=== PATIENT | male | born 1965 ===

== ENCOUNTER 2023-08-18 08:13 | Inpatient (IN) | payer BC, OTHER ==
[2023-08-18] MEDS ORDERED: RX INFO: IV CONTRAST WAS GIVEN 1 EACH MISC MISCELLANE PRN (10:47)
[2023-08-18] MEDS ORDERED: HEPARIN SODIUM 1,000 UN/ML (10ML VL) IV PRN (10:52)
[2023-08-18] MEDS: SODIUM CHLORIDE 0.9% 1,000 ML IV SCH (11:16)
[2023-08-18] MEDS: HEPARIN SOD,PORK IN 0.45% NACL 25,000 UNIT in 0.45% NACL 1 250ML.BAG IV SCH (11:26)
[2023-08-18] MEDS ORDERED: METOPROLOL TARTRATE 25 MG TAB PO ONE (11:30)
[2023-08-18] MEDS: LOSARTAN 50 MG TAB PO SCH ×3 (11:31→20:19)
[2023-08-18 12:29] LABS: Basophils % (A) 1 %; Eosinophils # (A) 0.2 k/uL (0-0.7); Eosinophils % (A) 3 %; HCT 42.9 % (39.0-53.0); HGB 14.9 gm/dL (13.0-17.5); Lymphocytes # (A) 2.8 k/uL (1.0-4.8); Lymphocytes % (A) 43 %; MCH 30.3 pg (25.0-35.0); MCHC 34.7 g/dL (31.0-37.0); MCV 87.5 fL (80.0-100.0); Mean Platelet Volume 7.3; Monocytes # (A) 0.3 k/uL (0-1.0); Monocytes % (A) 5 %; Neutrophils # (A) 2.9 k/uL (1.3-7.7); Neutrophils % (A) 45 %; Platelet Count 211 k/uL (150-450); RBC 4.91 m/uL (4.30-5.90); WBC 6.4 k/uL (3.8-10.6)
[2023-08-18 12:46] LABS: INR 1.1 (<1.2); Partial Thromboplastin Time 24.6 sec (22.0-30.0); Prothrombin Time 11.5 sec (10.0-12.5)
--- NOTE | 2023-08-18 13:18 | US ---
EXAMINATION TYPE: Pre-Operative Non-Invasive Evaluation of the hand for Potential Radial Artery Demetra , Measurements only DATE OF EXAM: 08/18/2023 12:46 PM CLINICAL INDICATION: Male, 57 years old with history of measurements only; SIDE PERFORMED: Left Right wrist has compression bandage from procedure. TECHNIQUE: Radial artery is measured utilizing real time linear array sonography. Dominant hand: Right Duplex Findings: Radial Artery: Color flow seen Measurements in mm, transverse view: Right Radial: not done / not ordered Left Radial: Proximal: 4.1 x 4.3 mm Mid: 3.5 x 4.2 mm Distal: 2.9 x 3.6 mm IMPRESSION: See above.
--- NOTE | 2023-08-18 13:19 | US ---
EXAMINATION TYPE: US vein mapping BIL DATE OF EXAM: 08/18/2023 12:46 PM COMPARISON: NONE CLINICAL INDICATION: Male, 57 years old with history of preop cardiac surgery; SIDE PERFORMED: TECHNIQUE: Lower extremity saphenous vein is examined and measured utilizing real time linear array sonography. Patient History: Smoker: former x 9 years Heart Disease: yes, two heart stents Previous DVT: no Vascular Surgery: yes Discoloration: no Hypertension: yes Diabetes: no Paralysis: no Varicosities: no Edema: no DUPLEX FINDINGS: Measurements in mm: Right Greater Saphenous: Groin: 4.7 x 4.6 mm High Thigh: 4.0 x 4.9 mm Mid Thigh: 3.5 x 4.4 mm Above Knee: 3.3 x 3.8 mm Knee: 3.4 x 3.5 mm Below Knee: 3.4 x 4.6 mm Mid Calf: 2.9 x 4.9 mm At Ankle: 3.5 x 3.9 mm Left Greater Saphenous: Groin: 5.8 x 5.6 mm High Thigh: 2.6 x 4.0 mm Mid Thigh: 5.5 x 5.7 mm Above Knee: 3.4 x 4.7 mm Knee: 3.1 x 3.8 mm Below Knee: 3.5 x 4.1 mm Mid Calf: 3.7 x 4.4 mm At Ankle: 3.1 x 3.9 mm IMPRESSION: 1. Bilateral GSV measurements listed above. 2. Performing surgeon to determine viability as conduit.
--- NOTE | 2023-08-18 13:26 | US ---
EXAMINATION TYPE: US carotid duplex BILAT DATE OF EXAM: 08/18/2023 COMPARISON: NONE CLINICAL INDICATION: Male, 57 years old with history of CABG; TECHNIQUE: Carotid duplex ultrasound examination. Indirect Doppler criteria was utilized. FINDINGS: EXAM MEASUREMENTS: RIGHT: Peak Systolic Velocity (PSV) cm/sec ----- Right CCA: 32 ----- Right ICA: 106 ----- Right ECA: 112 ICA/CCA ratio: 1.7 RIGHT: End Diastole cm/sec ----- Right CCA: 15 ----- Right ICA: 27 ----- Right ECA: 16 LEFT: Peak Systolic Velocity (PSV) cm/sec ----- Left CCA: 82 ----- Left ICA: 112 ----- Left ECA: 150 ICA/CCA ratio: 1.4 LEFT: End Diastole cm/sec ----- Left CCA: 23 ----- Left ICA: 24 ----- Left ECA: 11 VERTEBRALS (direction of flow): Right Vertebral: Antegrade Left Vertebral: Antegrade Rhythm: Normal HEAD OF TALENT MANAGEMENT NOTES: Calcified plaque noted bilateral CCA bulbs, elevated velocities noted but still wi thin normal limits, and no intimal wall thickening seen. IMPRESSION: Bilateral atherosclerotic disease with no significant hemodynamic stenosis as visualized. Criteria for Assigning % of Stenosis / Diameter reduction (Estimation based on the indirect measurements of the internal carotid artery velocities (ICA PSV). 1. Normal (no stenosis)=ICA PSV < 125 cm/s: ratio < 2.0: ICA EDV<40 cm/s. 2. Less than 50% stenosis=ICA PSV < 125 cm/s: ratio < 2.0: ICA EDV<40 cm/s. 3. 50 to 69% stenosis=ICA PSV of 125 to 230 cm/s: ration 2.0 ? 4.0: ICA EDV 40-100 cm/s. 4. Greater than 70% stenosis to near occlusion= ICA PSV > 230 cm/s: ratio > 4.0: ICA EDV > 100 cm/s. 5. Near occlusion= ICA PSV velocities may be low or undetectable: variable ratio and ICA EDV. 6. Total occlusion=unable to detect flow.
--- NOTE | 2023-08-18 14:52 | US ---
EXAMINATION TYPE: US arterial LE single level DATE OF EXAM: 08/18/2023 2:28 PM CLINICAL INDICATION: Male, 57 years old with history of Ankle Brachial Index (TANVI); open heart History of: Smoker: previous Hypertension: Yes Diabetic: No Hyperlipidemia: Yes TIA/CVA: Yes Previous Vascular Surgery: Yes CAD: No SD: Yes Vascular Ulcers: No Claudication: No Gangrene: No Doppler Waveforms: Right: Multiphasic Left: Multiphasic Ankle-Brachial Indices: Right: 1.0 Left: 1.0 Toe Brachial Indices: Right: 0.92 Left: 0.73 IMPRESSION: Normal bilateral TANVI.
--- NOTE | 2023-08-18 15:14 | P.GSCN ---
History of Present Illness Consult date: 08/18/23 Reason for Consult: Coronary artery disease Requesting physician: Carlos Gómez History of present illness: This is a 57-year-old gentleman who follows with the [facility] outpatient for primary care. He has a previous medical history of coronary artery disease with previous myocardial infarction and PCI, hypertension, hyperlipidemia, previous tobacco dependence and occasional EtOH use. This gentleman has had symptoms of chest pain and pressure with moderate amount of activity. Apparently he underwent stress test on August 15 with evidence of inferior STT wave changes, reversible defect in the inferior wall with preserved ejection fraction. He underwent heart catheterization today at [facility] by Dr. Gómez which demonstrated severe triple vessel disease, complete occlusion of the right coronary artery, 70% ramus stenosis, proximal LAD stenosis 95%, and collaterals from the left system predominantly circumflex supplying the distal branches of the RCA as well as the main trunk. He also had transthoracic echocardiogram completed demonstrating normal left ventricular size and function with EF 55% and no significant valvular pathology. Due to findings on heart catheterization Dr. Gómez contacted Dr. Walls and transferred the patient to [facility] for surgical revascularization recommendations. Review of Systems Review of systems was completed and was negative except as noted - Cardiovascular Reports as per HPI, Reports chest pain - Gastrointestinal Reports dyspepsia - Psychiatric Reports anxiety Past Medical History Past Medical History: Coronary Artery Disease (CAD), Chest Pain / Angina, Hyperlipidemia, Hypertension, Myocardial Infarction ([place]) History of Any Multi-Drug Resistant Organisms: None Reported Past Surgical History: Heart Catheterization With Stent, Hernia Repair Past Anesthesia/Blood Transfusion Reactions: No Reported Reaction Date of Last Stent Placement:: 2000 Past Psychological History: Anxiety Smoking Status: Former smoker Past Alcohol Use History: Occasional Additional Past Alcohol Use History / Comment(s): 4 drinks per week Past Drug Use History: None Reported Additional History: Quit smoking 9 years ago Medications and Allergies Home Medications Medication Instructions Recorded Confirmed Type Aspirin 81 mg PO DAILY 08/18/23 08/18/23 History Cyanocobalamin (Vitamin B-12) 1,000 mcg PO DAILY 08/18/23 08/18/23 History [Vitamin B-12] Ergocalciferol (Vitamin D2) 1,250 mcg PO TH 08/18/23 08/18/23 History [Drisdol (50,000 Iu)] Loratadine [Claritin] 10 mg PO DAILY 08/18/23 08/18/23 History Nitroglycerin Sl Tabs [Nitrostat] 0.4 mg SUBLINGUAL Q5M PRN 08/18/23 08/18/23 History [place]-3/Dha/Epa/Fish Oil [Fish Oil 1 cap PO DAILY 08/18/23 08/18/23 History 1,000 mg Softgel] atenoloL [Tenormin] 50 mg PO DAILY 08/18/23 08/18/23 History lisinopriL [Zestril] 20 mg PO DAILY 08/18/23 08/18/23 History Allergies Allergy/AdvReac Type Severity Reaction Status Date / Time Penicillins Allergy Unknown Verified 08/18/23 13:09 Childhood Surgical - Exam Vital Signs Pulse Resp BP Pulse Ox 50 L 18 176/110 98 08/18/23 10:05 08/18/23 10:05 08/18/23 10:05 08/18/23 10:05 CONSTITUTIONAL: Awake and alert, appears comfortable, cooperative, well- developed, well-nourished, no pain, no acute distress EYES: Pupils equal, round, reactive to light, normal ocular movement ENT: Moist mucous membranes without oral lesions present NECK: No masses, no bruits, trachea midline RESPIRATORY: Lungs sounds clear to auscultation bilaterally. Respirations even, nonlabored. Currently on room air with oxygen saturation 97%. Strong cough. No chest wall deformities. No clubbing or cyanosis present CARDIOVASCULAR: S1, S2 present. Regular rate and rhythm, sinus rhythm on telemetry. Palpable peripheral pulses bilaterally. No edema present. No calf pain or tenderness noted. No significant lower extremity varicosities noted. Left radial Manan's test less than 8 seconds. GASTROINTESTINAL: Abdomen soft, nontender, nondistended without masses or organomegaly noted. There is no rebound or guarding present. Active bowel sounds present 4 quadrants. GENITOURINARY: Deferred INTEGUMENTARY: Skin is warm and dry with evidence of good perfusion. NEUROLOGIC: Cranial nerves II through XII intact, normal coordination, no obvious motor or sensory deficits, speech is normal MUSKULOSKELETAL: Able to move all extremities, strength equal bilaterally, normal posture PSYCHIATRIC: Alert and oriented to person place and time, appropriate affect, intact judgment and insight Results - Labs 08/18/23 11:58 - Imaging Additional studies: Cardiac catheterization films reviewed with Dr. Walls Assessment and Plan Assessment: Coronary artery disease, previous myocardial infarction and PCI in 2000 Hypertension Hyperlipidemia Previous tobacco dependence Plan: The patient was seen and examined on the cardiac stepdown unit with Dr. Walls. Chart/diagnostics were reviewed. The usual perioperative course of open heart surgery is discussed in detail with the patient and his family, risks benefits were reviewed, all questions were answered and the patient does consent to surgery. Preoperative testing was initiated, was completed will calculate STS risk score and discuss with the patient. 5 m walk test completed, #1 2.56 seconds, #2 3.37 seconds, #3 2.98 seconds. Recommend continuing aspirin, statin, beta cathie. We will consult pulmonology after bedside spirometry completed. Increase activity as tolerated. More recommendations to follow regarding timing of surgical revascularization. Thank you Dr. Gómez for this consult, we will follow along with you. I have personally seen and examined the patient, performed the documentation and the assessment and plan as written. Number of minutes spent on the visit: 30. FREDIS Hidalgo
[2023-08-18] MEDS: ATORVASTATIN 80 MG TAB PO SCH (20:19)
[2023-08-18] MEDS: METOPROLOL TARTRATE 25 MG TAB PO SCH (20:19)
[2023-08-19] MEDS: SODIUM CHLORIDE 0.9% 1,000 ML IV SCH (02:59)
[2023-08-19] MEDS: HEPARIN SOD,PORK IN 0.45% NACL 25,000 UNIT in 0.45% NACL 1 250ML.BAG IV SCH (06:48)
--- NOTE | 2023-08-19 08:28 | HP ---
HISTORY AND PHYSICAL CHIEF COMPLAINT: Chest pain. HISTORY OF PRESENT ILLNESS: This is a 57-year-old white male, history can be found in the documents accompanying him from [facility] where he was admitted with chest pain. He underwent cardiac cath and was found to have triple-vessel disease and was transferred here for definitive treatment. REVIEW OF SYSTEMS: He is currently not having chest pain. He has had no shortness of breath, headache, abdominal pain, etc. PAST MEDICAL HISTORY, FAMILY HISTORY AND PERSONAL AND SOCIAL HISTORIES: Can be found in detail from [facility] records. PHYSICAL EXAMINATION: VITAL SIGNS: Normal. HEENT: Head, ears, eyes, nose, mouth and throat are normal. CHEST: Clear. CARDIAC: Normal sinus rhythm. ABDOMEN: Soft and nontender without any visceromegaly or masses. EXTREMITIES: Normal. NEUROLOGICAL: He is intact. DIAGNOSIS: He is admitted to the hospital with diagnosis, 1. Triple-vessel coronary artery disease. PLAN: Consult with both cardiology and cardiac surgery. MMODL / IJN: [id number] /
[2023-08-19 09:11] LABS: Basophils # (A) 0.1 k/uL (0-0.2); Basophils % (A) 1 %; Eosinophils # (A) 0.2 k/uL (0-0.7); Eosinophils % (A) 4 %; HCT 45.2 % (39.0-53.0); HGB 15.4 gm/dL (13.0-17.5); Lymphocytes # (A) 2.2 k/uL (1.0-4.8); Lymphocytes % (A) 39 %; MCH 30.1 pg (25.0-35.0); MCHC 34.1 g/dL (31.0-37.0); MCV 88.3 fL (80.0-100.0); Mean Platelet Volume 7.2; Monocytes # (A) 0.3 k/uL (0-1.0); Monocytes % (A) 5 %; Neutrophils # (A) 2.8 k/uL (1.3-7.7); Neutrophils % (A) 49 %; Platelet Count 221 k/uL (150-450); RBC 5.12 m/uL (4.30-5.90); WBC 5.7 k/uL (3.8-10.6)
[2023-08-19 09:29] LABS: Prothrombin Time 11.3 sec (10.0-12.5)
[2023-08-19] MEDS: METOPROLOL TARTRATE 25 MG TAB PO SCH ×2 (09:43→22:08)
[2023-08-19] MEDS: HEPARIN SODIUM,PORCINE 5,000 UNIT/ML 1 ML VIAL SQ SCH ×2 (09:43→18:03)
[2023-08-19] MEDS: ASPIRIN 81 MG PO SCH (09:43)
[2023-08-19 09:44] LABS: African American GFR (CKD) >90 (>60 ml/min/1.73 sqM); Anion Gap 15 mmol/L; Blood Urea Nitrogen 15 mg/dL (9-20); Calcium 9.5 mg/dL (8.4-10.2); Carbon Dioxide 20 mmol/L (22-30); Chloride 104 mmol/L (98-107); Glucose 163 mg/dL (74-99); Magnesium 1.9 mg/dL (1.6-2.3); Non-African American GFR(CKD) >90 (>60 ml/min/1.73 sqM); Potassium 4.1 mmol/L (3.5-5.1); Sodium 139 mmol/L (137-145)
[2023-08-19] MEDS ORDERED: NITROGLYCERIN SL TABS 0.4 MG TAB SUBLINGUAL PRN (10:51)
[2023-08-19] MEDS ORDERED: atenoloL 50 MG TAB PO SCH (11:00)
[2023-08-19] MEDS ORDERED: ASPIRIN 81 MG PO SCH (11:00)
[2023-08-19] MEDS ORDERED: lisinopriL 20 MG TAB PO SCH (11:00)
--- NOTE | 2023-08-19 11:40 | P.PN ---
Subjective Progress Note Date: 08/19/23 Principal diagnosis: Coronary artery disease. History of previous myocardial infarction and PCI in 2000, hypertension, hyperlipidemia, previous tobacco dependence The patient was seen and examined this morning sitting up in bed on the cardiac stepdown unit in no acute distress eating breakfast. He denies any chest pain/shortness of breath/abdominal pain currently. Discussion took place yesterday between the patient/ and Dr. Walls. At this time our plan is for off pump CABG Tuesday08/22/[address] Walls. This is agreeable to the patient. STS risk calculated and discussed with the patient. No other new concerns. Objective - Vital Signs Vital signs: Vital Signs Temp 97.9 F 08/19/23 00:00 Pulse 62 08/19/23 04:00 Resp 16 08/19/23 04:00 BP 148/82 08/19/23 04:00 Pulse Ox 98 08/19/23 04:00 FiO2 Intake & Output 08/18/23 08/19/23 08/19/23 18:59 06:59 18:59 Intake Total 69.646 162.778 360 Output Total 200 Balance 69.646 -37.222 360 Weight 86.183 kg 87 kg Intake: Intake, IV Titration 69.646 162.778 Amount Heparin Sod,Pork in 0.45% 69.646 162.778 NaCl 25,000 unit In 0.45 % NaCl 1 250ml.bag @ 11.6 UNITS/KG/HR 9.997 mls/hr IV .Q24H [facility] Rx#: [id number] Oral 0 360 Output: Urine 200 Other: Voiding Method Toilet Toilet # Voids 1 - Exam CONSTITUTIONAL: Appears comfortable, cooperative, no acute distress RESPIRATORY: Lungs sounds diminished bilaterally. Respirations even, nonlabored. Currently on room air with oxygen saturation 95%. Able to achieve 2500 mL on incentive spirometry. Strong cough. CARDIOVASCULAR: S1, S2 present. Regular rate and rhythm, sinus rhythm on telemetry. Palpable peripheral pulses bilaterally. No edema present. No calf pain or tenderness noted GASTROINTESTINAL: Abdomen soft, nontender, nondistended. Active bowel sounds present 4 quadrants. Tolerating diet. GENITOURINARY: Continues to void INTEGUMENTARY: Skin is warm and dry NEUROLOGIC: Cranial nerves II through XII intact MUSKULOSKELETAL: Able to move all extremities, strength equal bilaterally, gait normal PSYCHIATRIC: Alert and oriented to person place and time, appropriate affect, intact judgment and insight - Labs CBC & Chem 7: 08/19/23 08:33 08/19/23 08:33 Labs: Abnormal Lab Results - Last 24 Hours (Table) 08/19/23 08/19/23 08/19/23 Range/Units 00:33 08:33 08:33 APTT 35.1 H 39.4 H (22.0-30.0) sec Carbon Dioxide 20 L (22-30) mmol/L Glucose 163 H (74-99) mg/dL - Imaging and Cardiology all preop studies completed Assessment and Plan Assessment: Coronary artery disease, previous myocardial infarction and PCI in 2000 Hypertension Hyperlipidemia Previous tobacco dependence Plan: Continue to maximize medical therapy with aspirin, statin, beta cathie Encourage incentive spirometry use Plan is for off pump myocardial revascularization, left internal mammary artery, possible right internal mammary artery/left radial artery/greater saphenous vein harvest, ligation of the left atrial appendage by Dr. Walls 08/22/23 Pulmonology consulted for preop clearance, pulmonary optimization preop Increase activity as tolerated Medical management of other comorbidities per internal medicine, cardiology More recommendations to follow
--- NOTE | 2023-08-19 12:39 | P.CRDCN ---
History of Present Illness History of present illness: HISTORY OF PRESENT ILLNESS: This is a 57-year-old male who was transferred to [facility] yesterday from [facility] where he underwent cardiac catheterization with Dr. Gómez. Cardiac catheterization revealed severe triple vessel disease, complete occlusion of the right coronary artery, 70% ramus stenosis, proximal LAD stenosis 95%, and collaterals from the left system predominantly circumflex supplying the distal branches of the RCA as well as the main trunk. He also had transthoracic echocardiogram completed demonstrating normal left ventricular size and function with EF 55% and no significant valvular pathology. The patient was examined this morning at the bedside. He denies chest pain or pressure. He denies any shortness of breath. He remains on IV heparin. He has been evaluated by CT surgery with plans for possible CABG on Tuesday. REVIEW OF SYSTEMS: At the time of my exam: CONSTITUTIONAL: Denies fever or chills. HEENT: Denies blurred vision, vision changes, or eye pain. Denies hemoptysis CARDIOVASCULAR: Denies chest pain. Denies orthopnea. Denies PND. Denies palpitations RESPIRATORY: Denies shortness of breath. GASTROINTESTINAL: Denies abdominal pain. Denies nausea or vomiting. HEMATOLOGIC: Denies bleeding disorders. GENITOURINARY: Denies any blood in urine. SKIN: Denies pruitis. Denies rash. PHYSICAL EXAM: VITAL SIGNS: Reviewed. GENERAL: Well-developed in no acute distress. HEENT: Head is normocephalic. Pupils are equal, round. Sclerae anicteric. Mucous membranes of the mouth are moist. Neck supple. No JVD or thyromegaly LUNGS: Respirations even and unlabored. Lungs essentially clear to auscultation bilaterally. HEART: Regular rate and rhythm. S1 and S2 heard. ABDOMEN: Soft. Nondistended. Nontender. EXTREMITIES: Normal range of motion. No clubbing or cyanosis. Peripheral pulses intact. No lower extremity edema NEUROLOGIC: Awake and alert. Oriented x 3. ASSESSMENT: Triple vessel coronary artery disease History of PCI in 2000 Hypertension Hyperlipidemia Former nicotine dependence PLAN: Continue current cardiac medications Per CT surgery, okay to discontinue IV heparin as long as patient is not having any chest pain. IV heparin discontinued and patient started on subcu Continue telemetry monitoring CT surgery following. Plan for CABG on 08/22/2023 Further recommendations pending patient's course Nurse practitioner note has been reviewed by physician. Signing provider agrees with the documented findings, assessment, and plan of care. Past Medical History Past Medical History: Coronary Artery Disease (CAD), Chest Pain / Angina, Hyperlipidemia, Hypertension, Myocardial Infarction ([place]) Last Myocardial Infarction Date:: 2000 History of Any Multi-Drug Resistant Organisms: None Reported Past Surgical History: Heart Catheterization With Stent, Hernia Repair Additional Past Surgical History / Comment(s): ear plastic surgery Past Anesthesia/Blood Transfusion Reactions: No Reported Reaction Date of Last Stent Placement:: 2000 Past Psychological History: Anxiety Smoking Status: Former smoker Past Alcohol Use History: Occasional Additional Past Alcohol Use History / Comment(s): 4 drinks per week Past Drug Use History: None Reported Medications and Allergies Home Medications Medication Instructions Recorded Confirmed Type Aspirin 81 mg PO DAILY 08/18/23 08/18/23 History Cyanocobalamin (Vitamin B-12) 1,000 mcg PO DAILY 08/18/23 08/18/23 History [Vitamin B-12] Ergocalciferol (Vitamin D2) 1,250 mcg PO TH 08/18/23 08/18/23 History [Drisdol (50,000 Iu)] Loratadine [Claritin] 10 mg PO DAILY 08/18/23 08/18/23 History Nitroglycerin Sl Tabs [Nitrostat] 0.4 mg SUBLINGUAL Q5M PRN 08/18/23 08/18/23 History [place]-3/Dha/Epa/Fish Oil [Fish Oil 1 cap PO DAILY 08/18/23 08/18/23 History 1,000 mg Softgel] atenoloL [Tenormin] 50 mg PO DAILY 08/18/23 08/18/23 History lisinopriL [Zestril] 20 mg PO DAILY 08/18/23 08/18/23 History Allergies Allergy/AdvReac Type Severity Reaction Status Date / Time Penicillins Allergy Unknown Verified 08/18/23 13:09 Childhood Physical Exam Vitals: Vital Signs Temp Pulse Pulse Resp BP Pulse Ox 08/19/23 11:50 98.2 F 63 16 135/82 94 L 08/19/23 09:00 98.3 F 59 L 17 159/88 95 08/19/23 04:00 62 16 148/82 98 08/19/23 00:00 97.9 F 56 L 17 154/83 98 08/18/23 20:18 97.8 F 72 16 162/93 96 08/18/23 16:00 76 17 140/65 95 Intake and Output 08/18/23 08/19/23 08/19/23 22:59 06:59 14:59 Intake Total 69.646 162.778 391.473 Output Total 200 Balance 69.646 -37.222 391.473 Intake: Intake, IV Titration 69.646 162.778 31.473 Amount Heparin Sod,Pork in 0.45% 69.646 162.778 31.473 NaCl 25,000 unit In 0.45 % NaCl 1 250ml.bag @ 11.6 UNITS/KG/HR 9.997 mls/hr IV .Q24H [facility] Rx#: [id number] Oral 0 360 Output: Urine 200 Other: Voiding Method Toilet Toilet Toilet # Voids 1 Weight 87 kg Results 08/19/23 08:33 08/19/23 08:33 Coagulation 08/18/23 08/18/23 08/19/23 Range/Units 11:58 17:25 00:33 PT 11.5 (10.0-12.5) sec APTT 24.6 29.1 35.1 H (22.0-30.0) sec 08/19/23 08/19/23 Range/Units 08:33 08:33 PT 11.3 (10.0-12.5) sec APTT 39.4 H (22.0-30.0) sec CBC 08/19/23 Range/Units 08:33 WBC 5.7 (3.8-10.6) k/uL RBC 5.12 (4.30-5.90) m/uL Hgb 15.4 (13.0-17.5) gm/dL Hct 45.2 (39.0-53.0) % Plt Count 221 (150-450) k/uL Comprehensive Metabolic Panel 08/19/23 Range/Units 08:33 Sodium 139 (137-145) mmol/L Potassium 4.1 (3.5-5.1) mmol/L Chloride 104 (98-107) mmol/L Carbon Dioxide 20 L (22-30) mmol/L BUN 15 (9-20) mg/dL Creatinine 0.79 (0.66-1.25) mg/dL Glucose 163 H (74-99) mg/dL Calcium 9.5 (8.4-10.2) mg/dL Current Medications Generic Name Dose Route Start Last Admin Trade Name Freq PRN Reason Stop Dose Admin Aspirin 81 mg 08/19/23 09:00 08/19/23 09:43 Aspirin 81 Mg PO 81 mg DAILY [facility] Administration Atorvastatin Calcium 80 mg 08/18/23 21:00 08/18/23 20:19 Atorvastatin 80 Mg Tab PO 80 mg HS [facility] Administration Heparin Sodium (Porcine) 5,000 unit 08/19/23 09:15 08/19/23 09:43 Heparin Sodium,Porcine 5,000 Unit/Ml 1 Ml Vial SQ 5,000 unit Q8HR [facility] Administration Loratadine 10 mg 08/20/23 09:00 Loratadine 10 Mg Tab PO DAILY [facility] Losartan Potassium 50 mg 08/18/23 21:00 08/18/23 20:19 Losartan 50 Mg Tab PO 50 mg HS [facility] Administration Metoprolol Tartrate 25 mg 08/18/23 21:00 08/19/23 09:43 Metoprolol Tartrate 25 Mg Tab PO 25 mg BID [facility] Administration Miscellaneous Information 1 each 08/18/23 10:47 Rx Info: Iv Contrast Was Given 1 Each Misc MISCELLANE 08/20/23 10:47 DAILY PRN Per Protocol Mupirocin 1 applic 08/19/23 21:00 Mupirocin 2% Oint 22 Gm Tube NASAL BID [facility] Protocol Nitroglycerin 0.4 mg 08/19/23 10:51 Nitroglycerin Sl Tabs 0.4 Mg Tab SUBLINGUAL Q5M PRN Chest Pain Intake and Output 08/18/23 08/19/23 08/19/23 22:59 06:59 14:59 Intake Total 69.646 162.778 391.473 Output Total 200 Balance 69.646 -37.222 391.473 Intake: Intake, IV Titration 69.646 162.778 31.473 Amount Heparin Sod,Pork in 0.45% 69.646 162.778 31.473 NaCl 25,000 unit In 0.45 % NaCl 1 250ml.bag @ 11.6 UNITS/KG/HR 9.997 mls/hr IV .Q24H [facility] Rx#: [id number] Oral 0 360 Output: Urine 200 Other: Voiding Method Toilet Toilet Toilet # Voids 1 Weight 87 kg 08/19/23 08:33 08/19/23 08:33
--- NOTE | 2023-08-19 13:50 | P.CNPUL ---
History of Present Illness Consult date: 08/19/23 Requesting physician: Armand Cevallos Reason for consult: other Chief complaint: Preoperative pulmonary evaluation. History of present illness: Pulmonary consult dated 08/19/2023. 57-year-old male recently transferred from [facility], to [facility], after having a cardiac catheterization. The patient's catheterization revealed severe triple vessel disease, including very right coronary artery, proximal LAD, and ramus. The patient is scheduled to have bypass surgery on August 22. Currently is on no oxygen. No IV fluids. The patient does smoke cigarettes for 33 years. He does have a history of hypertension hyperlipidemia. Yesterday, we saw her lung function on this patient. His FEV1 was 2.54, suggesting that his lung function was near normal. His predicted FEV1 percent was 75. Based on the FEV1 alone, the patient's at no increased operative risk. I do not have the benefit of the MVV, or the RV/TLC ratio. Current labs include a white count 5.7, he will 15.4, hematocrit 45.2, and a normal platelet count. PTT is 39.4. Sodium 139, potassium 4.1, chlorides 104, CO2 20, BUN 15, and creatinine 0.79. Glucose 163. Review of Systems REVIEW OF SYSTEMS: CONSTITUTIONAL: [Negative.] NEUROLOGIC: [ Negative.] HEENT: [ Negative.] CARDIAC: Chest pain. PULMONARY: [Negative.] GI: [Negative.] : [Negative.] RHEUMATOLOGIC: [ Negative.] IMMUNOLOGIC: [ Negative.] ENDOCRINE: [Negative. ] DERMATOLOGIC: [Negative.] Past Medical History Past Medical History: Coronary Artery Disease (CAD), Chest Pain / Angina, Hyperlipidemia, Hypertension, Myocardial Infarction (LA) Last Myocardial Infarction Date:: 2000 History of Any Multi-Drug Resistant Organisms: None Reported Past Surgical History: Heart Catheterization With Stent, Hernia Repair Additional Past Surgical History / Comment(s): ear plastic surgery Past Anesthesia/Blood Transfusion Reactions: No Reported Reaction Date of Last Stent Placement:: 2000 Past Psychological History: Anxiety Smoking Status: Former smoker Past Alcohol Use History: Occasional Additional Past Alcohol Use History / Comment(s): 4 drinks per week Past Drug Use History: None Reported Medications and Allergies Home Medications Medication Instructions Recorded Confirmed Type Aspirin 81 mg PO DAILY 08/18/23 08/18/23 History Cyanocobalamin (Vitamin B-12) 1,000 mcg PO DAILY 08/18/23 08/18/23 History [Vitamin B-12] Ergocalciferol (Vitamin D2) 1,250 mcg PO TH 08/18/23 08/18/23 History [Drisdol (50,000 Iu)] Loratadine [Claritin] 10 mg PO DAILY 08/18/23 08/18/23 History Nitroglycerin Sl Tabs [Nitrostat] 0.4 mg SUBLINGUAL Q5M PRN 08/18/23 08/18/23 History Genoa-3/Dha/Epa/Fish Oil [Fish Oil 1 cap PO DAILY 08/18/23 08/18/23 History 1,000 mg Softgel] atenoloL [Tenormin] 50 mg PO DAILY 08/18/23 08/18/23 History lisinopriL [Zestril] 20 mg PO DAILY 08/18/23 08/18/23 History Allergies Allergy/AdvReac Type Severity Reaction Status Date / Time Penicillins Allergy Unknown Verified 08/18/23 13:09 Childhood Physical Exam Osteopathic Statement: *. No significant issues noted on an osteopathic structural exam other than those noted in the History and Physical/Consult. Vitals: Vital Signs Temp Pulse Pulse Resp BP Pulse Ox 08/19/23 11:50 98.2 F 63 16 135/82 94 L 08/19/23 09:00 98.3 F 59 L 17 159/88 95 08/19/23 04:00 62 16 148/82 98 08/19/23 00:00 97.9 F 56 L 17 154/83 98 08/18/23 20:18 97.8 F 72 16 162/93 96 08/18/23 16:00 76 17 140/65 95 Intake and Output 08/18/23 08/19/23 08/19/23 22:59 06:59 14:59 Intake Total 69.646 162.778 391.473 Output Total 200 Balance 69.646 -37.222 391.473 Intake: Intake, IV Titration 69.646 162.778 31.473 Amount Heparin Sod,Pork in 0.45% 69.646 162.778 31.473 NaCl 25,000 unit In 0.45 % NaCl 1 250ml.bag @ 11.6 UNITS/KG/HR 9.997 mls/hr IV .Q24H [facility] Rx#: [id number] Oral 0 360 Output: Urine 200 Other: Voiding Method Toilet Toilet Toilet # Voids 1 Weight 87 kg No acute distress, oriented 3. Room air saturation 94%. HEENT examination is grossly unremarkable. Mucous membranes are moist. No oral lesions. Neck supple. Full range of motion. No adenopathy thyromegaly or neck vein distention. Cardiovascular examination reveals regular rhythm rate. S1-S2 normal. No S3 or S4. No discernible murmur noted. Heart rate 63 bpm. Lungs reveal clear breath sounds. Breath sounds are equal bilaterally. No adventitious lung sounds including wheezes rhonchi or crackles. Abdomen soft bowel sounds are heard. No masses or tenderness. Extremities are intact. No cyanosis clubbing or edema. Skin is without rash or lesion. Neurologic examination is brief but nonfocal. Results - Laboratory Findings CBC and BMP: 08/19/23 08:33 08/19/23 08:33 PT/INR, D-dimer PT 11.3 sec (10.0-12.5) 08/19/23 08:33 INR 1.0 (<1.2) 08/19/23 08:33 Abnormal lab findings: Abnormal Labs 08/19/23 08/19/23 08/19/23 00:33 08:33 08:33 APTT 35.1 H 39.4 H Carbon Dioxide 20 L Glucose 163 H Assessment and Plan Assessment: Severe triple-vessel coronary artery disease, with anticipated bypass surgery, 08/22/2023. Previous PCI, 2000. History of hypertension. History of hyperlipidemia. Former nicotine dependence. Mild COPD, with an FEV1 percent at 75% of predicted. Plan: Plan dated 08/19/2023. Based on the patient's FEV1, he's had no increased operative risk. He has very mild COPD. Today, we explained, that as lung and critical care physicians, our goal firstly, is to get the patient liberated from mechanical ventilation. Subsequent to that, we will follow the patient on a daily basis, to make sure he doesn't develop pleural effusion, lobar collapse, atelectasis, or pneumonia. In that regard, we explained to him that incentive spirometry is very important. Additional recommendations and suggestions are forthcoming. Based on lung function, the patient is at no increased operative risk. He has very mild COPD. No additional recommendations are made. Time with Patient: Greater than 30
[2023-08-19 16:04] LABS: LDL Cholesterol,Calculated 129.3 mg/dL (0.0-131.0)
[2023-08-19 16:54] LABS: Hepatitis A Antibody IgM Nonreactive; Hepatitis B Core IgM Nonreactive; Hepatitis B Surface Antigen Nonreactive; Hepatitis C IgG Antibody Nonreactive
[2023-08-19] MEDS: MUPIROCIN 2% OINT 22 GM TUBE NASAL SCH (22:08)
[2023-08-19] MEDS: LOSARTAN 50 MG TAB PO SCH (22:08)
[2023-08-19] MEDS: ATORVASTATIN 80 MG TAB PO SCH (22:08)
[2023-08-19] MEDS: ALPRAZolam 1 MG TAB PO PRN (22:35)
[2023-08-20] MEDS: HEPARIN SODIUM,PORCINE 5,000 UNIT/ML 1 ML VIAL SQ SCH ×4 (00:54→22:49)
--- NOTE | 2023-08-20 08:02 | XR ---
EXAMINATION TYPE: XR chest 2V DATE OF EXAM: 08/20/2023 COMPARISON: None INDICATION: Preop CABG TECHNIQUE: Frontal and lateral views of the chest are obtained. FINDINGS: The heart size is normal. The pulmonary vasculature is normal. The lungs are clear. IMPRESSION: 1. No acute pulmonary process.
--- NOTE | 2023-08-20 08:34 | P.PN ---
Subjective Progress Note Date: 08/20/23 Principal diagnosis: Coronary artery disease. History of previous myocardial infarction and PCI in 2000, hypertension, hyperlipidemia, previous tobacco dependence. Preoperative n irvin swab positive for colonized MRSA The patient was seen and examined this morning sitting up in bed on the cardiac stepdown unit in no acute distress although he was a bit teary eyed, anxious regarding surgery. He denies any chest pain/shortness of breath/abdominal pain currently. Our plan is for off pump CABG Tuesday08/22/[address] Walls. This is agreeable to the patient. STS risk calculated, patient considered to be low risk, discussed with the patient. No other new concerns. Objective - Vital Signs Vital signs: Vital Signs Temp 97.9 F 08/20/23 04:00 Pulse 58 L 08/20/23 04:00 Resp 16 08/20/23 04:00 BP 124/76 08/20/23 04:00 Pulse Ox 96 08/20/23 04:00 FiO2 Intake & Output 08/19/23 08/20/23 08/20/23 18:59 06:59 18:59 Intake Total 1351.473 Balance 1351.473 Intake: Intake, IV Titration 31.473 Amount Heparin Sod,Pork in 0.45% 31.473 NaCl 25,000 unit In 0.45 % NaCl 1 250ml.bag @ 11.6 UNITS/KG/HR 9.997 mls/hr IV .Q24H [facility] Rx#: [id number] Oral 1320 Other: Voiding Method Toilet Toilet # Voids 2 2 - Exam CONSTITUTIONAL: Appears comfortable, cooperative, no acute distress RESPIRATORY: Lungs sounds clear bilaterally. Respirations even, nonlabored. Currently on room air with oxygen saturation 96%. Able to achieve 3000 mL on incentive spirometry. Strong cough. CARDIOVASCULAR: S1, S2 present. Regular rate and rhythm, sinus rhythm on telemetry. Palpable peripheral pulses bilaterally. No edema present. No calf pain or tenderness noted GASTROINTESTINAL: Abdomen soft, nontender, nondistended. Active bowel sounds present 4 quadrants. Tolerating diet. GENITOURINARY: Continues to void INTEGUMENTARY: Skin is warm and dry NEUROLOGIC: Cranial nerves II through XII intact MUSKULOSKELETAL: Able to move all extremities, strength equal bilaterally, gait normal PSYCHIATRIC: Alert and oriented to person place and time, appropriate affect, intact judgment and insight - Labs CBC & Chem 7: 08/19/23 08:33 08/19/23 08:33 Labs: Abnormal Lab Results - Last 24 Hours (Table) 08/19/23 08/19/23 Range/Units 08:33 08:33 APTT 39.4 H (22.0-30.0) sec Carbon Dioxide 20 L (22-30) mmol/L Glucose 163 H (74-99) mg/dL Triglycerides 383.00 H (0.00-149.00) mg/dL Cholesterol 242.00 H (0.00-200.00) mg/dL VLDL Cholesterol, Calc 76.60 H (5.00-40.00) mg/dL HDL Cholesterol 36.10 L (40.00-60.00) mg/dL Microbiology - Last 24 Hours (Table) 08/18/23 13:03 Nasal Screen MRSA/MSSA - Final Nasal Swab Methicillin resist S. aureus Assessment and Plan Assessment: Coronary artery disease, complete occlusion of the right coronary artery, 70% ramus stenosis, proximal LAD stenosis 95% Previous myocardial infarction and PCI in 2000 Hypertension Hyperlipidemia, triglycerides 383, cholesterol 242, LDL 129 Previous tobacco dependence, preoperative FEV1 75% of predicted Preoperative nasal swab positive for colonized MRSA Plan: Continue to maximize medical therapy with aspirin, statin, beta cathie Encourage incentive spirometry use Plan is for off pump myocardial revascularization, left internal mammary artery, possible right internal mammary artery/left radial artery/greater saphenous vein harvest, ligation of the left atrial appendage by Dr. Walls 08/22/23 Pulmonology consulted for preop clearance, pulmonary optimization preop Increase activity as tolerated Continue nasal mupirocin Medical management of other comorbidities per internal medicine, cardiology More recommendations to follow
[2023-08-20] MEDS: ASPIRIN 81 MG PO SCH (08:44)
[2023-08-20] MEDS: MUPIROCIN 2% OINT 22 GM TUBE NASAL SCH ×2 (08:44→22:30)
[2023-08-20] MEDS: METOPROLOL TARTRATE 25 MG TAB PO SCH ×2 (08:44→22:30)
[2023-08-20] MEDS: LORATADINE 10 MG TAB PO SCH (08:44)
--- NOTE | 2023-08-20 09:02 | PN ---
PROGRESS NOTE DATE OF SERVICE: 08/19/2023 ROOM NUMBER: [id number]. CHIEF COMPLAINT: Coronary artery disease. HISTORY OF PRESENT ILLNESS: This gentleman is comfortable and is having no chest pain or shortness of breath. Vital signs are normal. He is going for surgery on Tuesday. PHYSICAL EXAMINATION: CHEST: Clear. CARDIAC: Normal. ABDOMEN: Soft, nontender. IMPRESSION: Coronary artery disease. PLAN: Operation on Tuesday. MMODL / IJN: [id number] /
--- NOTE | 2023-08-20 10:57 | P.PN ---
Subjective Progress Note Date: 08/20/23 Principal diagnosis: Coronary artery disease. Pulmonary consult dated 08/19/2023. 57-year-old male recently transferred from [facility], to [facility], after having a cardiac catheterization. The patient's catheterization revealed severe triple vessel disease, including very right coronary artery, proximal LAD, and ramus. The patient is scheduled to have bypass surgery on August 22. Currently is on no oxygen. No IV fluids. The patient does smoke cigarettes for 33 years. He does have a history of hypertension hyperlipidemia. Yesterday, we saw her lung function on this patient. His FEV1 was 2.54, suggesting that his lung function was near normal. His predicted FEV1 percent was 75. Based on the FEV1 alone, the patient's at no increased operative risk. I do not have the benefit of the MVV, or the RV/TLC ratio. Current labs include a white count 5.7, he will 15.4, hematocrit 45.2, and a normal platelet count. PTT is 39.4. Sodium 139, potassium 4.1, chlorides 104, CO2 20, BUN 15, and creatinine 0.79. Glucose 163. Progress note dated 08/20/2023. This is a 57-year-old male who was seen in consultation yesterday. The patient is having open heart surgery on August 22. He was found recently to have severe triple-vessel disease. His cardiac catheterization was done at [facility]. We did a preop evaluation on him. The patient's FEV1 was 2.54 L or 75% of predicted. Based on this number, he has very mild COPD, and is at no increased operative risk for general anesthesia. No new labs today. Objective - Vital Signs Vital signs: Vital Signs Temp 97.9 F 08/20/23 08:41 Pulse 77 08/20/23 08:41 Resp 20 08/20/23 08:41 BP 117/72 08/20/23 08:41 Pulse Ox 95 08/20/23 08:41 FiO2 Intake & Output 08/19/23 08/20/23 08/20/23 18:59 06:59 18:59 Intake Total 1351.473 Balance 1351.473 Intake: Intake, IV Titration 31.473 Amount Heparin Sod,Pork in 0.45% 31.473 NaCl 25,000 unit In 0.45 % NaCl 1 250ml.bag @ 11.6 UNITS/KG/HR 9.997 mls/hr IV .Q24H [facility] Rx#: [id number] Oral 1320 Other: Voiding Method Toilet Toilet Toilet # Voids 2 2 1 - Exam No acute distress, oriented 3. Room air saturation 94%. HEENT examination is grossly unremarkable. Mucous membranes are moist. No oral lesions. Neck supple. Full range of motion. No adenopathy thyromegaly or neck vein distention. Cardiovascular examination reveals regular rhythm rate. S1-S2 normal. No S3 or S4. No discernible murmur noted. Heart rate 63 bpm. Lungs reveal clear breath sounds. Breath sounds are equal bilaterally. No adventitious lung sounds including wheezes rhonchi or crackles. Abdomen soft bowel sounds are heard. No masses or tenderness. Extremities are intact. No cyanosis clubbing or edema. Skin is without rash or lesion. Neurologic examination is brief but nonfocal. - Labs CBC & Chem 7: 08/19/23 08:33 08/19/23 08:33 Labs: Abnormal Lab Results - Last 24 Hours (Table) 08/19/23 Range/Units 08:33 Triglycerides 383.00 H (0.00-149.00) mg/dL Cholesterol 242.00 H (0.00-200.00) mg/dL VLDL Cholesterol, Calc 76.60 H (5.00-40.00) mg/dL HDL Cholesterol 36.10 L (40.00-60.00) mg/dL Microbiology - Last 24 Hours (Table) 08/18/23 13:03 Nasal Screen MRSA/MSSA - Final Nasal Swab Methicillin resist S. aureus Assessment and Plan Assessment: Severe triple-vessel coronary artery disease, with anticipated bypass surgery, 08/22/2023. Previous PCI, 2000. History of hypertension. History of hyperlipidemia. Former nicotine dependence. Mild COPD, with an FEV1 percent at 75% of predicted. Plan: Plan dated 08/19/2023. Based on the patient's FEV1, he's had no increased operative risk. He has very mild COPD. Today, we explained, that as lung and critical care physicians, our goal firstly, is to get the patient liberated from mechanical ventilation. Subsequent to that, we will follow the patient on a daily basis, to make sure he doesn't develop pleural effusion, lobar collapse, atelectasis, or pneumonia. In that regard, we explained to him that incentive spirometry is very important. Additional recommendations and suggestions are forthcoming. Based on lung function, the patient is at no increased operative risk. He has very mild COPD. No additional recommendations are made. Plan dated 08/20/2023. The patient was seen in consultation yesterday. Based on lung function, the patient has very mild COPD, and is at no increased operative risk, based on his FEV1, that was excellent. We encourage him to get used to using the incentive spirometer. The patient will have surgery on August 22Tuesday. Additional recommendations and suggestions are forthcoming. We will continue to follow. Prognosis is guarded. Time with Patient: Less than 30
[2023-08-20 11:02] LABS: HCT 45.2 % (39.0-53.0); HGB 15.4 gm/dL (13.0-17.5); MCH 29.8 pg (25.0-35.0); MCV 87.7 fL (80.0-100.0); Mean Platelet Volume 7.5; Platelet Count 257 k/uL (150-450); RBC 5.16 m/uL (4.30-5.90); RDW 13.3 % (11.5-15.5); WBC 5.9 k/uL (3.8-10.6)
[2023-08-20 11:30] LABS: African American GFR (CKD) >90 (>60 ml/min/1.73 sqM); Anion Gap 14 mmol/L; Blood Urea Nitrogen 16 mg/dL (9-20); Calcium 9.8 mg/dL (8.4-10.2); Carbon Dioxide 22 mmol/L (22-30); Chloride 102 mmol/L (98-107); Glucose 181 mg/dL (74-99); Non-African American GFR(CKD) >90 (>60 ml/min/1.73 sqM); Potassium 3.9 mmol/L (3.5-5.1); Sodium 138 mmol/L (137-145)
--- NOTE | 2023-08-20 18:16 | P.PN ---
Subjective Progress Note Date: 08/20/23 Progress note: Patient is doing well from cardiac vessel standpoint. He is hemodynamics stable. His telemetry did not show any new alarams. PHYSICAL EXAM: VITAL SIGNS: Reviewed. GENERAL: Well-developed in no acute distress. HEENT: Head is normocephalic. Pupils are equal, round. Sclerae anicteric. Mucous membranes of the mouth are moist. Neck supple. No JVD or thyromegaly LUNGS: Respirations even and unlabored. Lungs essentially clear to auscultation bilaterally. HEART: Regular rate and rhythm. S1 and S2 heard. ABDOMEN: Soft. Nondistended. Nontender. EXTREMITIES: Normal range of motion. No clubbing or cyanosis. Peripheral pulses intact. No lower extremity edema NEUROLOGIC: Awake and alert. Oriented x 3. ASSESSMENT: Triple vessel coronary artery disease History of PCI in 2000 Hypertension Hyperlipidemia Former nicotine dependence PLAN: Continue current cardiac medications Per CT surgery, okay to discontinue IV heparin as long as patient is not having any chest pain. IV heparin discontinued and patient started on subcu Continue telemetry monitoring CT surgery following. Plan for CABG on 08/22/2023 Further recommendations pending patient's course Objective - Vital Signs Vital signs: Vital Signs Temp 98.2 F 08/20/23 15:34 Pulse 79 08/20/23 15:34 Resp 20 08/20/23 15:34 BP 134/94 08/20/23 15:34 Pulse Ox 95 08/20/23 15:34 FiO2 Intake & Output 08/19/23 08/20/23 08/20/23 18:59 06:59 18:59 Intake Total 1351.473 240 Balance 1351.473 240 Intake: Intake, IV Titration 31.473 Amount Heparin Sod,Pork in 0.45% 31.473 NaCl 25,000 unit In 0.45 % NaCl 1 250ml.bag @ 11.6 UNITS/KG/HR 9.997 mls/hr IV .Q24H [facility] Rx#: [id number] Oral 1320 240 Other: Voiding Method Toilet Toilet Toilet # Voids 2 2 2 - Labs CBC & Chem 7: 08/20/23 10:03 08/20/23 10:03 Labs: Abnormal Lab Results - Last 24 Hours (Table) 08/20/23 Range/Units 10:03 Glucose 181 H (74-99) mg/dL Microbiology - Last 24 Hours (Table) 08/18/23 13:03 Nasal Screen MRSA/MSSA - Final Nasal Swab Methicillin resist S. aureus
[2023-08-20] MEDS: ATORVASTATIN 80 MG TAB PO SCH (22:30)
[2023-08-20] MEDS: LOSARTAN 50 MG TAB PO SCH (22:30)
[2023-08-20] MEDS: ALPRAZolam 1 MG TAB PO PRN (22:49)
--- NOTE | 2023-08-21 07:49 | P.PN ---
Subjective Progress Note Date: 08/21/23 Principal diagnosis: Coronary artery disease. History of previous myocardial infarction and PCI in 2000, hypertension, hyperlipidemia, previous tobacco dependence. Preoperative n irvin swab positive for colonized MRSA The patient was seen and examined this morning laying in bed on the cardiac stepdown unit in no acute distress. He denies any chest pain/shortness of breath/abdominal pain. Our plan is for off pump CABG Tuesday08/22/[address] Walls. No other new concerns. Objective - Vital Signs Vital signs: Vital Signs Temp 98 F 08/21/23 02:00 Pulse 88 08/21/23 06:00 Resp 20 08/21/23 06:00 BP 114/72 08/21/23 06:00 Pulse Ox 94 L 08/21/23 06:00 FiO2 Intake & Output 08/20/23 08/21/23 08/21/23 18:59 06:59 18:59 Intake Total 358 Balance 358 Intake: Oral 358 Other: Voiding Method Toilet Toilet # Voids 2 - Exam CONSTITUTIONAL: Appears comfortable, cooperative, no acute distress RESPIRATORY: Lungs sounds clear bilaterally. Respirations even, nonlabored. Currently on room air with oxygen saturation 94%. Able to achieve 3000 mL on incentive spirometry. Strong cough. CARDIOVASCULAR: S1, S2 present. Regular rate and rhythm, sinus rhythm on telemetry. Palpable peripheral pulses bilaterally. No edema present. No calf pain or tenderness noted GASTROINTESTINAL: Abdomen soft, nontender, nondistended. Active bowel sounds present 4 quadrants. Tolerating diet. GENITOURINARY: Continues to void INTEGUMENTARY: Skin is warm and dry NEUROLOGIC: Cranial nerves II through XII intact MUSKULOSKELETAL: Able to move all extremities, strength equal bilaterally, gait normal PSYCHIATRIC: Alert and oriented to person place and time, appropriate affect, intact judgment and insight - Allied health notes Allied health notes reviewed: nursing - Labs CBC & Chem 7: 08/20/23 10:03 08/20/23 10:03 Labs: Abnormal Lab Results - Last 24 Hours (Table) 08/20/23 Range/Units 10:03 Glucose 181 H (74-99) mg/dL Assessment and Plan Assessment: Coronary artery disease, complete occlusion of the right coronary artery, 70% ramus stenosis, proximal LAD stenosis 95% Previous myocardial infarction and PCI in 2000 Hypertension Hyperlipidemia, triglycerides 383, cholesterol 242, LDL 129 Previous tobacco dependence, preoperative FEV1 75% of predicted Preoperative nasal swab positive for colonized MRSA Plan: Continue to maximize medical therapy with aspirin, statin, beta cathie Encourage incentive spirometry use Plan is for off pump myocardial revascularization, left internal mammary artery, possible right internal mammary artery/left radial artery/greater saphenous vein harvest, ligation of the left atrial appendage by Dr. Walls 08/22/23 NPO after midnight Increase activity as tolerated Continue nasal mupirocin Medical management of other comorbidities per internal medicine, cardiology More recommendations to follow
[2023-08-21] MEDS: LORATADINE 10 MG TAB PO SCH (09:14)
[2023-08-21] MEDS: MUPIROCIN 2% OINT 22 GM TUBE NASAL SCH ×2 (09:14→20:33)
[2023-08-21] MEDS: HEPARIN SODIUM,PORCINE 5,000 UNIT/ML 1 ML VIAL SQ SCH ×3 (09:14→23:09)
[2023-08-21] MEDS: ASPIRIN 81 MG PO SCH (09:14)
[2023-08-21] MEDS: METOPROLOL TARTRATE 25 MG TAB PO SCH ×2 (09:14→20:33)
--- NOTE | 2023-08-21 11:07 | P.PN ---
Subjective Progress Note Date: 08/21/23 Principal diagnosis: Coronary artery disease. Pulmonary consult dated 08/19/2023. 57-year-old male recently transferred from [facility], to [facility], after having a cardiac catheterization. The patient's catheterization revealed severe triple vessel disease, including very right coronary artery, proximal LAD, and ramus. The patient is scheduled to have bypass surgery on August 22. Currently is on no oxygen. No IV fluids. The patient does smoke cigarettes for 33 years. He does have a history of hypertension hyperlipidemia. Yesterday, we saw her lung function on this patient. His FEV1 was 2.54, suggesting that his lung function was near normal. His predicted FEV1 percent was 75. Based on the FEV1 alone, the patient's at no increased operative risk. I do not have the benefit of the MVV, or the RV/TLC ratio. Current labs include a white count 5.7, he will 15.4, hematocrit 45.2, and a normal platelet count. PTT is 39.4. Sodium 139, potassium 4.1, chlorides 104, CO2 20, BUN 15, and creatinine 0.79. Glucose 163. Progress note dated 08/20/2023. This is a 57-year-old male who was seen in consultation yesterday. The patient is having open heart surgery on August 22. He was found recently to have severe triple-vessel disease. His cardiac catheterization was done at [facility]. We did a preop evaluation on him. The patient's FEV1 was 2.54 L or 75% of predicted. Based on this number, he has very mild COPD, and is at no increased operative risk for general anesthesia. No new labs today. Progress note dated 08/21/2023. 57-year-old male that we saw in preoperative consultation a few days ago. The patient had a catheterization at [facility], which revealed severe triple-vessel disease. The patient is scheduled for bypass grafting tomorrow, August 22. His FEV1, on his bedside spirometry was 2.54 L or 75% of predicted. The patient should do well with general anesthesia based on this number alone. No new labs today. The patient has been stable. Objective - Vital Signs Vital signs: Vital Signs Temp 97.9 F 08/21/23 09:11 Pulse 79 08/21/23 09:11 Resp 16 08/21/23 09:11 BP 142/86 08/21/23 09:11 Pulse Ox 98 08/21/23 09:11 FiO2 Intake & Output 08/20/23 08/21/23 08/21/23 18:59 06:59 18:59 Intake Total 358 Balance 358 Intake: Oral 358 Other: Voiding Method Toilet Toilet Toilet # Voids 2 1 - Exam No acute distress, oriented 3. Room air saturation 98 %. HEENT examination is grossly unremarkable. Mucous membranes are moist. No oral lesions. Neck supple. Full range of motion. No adenopathy thyromegaly or neck vein distention. Cardiovascular examination reveals regular rhythm rate. S1-S2 normal. No S3 or S4. No discernible murmur noted. Heart rate 72 bpm. Lungs reveal clear breath sounds. Breath sounds are equal bilaterally. No adventitious lung sounds including wheezes rhonchi or crackles. Abdomen soft bowel sounds are heard. No masses or tenderness. Extremities are intact. No cyanosis clubbing or edema. Skin is without rash or lesion. Neurologic examination is brief but nonfocal. - Labs CBC & Chem 7: 08/20/23 10:03 08/20/23 10:03 Labs: Abnormal Lab Results - Last 24 Hours (Table) 08/20/23 Range/Units 10:03 Glucose 181 H (74-99) mg/dL Assessment and Plan Assessment: Severe triple-vessel coronary artery disease, with anticipated bypass surgery, 08/22/2023. Previous PCI, 2000. History of hypertension. History of hyperlipidemia. Former nicotine dependence. Mild COPD, with an FEV1 percent at 75% of predicted. Plan: Plan dated 08/19/2023. Based on the patient's FEV1, he's had no increased operative risk. He has very mild COPD. Today, we explained, that as lung and critical care physicians, our goal firstly, is to get the patient liberated from mechanical ventilation. Subsequent to that, we will follow the patient on a daily basis, to make sure he doesn't develop pleural effusion, lobar collapse, atelectasis, or pneumonia. In that regard, we explained to him that incentive spirometry is very important. Additional recommendations and suggestions are forthcoming. Based on lung function, the patient is at no increased operative risk. He has very mild COPD. No additional recommendations are made. Plan dated 08/20/2023. The patient was seen in consultation yesterday. Based on lung function, the patient has very mild COPD, and is at no increased operative risk, based on his FEV1, that was excellent. We encourage him to get used to using the incentive spirometer. The patient will have surgery on August 22Tuesday. Additional recommendations and suggestions are forthcoming. We will continue to follow. Prognosis is guarded. Plan dated 08/21/2023. The patient was seen in consultation 2 days ago. Lung function are very reasonable. He is very mild COPD. Based on his FEV1, the patient should do well with surgery. The patient is to have a CABG, tomorrow. Labs, x-rays, medications are all reviewed. The patient is counseled about the importance of using the incentive spirometer. We will continue to follow. The patient will see my partner tomorrow after surgery. Time with Patient: Less than 30
[2023-08-21 11:37] LABS: Glucose,Whole Blood 100 mg/dL (70-110)
[2023-08-21 11:47] LABS: Color,Urine Yellow
[2023-08-21 11:48] LABS: Appearance,Urine Clear (Clear); Bilirubin,Urine Negative (Negative); Blood,Urine Negative (Negative); Glucose,Urine (UA) Negative (Negative); Ketones,Urine Negative (Negative); PH, Urine 5.5 (5.0-8.0); Protein,Urine Negative (Negative); Urobilinogen,Urine <2.0 mg/dL (<2.0)
[2023-08-21 11:49] LABS: Leukocyte Esterase,Urine Negative (Negative); Nitrite,Urine Negative (Negative)
[2023-08-21 12:38] LABS: Basophils # (A) 0.1 k/uL (0-0.2); Basophils % (A) 1 %; Eosinophils # (A) 0.3 k/uL (0-0.7); Eosinophils % (A) 3 %; HCT 45.5 % (39.0-53.0); HGB 15.8 gm/dL (13.0-17.5); Lymphocytes % (A) 38 %; MCH 30.4 pg (25.0-35.0); MCHC 34.7 g/dL (31.0-37.0); MCV 87.8 fL (80.0-100.0); Mean Platelet Volume 7.5; Monocytes # (A) 0.4 k/uL (0-1.0); Monocytes % (A) 5 %; Neutrophils # (A) 3.9 k/uL (1.3-7.7); Neutrophils % (A) 50 %; Platelet Count 225 k/uL (150-450); RBC 5.18 m/uL (4.30-5.90); RDW 13.3 % (11.5-15.5); WBC 7.9 k/uL (3.8-10.6)
[2023-08-21 12:55] LABS: Partial Thromboplastin Time 24.7 sec (22.0-30.0)
[2023-08-21 12:56] LABS: ALT 132 U/L (4-49); AST 86 U/L (17-59); African American GFR (CKD) >90 (>60 ml/min/1.73 sqM); Albumin 4.4 g/dL (3.5-5.0); Alkaline Phosphatase 68 U/L (38-126); Anion Gap 12 mmol/L; Blood Urea Nitrogen 18 mg/dL (9-20); Calcium 9.4 mg/dL (8.4-10.2); Carbon Dioxide 22 mmol/L (22-30); Chloride 102 mmol/L (98-107); Glucose 115 mg/dL (74-99); Magnesium 1.9 mg/dL (1.6-2.3); Non-African American GFR(CKD) >90 (>60 ml/min/1.73 sqM); Potassium 4.1 mmol/L (3.5-5.1); Sodium 136 mmol/L (137-145); Total Bilirubin 0.7 mg/dL (0.2-1.3); Total Protein 7.5 g/dL (6.3-8.2)
[2023-08-21] MEDS: ALPRAZolam 1 MG TAB PO PRN (15:33)
--- NOTE | 2023-08-21 20:07 | P.PN ---
Subjective Progress Note Date: 08/21/23 Progress note: Patient is doing well from cardiac vessel standpoint. He is hemodynamics stable. His telemetry did not show any new alarams. PHYSICAL EXAM: VITAL SIGNS: Reviewed. GENERAL: Well-developed in no acute distress. HEENT: Head is normocephalic. Pupils are equal, round. Sclerae anicteric. Mucous membranes of the mouth are moist. Neck supple. No JVD or thyromegaly LUNGS: Respirations even and unlabored. Lungs essentially clear to auscultation bilaterally. HEART: Regular rate and rhythm. S1 and S2 heard. ABDOMEN: Soft. Nondistended. Nontender. EXTREMITIES: Normal range of motion. No clubbing or cyanosis. Peripheral pulses intact. No lower extremity edema NEUROLOGIC: Awake and alert. Oriented x 3. ASSESSMENT: Triple vessel coronary artery disease History of PCI in 2000 Hypertension Hyperlipidemia Former nicotine dependence PLAN: Continue current cardiac medications Per CT surgery, okay to discontinue IV heparin as long as patient is not having any chest pain. IV heparin discontinued and patient started on subcu Continue telemetry monitoring CT surgery following. Plan for CABG on 08/22/2023 Further recommendations pending patient's course Objective - Vital Signs Vital signs: Vital Signs Temp 97.8 F 08/21/23 15:24 Pulse 73 08/21/23 15:24 Resp 16 08/21/23 15:24 BP 167/86 08/21/23 15:24 Pulse Ox 95 08/21/23 15:24 FiO2 Intake & Output 08/21/23 08/21/23 08/22/23 06:59 18:59 06:59 Intake Total 360 Balance 360 Intake: Oral 360 Other: Voiding Method Toilet Toilet # Voids 1 - Labs CBC & Chem 7: 08/21/23 11:42 08/21/23 11:42 Labs: Abnormal Lab Results - Last 24 Hours (Table) 08/21/23 08/21/23 Range/Units 11:42 11:46 Sodium 136 L (137-145) mmol/L Glucose 115 H (74-99) mg/dL AST 86 H (17-59) U/L ALT 132 H (4-49) U/L Crossmatch See Detail
[2023-08-21] MEDS: ATORVASTATIN 80 MG TAB PO SCH (20:33)
[2023-08-21] MEDS: LOSARTAN 50 MG TAB PO SCH (20:33)
[2023-08-22] MEDS: MUPIROCIN 2% OINT 22 GM TUBE NASAL SCH ×2 (03:53→20:27)
[2023-08-22] MEDS ORDERED: INSULIN REGULAR 100 UNIT in SODIUM CHLORIDE 0.9% 100 ML IV SCH (05:00)
[2023-08-22] MEDS ORDERED: METOPROLOL TARTRATE 12.5 MG TAB PO ONE (05:00)
[2023-08-22] MEDS ORDERED: HEPARIN SODIUM,PORCINE (1 ML) 5,000 UNIT in SODIUM CHLORIDE 0.9% 500 ML 500 ML IV ONE (05:00)
[2023-08-22] MEDS ORDERED: NOREPINEPHRINE 4 MG in SODIUM CHLORIDE 0.9% 250 ML IV SCH (05:00)
[2023-08-22] MEDS ORDERED: PHENYLEPHRINE 10 MG/ML VIAL IV ONE (05:00)
[2023-08-22] MEDS ORDERED: ALBUMIN HUMAN 25% 50 ML in EMPTY BAG 1 BAG IVPB ONE (05:00)
[2023-08-22] MEDS ORDERED: TRANEXAMIC ACID 2,000 MG in SODIUM CHLORIDE 0.9% 80 ML IV ONE ×4 (05:00)
[2023-08-22] MEDS ORDERED: CALCIUM CHLORIDE 100 MG/ML 10 ML SYRINGE IVP ONE (05:00)
[2023-08-22] MEDS ORDERED: CHLORHEXIDINE GLUCONATE 15 ML CUP MUCOUS MEM ONE (05:00)
[2023-08-22] MEDS ORDERED: ALBUMIN HUMAN 5% 500 ML in EMPTY BAG 1 BAG IVPB ONE ×6 (05:00)
[2023-08-22] MEDS ORDERED: ASPIRIN 325 MG TAB PO ONE (05:00)
[2023-08-22] MEDS ORDERED: LACTATED RINGERS 1,000 ML IV SCH (05:00)
[2023-08-22] MEDS ORDERED: DILTIAZEM 125 MG in SODIUM CHLORIDE 0.9% 100 ML IV SCH (05:00)
[2023-08-22] MEDS ORDERED: CLEVIDIPINE BUTYRATE 25 MG in EMPTY BAG 1 BAG IV SCH ×2 (05:00→12:45)
[2023-08-22] MEDS ORDERED: MAGNESIUM SULFATE 16.24 MEQ in EMPTY SYRINGE 1 SYR IV ONE (05:00)
[2023-08-22] MEDS ORDERED: HEPARIN SODIUM 1,000 UN/ML (10ML VL) IV ONE (05:00)
[2023-08-22] MEDS ORDERED: CARDIOPLEGIC SOLN (K+ 16 MEQ/L 1,000 ML with SOD BICARB SYR 8.4% (1 MEQ/ML) 20 ML, LIDO... PERFUSION NR ×3 (05:00)
[2023-08-22] MEDS ORDERED: PROTAMINE SULFATE 250 MG in EMPTY BAG 1 BAG IV ONE (05:00)
[2023-08-22] MEDS ORDERED: PHENYLEPHRINE 40 MG in SODIUM CHLORIDE 0.9% 250 ML IV ONE (05:00)
[2023-08-22] MEDS ORDERED: MANNITOL 25% 12.5 GM/50 ML VIAL IV ONE ×2 (05:00)
[2023-08-22] MEDS ORDERED: ceFAZolin 1,000 MG in SODIUM CHLORIDE 0.9% IRRIGATIO 1,000 ML IRRIGATION ONE (05:00)
[2023-08-22] MEDS ORDERED: NITROGLYCERIN-D5W PMX 25 MG/250 ML BTL IV ONE (05:00)
[2023-08-22] MEDS ORDERED: NITROGLYCERIN-D5W PMX 50 MG in DEXTROSE/WATER 1 250ML.BAG IV SCH ×2 (05:00→12:45)
[2023-08-22] MEDS ORDERED: SODIUM BICARB 8.4% 50 ML SYR (1 MEQ/ML) IV ONE (05:00)
[2023-08-22] MEDS ORDERED: PROTAMINE SULFATE 10 MG/ML 25 ML VIAL IV ONE ×2 (05:00→07:15)
[2023-08-22] MEDS ORDERED: PAPAVERINE 360 MG in SODIUM CHLORIDE 0.9% 90 ML IV ONE (05:00)
[2023-08-22 05:02] LABS: Glucose,Whole Blood 142 mg/dL (70-110)
[2023-08-22] MEDS ORDERED: PHENYLEPHRINE 10 MG/ML VIAL ONE (07:15)
[2023-08-22] MEDS ORDERED: INSULIN REGULAR 100 UNIT/ML VIAL (IV) ONE (07:15)
[2023-08-22] MEDS ORDERED: ePHEDrine 50 MG/ML 1 ML VIAL ONE (07:15)
[2023-08-22] MEDS ORDERED: WATER FOR INJECTION, STERILE 10 ML VIAL IV ONE (07:15)
[2023-08-22] MEDS ORDERED: PROPOFOL 10 MG/ML 20 ML VIAL IV ONE (07:15)
[2023-08-22] MEDS ORDERED: ALBUMIN HUMAN 5% (25gm) 500 ML VIAL IVPB ONE (07:15)
[2023-08-22] MEDS ORDERED: HEPARIN SODIUM,PORCINE 5,000 UNIT/ML 1 ML VIAL ONE (07:15)
[2023-08-22] MEDS ORDERED: fentaNYL (PF) 50 MCG/ML 50 ML VIAL ONE (07:15)
[2023-08-22] MEDS ORDERED: VECURONIUM 10 MG VIAL IV ONE (07:15)
[2023-08-22] MEDS ORDERED: MIDAZOLAM HCL 10 MG/10 ML VIAL ONE (07:15)
[2023-08-22 08:41] LABS: ABG Base Excess -7.8 mmol/L; ABG Glucose Whole Blood 69 mg/dL (75-99); ABG HCO3 16 mmol/L (21-25); ABG Hematocrit 31 % (34.0-46.0); ABG Oxygen Saturation 99.8 % (94-97); ABG PCO2 26 mmHg (35-45); ABG PH 7.39 (7.35-7.45); ABG PO2 127 mmHg (83-108); ABG Sodium Whole Blood 147 mmol/L (135-146); ABG TCO2 17 mmol/L (19-24)
[2023-08-22 10:20] LABS: ABG Base Excess 0.4 mmol/L; ABG Glucose Whole Blood 128 mg/dL (75-99); ABG HCO3 25 mmol/L (21-25); ABG Hematocrit 41 % (34.0-46.0); ABG Ionized Calcium 4.6 mg/dL (4.5-5.3); ABG Oxygen Saturation 99.6 % (94-97); ABG PCO2 38 mmHg (35-45); ABG PH 7.43 (7.35-7.45); ABG PO2 121 mmHg (83-108); ABG Sodium Whole Blood 139 mmol/L (135-146); ABG TCO2 26 mmol/L (19-24)
[2023-08-22 10:44] LABS: ABG Base Excess -0.8 mmol/L; ABG Glucose Whole Blood 115 mg/dL (75-99); ABG HCO3 23 mmol/L (21-25); ABG Hematocrit 37 % (34.0-46.0); ABG Ionized Calcium 4.4 mg/dL (4.5-5.3); ABG PCO2 35 mmHg (35-45); ABG PH 7.43 (7.35-7.45); ABG PO2 177 mmHg (83-108); ABG Potassium Whole Blood 3.6 mmol/L (3.4-4.5); ABG Sodium Whole Blood 139 mmol/L (135-146); ABG TCO2 24 mmol/L (19-24)
[2023-08-22 11:16] LABS: ABG Base Excess -0.6 mmol/L; ABG Glucose Whole Blood 107 mg/dL (75-99); ABG HCO3 24 mmol/L (21-25); ABG Hematocrit 35 % (34.0-46.0); ABG Ionized Calcium 4.4 mg/dL (4.5-5.3); ABG PCO2 36 mmHg (35-45); ABG PH 7.42 (7.35-7.45); ABG PO2 197 mmHg (83-108); ABG Potassium Whole Blood 3.8 mmol/L (3.4-4.5); ABG Sodium Whole Blood 139 mmol/L (135-146); ABG TCO2 25 mmol/L (19-24)
[2023-08-22 11:36] LABS: ABG Base Excess -0.6 mmol/L; ABG Glucose Whole Blood 110 mg/dL (75-99); ABG HCO3 24 mmol/L (21-25); ABG Hematocrit 34 % (34.0-46.0); ABG Ionized Calcium 4.4 mg/dL (4.5-5.3); ABG Oxygen Saturation 99.8 % (94-97); ABG PCO2 36 mmHg (35-45); ABG PH 7.43 (7.35-7.45); ABG PO2 146 mmHg (83-108); ABG Potassium Whole Blood 3.8 mmol/L (3.4-4.5); ABG Sodium Whole Blood 139 mmol/L (135-146); ABG TCO2 25 mmol/L (19-24)
[2023-08-22 11:55] LABS: ABG Potassium Whole Blood 2.4 mmol/L (3.4-4.5)
[2023-08-22 11:56] LABS: ABG Ionized Calcium 3.3 mg/dL (4.5-5.3); ABG Lactic Acid Whole Blood 0.7 mmol/L (0.5-1.6)
[2023-08-22 11:59] LABS: ABG Lactic Acid Whole Blood 1.9 mmol/L (0.5-1.6)
[2023-08-22 11:59] LABS: ABG Lactic Acid Whole Blood 1.9 mmol/L (0.5-1.6)
[2023-08-22 12:00] LABS: ABG Lactic Acid Whole Blood 2.7 mmol/L (0.5-1.6)
[2023-08-22 12:00] LABS: ABG Lactic Acid Whole Blood 2.4 mmol/L (0.5-1.6)
[2023-08-22] MEDS ORDERED: hydrALAZINE HCL 20 MG/ML 1 ML VIAL IVP PRN (12:29)
[2023-08-22] MEDS ORDERED: DEXMEDETOMIDINE/0.9% NACL(PMX) 400 MCG in EMPTY BAG 1 BAG IV SCH (12:29)
[2023-08-22] MEDS ORDERED: AMIODARONE 450 MG in DEXTROSE 5% IN WATER 250 ML IV PRN ×2 (12:29)
[2023-08-22] MEDS ORDERED: METOCLOPRAMIDE 5 MG/ML 2 ML VIAL IVP PRN (12:29)
[2023-08-22] MEDS ORDERED: ONDANSETRON 4 MG/2 ML VIAL IVP PRN (12:29)
[2023-08-22] MEDS ORDERED: AMIODARONE 360 MG in DEXTROSE 5% IN WATER 200 ML IV PRN ×2 (12:29)
[2023-08-22] MEDS ORDERED: Magnesium Replacement Protocol 1 EACH MISC MISCELLANE PRN ×2 (12:29→16:01)
[2023-08-22] MEDS ORDERED: IPRATROPIUM-ALBUTEROL 3 ML NEB INHALATION PRN (12:29)
[2023-08-22] MEDS ORDERED: DEXTROSE 5% IN WATER 100 ML with AMIODARONE 150 MG IV PRN (12:29)
[2023-08-22] MEDS ORDERED: BENZOCAINE/MENTHOL LOZENG 1 EACH LOZENGE MUCOUS MEM PRN (12:29)
[2023-08-22] MEDS ORDERED: Potassium Replacement Protocol 1 EACH MISC MISCELLANE PRN ×2 (12:29→15:57)
[2023-08-22] MEDS ORDERED: DEXTROSE 50% SYRINGE 50 ML IVP PRN ×2 (12:29)
[2023-08-22 12:55] LABS: Glucose,Whole Blood 109 mg/dL (70-110)
[2023-08-22] MEDS: DILTIAZEM 125 MG in SODIUM CHLORIDE 0.9% 100 ML IV SCH (13:00)
[2023-08-22] MEDS: LACTATED RINGERS 1,000 ML IV SCH (13:00)
--- NOTE | 2023-08-22 13:08 | P.OP ---
Date of Procedure: 08/22/23 Preoperative Diagnosis: Coronary artery disease Postoperative Diagnosis: Same Procedure(s) Performed: Off-pump coronary artery bypass grafting [address] to LAD, sequential SARAH graft left radial artery to intermediate and obtuse marginal coronary arteries. Endovascular harvest left radial artery. Endovascular harvest right greater saphenous vein from ankle to groin. Ligation of left atrial appendage with a 40 mm AtriCure clip. SARAH by anesthesia. Implants: 40 mm AtriCure clamp Anesthesia: GETCarmen Surgeon: Jesse Walls Marketing Operations Manager #1: Bryson Pink Estimated Blood Loss (ml): 400 IV fluids (ml): 2,500 Urine output (ml): 500 Pathology: none sent Condition: stable Disposition: ICU Indications for Procedure: 57-year-old male who presents with positive stress test done at the [facility]. He has known history of coronary artery disease with stenting of the right and left anterior descending coronary arteries in 2000. He states he is recently felt nauseated and that this is similar to the symptoms he had back in 2000 at the time of his myocardial infarction. Despite this, he had been self treating with antacids. He is followed at the [facility] and recent stress test was positive. He decided to present to the emergency room and [facility] for further workup. He underwent cardiac catheterization late last week and was found to have severe three-vessel coronary artery disease. Left ventricular function was well preserved and valvular function was normal by echocardiography. Patient was transferred to [facility] and urgent coronary bypass grafting was requested by Dr. Gómez. Surgery was scheduled at the next available time. Operative Findings: Left anterior descending was diffusely diseased but generally soft vessel with 2 mm lumen. Intermediate coronary artery was diseased proximally and then ran intramyocardially. Was dissected out in the intramyocardial position and found to be a 2 mm soft vessel. Obtuse marginal coronary artery was a 1.75 mm good vessel. Right coronary artery was heavily calcified and not graftable. PDA was small and diffusely diseased with heavy calcification not graftable. Distal branches of the right coronary artery was extremely small. Greater saphenous vein was initially harvested from the knee to the groin but was completely occluded in its midportion and did not follow-up. Second piece was then harvested from the down to the ankle. Left radial artery was a good vessel and was harvested with endovascular harvest technique. LANE was a good vessel. Left atrial appendage showed no evidence of clot on SARAH. It was relatively large-sized appendage and a 40 mm AtriCure clip was used based on this. Description of Procedure: A she was brought to the operating room and placed supine on the operating table. Gen. anesthesia was induced. The anterior torso and bilateral lower extremities were sterilely prepped and draped. Strongly was also sterilely prepped and draped. Endovascular vein harvest was performed. After harvesting the 5 vein on the right side, we noted that it would not blow up in its midportion and was not usable. Second piece was taken from the lower leg on the right using endovascular harvest technique and was of good quality. Simultaneously the left radial artery was harvested. Was of relatively small but good conduit. It easily accepted a 2.5 mm probe. It was prepared on the back table. Simultaneous sternotomy was performed a left hemisternum was retracted upwards. The left internal mammary artery was harvested on a vascularized pedicle left intact on its origin from the subclavian. It was a good conduit. Left pleural space was drained with a 32-Ecu[place] chest tube. Standard sternal retractor was placed in the pericardium was opened in the midline and the heart exposed with pericardial sutures. Following completion of the radial artery harvest and preparation, patient was systemically heparinized and the targets were explored. The LANE was appropriately prepared for distal to the LAD. Bulldog clamp was applied proximally and it was opened longitudinally as it entered the pericardial space. Proximal anastomosis of the left radial artery was now taken off the internal mammary artery with a side to end anastomosis of running 8-0 Prolene suture. On completion of the anastomosis, inflow was open to both conduits and good flow was noted in both. There were then gently occluded with bulldog clamps. The LAD stabilized in its midportion and opened. There was diffuse disease present in the LAD but had a good lumen and easily accepted 2 mm flow through. End to side anastomosis between the LANE and LAD was performed with running 8-0 Prolene suture. On completion anastomosis flow through was removed 50 probe the proximal distal portion of the anastomosis. Suture was tied with good resultant hemostasis. Inflow was open. The JUANI pedicle was tacked surrounding epicardium with 6-0 silk suture. Next the ramus intermedius was exposed. It was calcified and diseased proximally. Dissection was carried along it as it disappeared intramyocardially and a soft segment was identified in the intramyocardial segment. Was opened longitudinally and blood flow control with a 2 mm flow through. [id number] anastomosis between the radial artery and the ramus intermedius was performed with running 7-0 Prolene suture. On completion of the anastomosis the flow through was removed effectively probing the proximal and distal portion of the anastomosis. Suture was tied with good result and hemostasis. Good bleeding was noted out the end of the radial artery which augmented with moving the bulldog clamp from proximal to distal. The obtuse marginal was now exposed and grafted fairly proximally. It was a 1.5-1.75 mm vessel. Was opened and blood flow control with a 1.5 mm flow through. End to side anastomosis between the radial artery and the obtuse marginal coronary artery were performed with running 7-0 Prolene suture. On completion anastomosis the flow through was removed effectively probing the proximal distal portion anastomosis. Suture was tied with good result and hemostasis. Inflow was open. The graft was noted to lay well without any kinking. Good hemostasis was noted at all anastomoses. Heart was lowered into anatomic position. Heparin was reversed with protamine. Good surgical hemostasis was obtained throughout. Left pleural space was drained with a 32-Ecuadorean chest tube. Mediastinum was drained with a 36-[place]cuadorean chest tube. Chest was irrigated with antibiotic solution. Pericardium was tacked closed with 0 silk sutures. Sternum was closed with 8 sternal wires. Fascia was closed with 0 Ethibond. Subcutaneous and subcuticular layers in the leg chest normal closed with layers of Vicryl suture. Skin glue and dry sterile dressings were applied. Patient was transferred to ICU in stable condition on no inotropic support having received no blood transfusions.
[2023-08-22] MEDS: ALBUMIN HUMAN 5% 250 ML in EMPTY BAG 1 BAG IVPB PRN ×2 (13:15→14:15)
[2023-08-22 13:16] LABS: Ionized Calcium 4.4 mg/dL (4.5-5.3)
[2023-08-22 13:21] LABS: ABG Base Excess -1.7 mmol/L; ABG HCO3 24 mmol/L (21-25); ABG Oxygen Saturation 94.6 % (94-97); ABG PCO2 46 mmHg (35-45); ABG PH 7.33 (7.35-7.45); ABG PO2 73 mmHg (83-108); ABG TCO2 26 mmol/L (19-24)
[2023-08-22 13:22] LABS: Allen Test Performed? no
--- NOTE | 2023-08-22 13:25 | P.ANPRN ---
Procedure Note - Anesthesia - SARAH Intraop Pre Bypass SARAH Intraop - Anesthesia Indication: CABG Date of Procedure: 08/22/23 Pre-operative Diagnosis: Coronary artery disease Post-operative Diagnosis: same Surgeon: Jesse Walls Ejection Fraction: Normal Regional Wall Motion Abnormalities: None Left Ventricle Hypertrophy: No R. Ventricle Function: Normal Anatomy: Trileaflet Aortic Stenosis: None Aortic Regurgitation: None Mitral Stenosis: None Mitral Regurgitation: Trace Tricuspid Stenosis: None Tricuspid Regurgitation: None Pulmonic Stenosis: None Pulmonic Regurgitation: None R. Atrial Dilation: No R. Atrial PFO: No L. Atrial Dilation: No Aortic Dissection: No Aortic Calcification: None Plural Effusion: None
--- NOTE | 2023-08-22 13:26 | XR ---
EXAMINATION TYPE: XR chest 1V portable DATE OF EXAM: 08/22/2023 COMPARISON: 1212 oh 2002 HISTORY: Postop cardiac surgery TECHNIQUE: Single frontal view of the chest is obtained. FINDINGS: ET tube 2.7 cm above [place]. Mediastinal drain, chest tube, [place]-Phuc catheter and NG tube are noted. Median sternotomy changes noted. Bilateral infiltrate with small left effusion and interstitial pattern. Suspect mild venous congestio n. No pneumothorax. Hypertrophic degenerative changes of spine. Underlying COPD. IMPRESSION: 1. Postoperative change with bilateral consolidation small effusion correlate for mild venous congest ion and postoperative atelectasis favored over pneumonia
--- NOTE | 2023-08-22 13:26 | P.ANPRN ---
Procedure Note - Anesthesia - SARAH Intraop Post Bypass SARAH Intraop Post Bypass Procedure Performed: CABG Left Ventricle: wnl Ejection Fraction: Normal Regional Wall Motion Abnormalities: None Right Ventricle: wnl R. Ventricle Function: Normal Aortic Valve: Unchanged Mitral Valve: Unchanged Tricuspid: Unchanged Pulmonic: Unchanged Aortic Dissection: No
[2023-08-22 13:30] LABS: INR 1.3 (<1.2); Partial Thromboplastin Time 28.5 sec (22.0-30.0); Prothrombin Time 13.5 sec (10.0-12.5)
[2023-08-22 13:38] LABS: ALT 63 U/L (4-49); AST 42 U/L (17-59); African American GFR (CKD) >90 (>60 ml/min/1.73 sqM); Albumin 3.3 g/dL (3.5-5.0); Alkaline Phosphatase 37 U/L (38-126); Anion Gap 10 mmol/L; Blood Urea Nitrogen 14 mg/dL (9-20); Calcium 7.6 mg/dL (8.4-10.2); Carbon Dioxide 21 mmol/L (22-30); Chloride 105 mmol/L (98-107); Glucose 99 mg/dL (74-99); Magnesium 1.8 mg/dL (1.6-2.3); Non-African American GFR(CKD) >90 (>60 ml/min/1.73 sqM); Potassium 3.6 mmol/L (3.5-5.1); Sodium 136 mmol/L (137-145); Total Bilirubin 0.5 mg/dL (0.2-1.3); Total Protein 5.3 g/dL (6.3-8.2)
[2023-08-22 14:15] LABS: Glucose,Whole Blood 137 mg/dL (70-110)
--- NOTE | 2023-08-22 14:21 | P.PN ---
Subjective Progress Note Date: 08/22/23 On 08/22/2023, seeing the patient after he arrived to the intensive care unit following his coronary artery bypass surgery. The patient underwent an off pump 3 vessel bypass surgery. He underwent LANE to LAD and left radial to intermediate and OM. The patient is currently on propofol which is running at 30 mcg/kg/m. His 1 cm a mechanical ventilator. He is on assist control mode at a rate of 12, tidal volume of 550, FiO2 was dropped down to 60% and PEEP of 5. The blood gas showed a pH of 7.43 with a pCO2 of 46 and pO2 of 73 and this was the most recent blood gases. The chest x-ray showed adequate expansion of both lungs. The patient has a left pleural and a mediastinal chest tube. No evidence of any pneumothorax. The [place]-Phuc is in a good location. His cardiac output is at 5.5 with an index of 2.7. The patient was given IV albumin immediately after he arrived to the ICU. The patient is currently on nitroglycerin drip at 5 mcg/m and Cardizem drip at 5 mg an hour. The output from the chest tubes are minimal at this point in time and the patient has no evidence of any air leak. Patient is on no pressors., Comfortable. Cardiac rhythm is sinus. No other significant events . Urine output is adequate. The labs from today. Showed a sodium level of 136, BUN is at 40 with a creatinine of 0.63 and a serum bicarb is at 21. Objective - Vital Signs Vital signs: Vital Signs Temp 35.8 F L 08/22/23 14:00 Pulse 75 08/22/23 14:00 Resp 20 08/22/23 14:00 BP 90/56 08/22/23 13:15 Pulse Ox 94 L 08/22/23 14:00 FiO2 94 08/22/23 14:00 Intake & Output 08/21/23 08/22/23 08/22/23 18:59 06:59 18:59 Intake Total 360 100 109.5 Output Total 850 Balance 360 100 -740.5 Weight 89.1 kg Intake: IV 100 109.5 Diltiazem 125 mg In 5 Sodium Chloride 0.9% 100 ml @ 5 MG/HR 5 mls/hr IV .Q24H [facility] Rx#:[id number] Lactated Ringers 1,000 ml 50 @ 50 mls/hr IV .Q20H [facility] Rx#:[id number] Nitroglycerin-D5w Pmx 50 1.5 mg In Dextrose/Water 1 250ml.bag @ 5 MCG/MIN 1.5 mls/hr IV .Q24H [facility] Rx#: [id number] Oral 360 0 Output: Chest Tube Drainage 20 Chest Tube Left Pleural/ 20 Mediastinal Urine 430 Estimated Blood Loss 400 Other: Voiding Method Toilet Toilet # Voids 1 ABP, PAP, CO, CI - Last Documented Arterial Blood Pressure 109/52 Pulmonary Artery Pressure 34/22 Cardiac Output 5.5 Cardiac Index 2.7 - Exam Gen. appearance, calm and comfortable, sedated, not in acute distress and the patient has an orotracheal breadstick to both in place. Head exam was generally normal. There was no scleral icterus or corneal arcus. Mucous membranes were moist. Neck was supple and without jugular venous distension, thyromegaly, or carotid bruits. Carotids were easily palpable bilaterally. There was no adenopathy. The patient has a right IJ [place]-Phuc catheter. Lungs were clear to auscultation and percussion, and with normal diaphragmatic excursion. No wheezes or rales were noted. Cardiac exam revealed the PMI to be normally situated and sized. The rhythm was regular and no extrasystoles were noted during several minutes of auscultation. The first and second heart sounds were normal and physiologic splitting of the second heart sound was noted. There were no murmurs, rubs, clicks, or gallops. Abdominal exam revealed normal bowel sounds. The abdomen was soft, non-tender, and without masses, organomegaly, or appreciable enlargement of the abdominal aorta. Examination of the extremities revealed easily palpable radial, femoral and pedal pulses. There was no cyanosis, clubbing or edema. Examination of the skin revealed no evidence of significant rashes, suspicious appearing nevi or other concerning lesions. Neurologically, sedated - Labs CBC & Chem 7: 08/21/23 11:42 08/22/23 12:14 Labs: Abnormal Lab Results - Last 24 Hours (Table) 08/21/23 08/22/23 08/22/23 Range/Units 11:46 05:01 08:43 PT (10.0-12.5) sec INR (<1.2) ABG pH (7.35-7.45) ABG pCO2 26 L (35-45) mmHg ABG pO2 127 H (83-108) mmHg ABG HCO3 16 L (21-25) mmol/L ABG Total CO2 17 L (19-24) mmol/L ABG O2 Saturation 99.8 H (94-97) % ABG Hematocrit 31 L (34.0-46.0) % ABG Sodium 147 H (135-146) mmol/L ABG Potassium 2.4 L* (3.4-4.5) mmol/L ABG Ionized Calcium 3.3 L* (4.5-5.3) mg/dL ABG Glucose 69 L (75-99) mg/dL ABG Lactic Acid (0.5-1.6) mmol/L Hemoglobin 10.0 L (13.0-17.5) gm/dL Sodium (137-145) mmol/L Carbon Dioxide (22-30) mmol/L Creatinine (0.66-1.25) mg/dL POC Glucose (mg/dL) 142 H (70-110) mg/dL Calcium (8.4-10.2) mg/dL Ionized Calcium Uriel (4.5-5.3) mg/dL ALT (4-49) U/L Alkaline Phosphatase (38-126) U/L Total Protein (6.3-8.2) g/dL Albumin (3.5-5.0) g/dL Arterial Blood Potassium 2.4 L* (3.4-4.5) mmol/L Arterial Blood Glucose 69 L (75-99) mg/dL Crossmatch See Detail 08/22/23 08/22/23 08/22/23 Range/Units 10:20 10:43 11:16 PT (10.0-12.5) sec INR (<1.2) ABG pH (7.35-7.45) ABG pCO2 (35-45) mmHg ABG pO2 121 H 177 H 197 H (83-108) mmHg ABG HCO3 (21-25) mmol/L ABG Total CO2 26 H 25 H (19-24) mmol/L ABG O2 Saturation 99.6 H 100.0 H 100.0 H (94-97) % ABG Hematocrit (34.0-46.0) % ABG Sodium (135-146) mmol/L ABG Potassium (3.4-4.5) mmol/L ABG Ionized Calcium 4.4 L 4.4 L (4.5-5.3) mg/dL ABG Glucose 128 H 115 H 107 H (75-99) mg/dL ABG Lactic Acid 1.9 H 1.9 H 2.4 H* (0.5-1.6) mmol/L Hemoglobin 12.0 L 11.4 L (13.0-17.5) gm/dL Sodium (137-145) mmol/L Carbon Dioxide (22-30) mmol/L Creatinine (0.66-1.25) mg/dL POC Glucose (mg/dL) (70-110) mg/dL Calcium (8.4-10.2) mg/dL Ionized Calcium Uriel (4.5-5.3) mg/dL ALT (4-49) U/L Alkaline Phosphatase (38-126) U/L Total Protein (6.3-8.2) g/dL Albumin (3.5-5.0) g/dL Arterial Blood Potassium (3.4-4.5) mmol/L Arterial Blood Glucose 128 H 115 H 107 H (75-99) mg/dL Crossmatch 08/22/23 08/22/23 08/22/23 Range/Units 11:35 12:14 12:14 PT 13.5 H (10.0-12.5) sec INR 1.3 H (<1.2) ABG pH (7.35-7.45) ABG pCO2 (35-45) mmHg ABG pO2 146 H (83-108) mmHg ABG HCO3 (21-25) mmol/L ABG Total CO2 25 H (19-24) mmol/L ABG O2 Saturation 99.8 H (94-97) % ABG Hematocrit (34.0-46.0) % ABG Sodium (135-146) mmol/L ABG Potassium (3.4-4.5) mmol/L ABG Ionized Calcium 4.4 L (4.5-5.3) mg/dL ABG Glucose 110 H (75-99) mg/dL ABG Lactic Acid 2.7 H* (0.5-1.6) mmol/L Hemoglobin 11.1 L (13.0-17.5) gm/dL Sodium 136 L (137-145) mmol/L Carbon Dioxide 21 L (22-30) mmol/L Creatinine 0.63 L (0.66-1.25) mg/dL POC Glucose (mg/dL) (70-110) mg/dL Calcium 7.6 L (8.4-10.2) mg/dL Ionized Calcium Uriel 4.4 L (4.5-5.3) mg/dL ALT 63 H (4-49) U/L Alkaline Phosphatase 37 L (38-126) U/L Total Protein 5.3 L (6.3-8.2) g/dL Albumin 3.3 L (3.5-5.0) g/dL Arterial Blood Potassium (3.4-4.5) mmol/L Arterial Blood Glucose 110 H (75-99) mg/dL Crossmatch 08/22/23 08/22/23 Range/Units 13:19 14:14 PT (10.0-12.5) sec INR (<1.2) ABG pH 7.33 L (7.35-7.45) ABG pCO2 46 H (35-45) mmHg ABG pO2 73 L (83-108) mmHg ABG HCO3 (21-25) mmol/L ABG Total CO2 26 H (19-24) mmol/L ABG O2 Saturation (94-97) % ABG Hematocrit (34.0-46.0) % ABG Sodium (135-146) mmol/L ABG Potassium (3.4-4.5) mmol/L ABG Ionized Calcium (4.5-5.3) mg/dL ABG Glucose (75-99) mg/dL ABG Lactic Acid (0.5-1.6) mmol/L Hemoglobin (13.0-17.5) gm/dL Sodium (137-145) mmol/L Carbon Dioxide (22-30) mmol/L Creatinine (0.66-1.25) mg/dL POC Glucose (mg/dL) 137 H (70-110) mg/dL Calcium (8.4-10.2) mg/dL Ionized Calcium Uriel (4.5-5.3) mg/dL ALT (4-49) U/L Alkaline Phosphatase (38-126) U/L Total Protein (6.3-8.2) g/dL Albumin (3.5-5.0) g/dL Arterial Blood Potassium (3.4-4.5) mmol/L Arterial Blood Glucose (75-99) mg/dL Crossmatch Assessment and Plan Plan: Severe triple-vessel coronary artery disease, with anticipated bypass surgery, 08/22/2023. Patient underwent three-vessel bypass surgery, off pump and the patient is currently postop day #0. Doing well. Hemodynamically stable. Currently on a combination of Cardizem drip and nitroglycerin drip. The patient is hemodynamically stable. Cardiac output is stable. Postthoracotomy, currently intubated on a mechanical ventilator. Chest x-ray in the blood gas were noted. Minimal output from the chest tube without evidence of any air leak. Previous PCI, 2000. History of hypertension. History of hyperlipidemia. Former nicotine dependence. Mild COPD, with an FEV1 percent at 75% of predicted. Plan: The necessary ventilator changes were done. Respiratory rate of 20. Gradually wean down the FiO2 to maintain saturation above 90% Monitor the output from the chest tubes Monitor the air leak Continue the Cardizem drip Continue nitroglycerin drip Continue propofol and gradually weaned off as tolerated We'll continue to follow This evaluation was done in more than 30 minutes. This is a critical care evaluation. Time with Patient: Greater than 30
[2023-08-22] MEDS: INSULIN REGULAR 100 UNIT in SODIUM CHLORIDE 0.9% 100 ML IV SCH (14:32)
[2023-08-22 14:53] LABS: Glucose,Whole Blood 152 mg/dL (70-110)
[2023-08-22 15:20] LABS: Basophils % (A) 0 %; Eosinophils # (A) 0.1 k/uL (0-0.7); Eosinophils % (A) 1 %; HCT 33.4 % (39.0-53.0); Lymphocytes # (A) 1.7 k/uL (1.0-4.8); Lymphocytes % (A) 16 %; MCH 30.8 pg (25.0-35.0); MCHC 34.9 g/dL (31.0-37.0); MCV 88.1 fL (80.0-100.0); Mean Platelet Volume 7.2; Monocytes # (A) 0.4 k/uL (0-1.0); Monocytes % (A) 3 %; Neutrophils # (A) 7.9 k/uL (1.3-7.7); Neutrophils % (A) 77 %; Platelet Count 172 k/uL (150-450); RBC 3.79 m/uL (4.30-5.90); RDW 13.2 % (11.5-15.5); WBC 10.2 k/uL (3.8-10.6)
[2023-08-22 15:26] LABS: HGB 11.7 gm/dL (13.0-17.5)
[2023-08-22] MEDS ORDERED: IPRATROPIUM-ALBUTEROL 3 ML NEB INHALATION SCH (16:00)
[2023-08-22 16:05] LABS: Glucose,Whole Blood 168 mg/dL (70-110)
[2023-08-22] MEDS: HEPARIN SODIUM,PORCINE 5,000 UNIT/ML 1 ML VIAL SQ SCH ×2 (16:12→23:06)
[2023-08-22] MEDS: POTASSIUM CHLORIDE 10 MEQ in WATER FOR INJECTION 1 100ML.BAG IVPB SCH ×2 (16:15→17:21)
[2023-08-22] MEDS ORDERED: MAGNESIUM SULFATE-D5W PMX 1 GM in DEXTROSE/WATER 1 100ML.BAG IVPB ONE (16:30)
[2023-08-22] MEDS: ACETAMINOPHEN IV (For NPO) 1,000 MG in EMPTY BAG 1 BAG IVPB SCH ×2 (16:49→23:59)
[2023-08-22] MEDS ORDERED: fentaNYL (PF) 50 MCG/ML 2 ML AMP IVP STA (17:01)
[2023-08-22 17:04] LABS: Glucose,Whole Blood 199 mg/dL (70-110)
[2023-08-22 17:57] LABS: Glucose,Whole Blood 186 mg/dL (70-110)
[2023-08-22 18:13] LABS: Basophils % (A) 0 %; Eosinophils % (A) 0 %; HCT 34.4 % (39.0-53.0); Lymphocytes # (A) 0.7 k/uL (1.0-4.8); Lymphocytes % (A) 7 %; MCH 30.5 pg (25.0-35.0); MCHC 34.7 g/dL (31.0-37.0); MCV 87.9 fL (80.0-100.0); Mean Platelet Volume 7.8; Monocytes # (A) 0.4 k/uL (0-1.0); Monocytes % (A) 4 %; Neutrophils # (A) 9.7 k/uL (1.3-7.7); Neutrophils % (A) 89 %; Platelet Count 175 k/uL (150-450); RBC 3.92 m/uL (4.30-5.90); RDW 13.3 % (11.5-15.5); WBC 10.9 k/uL (3.8-10.6)
[2023-08-22 19:30] LABS: Glucose,Whole Blood 148 mg/dL (70-110)
--- NOTE | 2023-08-22 19:57 | XR ---
EXAMINATION TYPE: XR chest 1V portable DATE OF EXAM: 08/22/2023 7:21 PM CLINICAL INDICATION:Male, 57 years old with history of increased o2 demands and chest pain.; [facility] COMPARISON: Chest radiographs from TECHNIQUE: XR chest 1V portable Frontal view of the chest. FINDINGS: Lungs/Pleura: There is no evidence of pleural effusion, focal consolidation, or pneumothorax. Pulmonary vascularity: Unremarkable. Heart/mediastinum: Cardiomediastinal silhouette is unremarkable. Left atrial appendage occlusion jackie ce is present. Musculoskeletal: No acute osseous pathology. Midline sternotomy wires are noted. Other findings: None Lines/Tubes: There is a [place]-Phuc catheter with tip projecting over the spine. Drainage tubes with tips projecting over the mediastinum. IMPRESSION: Similar exam with stable support tubes.
[2023-08-22 20:02] LABS: Glucose,Whole Blood 149 mg/dL (70-110)
[2023-08-22] MEDS: IPRATROPIUM-ALBUTEROL 3 ML NEB INHALATION SCH (20:05)
[2023-08-22] MEDS: SENNOSIDES-DOCUSATE SODIUM 1 EACH TAB PO SCH (20:27)
[2023-08-22 20:59] LABS: Glucose,Whole Blood 145 mg/dL (70-110)
[2023-08-22 21:04] LABS: Basophils % (A) 0 %; Eosinophils % (A) 0 %; HCT 35.3 % (39.0-53.0); HGB 12.2 gm/dL (13.0-17.5); Lymphocytes # (A) 0.7 k/uL (1.0-4.8); Lymphocytes % (A) 7 %; MCH 30.2 pg (25.0-35.0); MCHC 34.7 g/dL (31.0-37.0); MCV 87.2 fL (80.0-100.0); Mean Platelet Volume 8.4; Monocytes # (A) 0.4 k/uL (0-1.0); Monocytes % (A) 4 %; Neutrophils # (A) 9.8 k/uL (1.3-7.7); Neutrophils % (A) 89 %; Platelet Count 168 k/uL (150-450); RBC 4.04 m/uL (4.30-5.90); RDW 13.2 % (11.5-15.5)
[2023-08-22] MEDS ORDERED: METOPROLOL TARTRATE 25 MG TAB PO STA (21:09)
[2023-08-22] MEDS ORDERED: KETOROLAC 15 MG/ML 1 ML VIAL IVP STA (21:10)
[2023-08-22 22:04] LABS: Glucose,Whole Blood 146 mg/dL (70-110)
[2023-08-22 23:02] LABS: Glucose,Whole Blood 140 mg/dL (70-110)
[2023-08-23 00:04] LABS: Glucose,Whole Blood 133 mg/dL (70-110)
[2023-08-23 01:06] LABS: Glucose,Whole Blood 129 mg/dL (70-110)
[2023-08-23 02:04] LABS: Glucose,Whole Blood 126 mg/dL (70-110)
[2023-08-23 03:02] LABS: Glucose,Whole Blood 116 mg/dL (70-110)
[2023-08-23] MEDS: DILTIAZEM 125 MG in SODIUM CHLORIDE 0.9% 100 ML IV SCH (03:22)
[2023-08-23 04:03] LABS: Glucose,Whole Blood 114 mg/dL (70-110)
[2023-08-23 04:11] LABS: Basophils % (A) 0 %; Eosinophils % (A) 0 %; HCT 34.7 % (39.0-53.0); HGB 12.1 gm/dL (13.0-17.5); Lymphocytes # (A) 1.5 k/uL (1.0-4.8); Lymphocytes % (A) 13 %; MCH 30.4 pg (25.0-35.0); MCHC 34.9 g/dL (31.0-37.0); Mean Platelet Volume 8.6; Monocytes # (A) 0.5 k/uL (0-1.0); Monocytes % (A) 4 %; Neutrophils # (A) 9.2 k/uL (1.3-7.7); Neutrophils % (A) 81 %; Platelet Count 173 k/uL (150-450); RBC 3.99 m/uL (4.30-5.90); RDW 13.2 % (11.5-15.5); WBC 11.3 k/uL (3.8-10.6)
[2023-08-23 04:15] LABS: Ionized Calcium 4.6 mg/dL (4.5-5.3)
[2023-08-23 04:24] LABS: ALT 63 U/L (4-49); AST 50 U/L (17-59); African American GFR (CKD) >90 (>60 ml/min/1.73 sqM); Albumin 3.6 g/dL (3.5-5.0); Alkaline Phosphatase 34 U/L (38-126); Anion Gap 8 mmol/L; Blood Urea Nitrogen 13 mg/dL (9-20); Calcium 8.2 mg/dL (8.4-10.2); Carbon Dioxide 23 mmol/L (22-30); Chloride 103 mmol/L (98-107); Glucose 108 mg/dL (74-99); Non-African American GFR(CKD) >90 (>60 ml/min/1.73 sqM); Potassium 4.2 mmol/L (3.5-5.1); Sodium 134 mmol/L (137-145); Total Protein 5.8 g/dL (6.3-8.2)
[2023-08-23 05:03] LABS: Glucose,Whole Blood 131 mg/dL (70-110)
[2023-08-23] MEDS: ALBUMIN HUMAN 5% 250 ML in EMPTY BAG 1 BAG IVPB PRN (06:05)
[2023-08-23 06:12] LABS: Glucose,Whole Blood 128 mg/dL (70-110)
[2023-08-23] MEDS ORDERED: ACETAMINOPHEN TAB 325 MG TAB PO PRN (06:47)
[2023-08-23] MEDS ORDERED: HYDROcodone/APAP 10-325MG 1 EACH TAB PO PRN (06:47)
[2023-08-23 06:55] LABS: Glucose,Whole Blood 123 mg/dL (70-110)
[2023-08-23] MEDS: KETOROLAC 15 MG/ML 1 ML VIAL IVP SCH ×4 (07:04→23:45)
[2023-08-23] MEDS: HYDROcodone/APAP 5-325MG 1 EACH TAB PO PRN ×3 (07:05→19:49)
--- NOTE | 2023-08-23 07:46 | P.PN ---
Subjective Progress Note Date: 08/23/23 PROGRESS NOTE The patient is a 57-year-old male who underwent cardiac catheterization and was found to have severe obstructive disease, underwent coronary artery bypass grafting yesterday by Dr. Walls, he received a LANE to the LAD and left radial to the intermediate and to the OM. He is extubated, sitting up in the chair, in sinus mechanism, hemodynamically stable. He has a prior history of CAD stenting of the right coronary artery and the LAD in 2000. Preoperatively his systolic function was preserved. He has a prior history of smoking, hypertension and hyperlipidemia. He is complaining of chest wall tenderness and mild cough Medications: Aspirin, Lipitor 40 mg daily, IV Cardizem, IV nitroglycerin, Plavix 75 mg daily, metoprolol tartrate 25 mg twice a day PHYSICAL EXAMINATION: Blood pressure 115/50 heart rate 80, PA pressure 28 /2 LUNGS: Few scattered rhonchi at the bases HEART: Regular rate and rhythm, S1, S2. No S3. No systolic murmur ABDOMEN: Soft, nontender, no organomegaly EXTREMETIES: No edema LAB: Hemoglobin 12.1, BUN 13, creatinine 0.69 IMPRESSION: 1. Status post CABG 2. History of prior stenting 3. Hyperlipidemia 4. And hypertension 5. Prior history of smoking PLAN: 1. Continue present therapy 2. Changed to oral calcium channel cathie and stop IV nitroglycerin 3. Incentive spirometry 4. Increase physical activity Objective - Vital Signs Vital signs: Vital Signs Temp 98.9 F 08/22/23 20:00 Pulse 81 08/23/23 07:00 Resp 24 08/23/23 07:00 BP 121/74 08/23/23 07:00 Pulse Ox 92 L 08/23/23 07:00 FiO2 50 08/22/23 17:30 Intake & Output 08/22/23 08/23/23 08/23/23 18:59 06:59 18:59 Intake Total 184.369 9190.546 8.551 Output Total 1610 1330 Balance -1001.307 -116.454 8.551 Weight 96.3 kg Intake: IV 592.0 1092.5 ACETAMINOPHEN IV (For NPO 100 ) 1,000 mg In Empty Bag 1 bag @ 400 mls/hr IVPB Q6HR [facility] Rx#:[id number] Diltiazem 125 mg In 30 65 Sodium Chloride 0.9% 100 ml @ 5 MG/HR 5 mls/hr IV .Q24H [facility] Rx#:[id number] Lactated Ringers 1,000 ml 200 650 @ 20 mls/hr IV .Q24H [facility] Rx#:[id number] Magnesium Sulfate-D5w Pmx 100 1 gm In Dextrose/Water 1 100ml.bag @ 100 mls/hr IVPB ONCE ONE Rx#: [id number] Nitroglycerin-D5w Pmx 50 9.0 19.5 mg In Dextrose/Water 1 250ml.bag @ 5 MCG/MIN 1.5 mls/hr IV .Q24H [facility] Rx#: [id number] Potassium Chloride 10 meq 200 In Water For Injection 1 100ml.bag @ 100 mls/hr IVPB Q1H [facility] Rx#: [id number] Pressure Bags 0.9/ CO/CI 258 Intake, IV Titration 16.693 121.046 8.551 Amount Diltiazem 125 mg In 71.833 Sodium Chloride 0.9% 100 ml @ 5 MG/HR 5 mls/hr IV .Q24H [facility] Rx#:[id number] Insulin Regular 100 unit 5.555 49.213 8.551 In Sodium Chloride 0.9% 100 ml @ Per Protocol IV .Q0M [facility] Rx#:[id number] propofoL 1,000 mg In 11.138 Empty Bag 1 bag @ Titrate IV .Q0M [facility] Rx#: [id number] Output: Chest Tube Drainage 300 600 Chest Tube Left Pleural/ 300 600 Mediastinal Drainage 30 Left Arm 30 Urine 910 700 Estimated Blood Loss 400 Other: Voiding Method Indwelling Catheter Indwelling Catheter ABP, PAP, CO, CI - Last Documented Arterial Blood Pressure 115/50 Pulmonary Artery Pressure 28/2 Cardiac Output 8.9 Cardiac Index 4.4 - Labs CBC & Chem 7: 08/23/23 04:00 08/23/23 04:00 Labs: Abnormal Lab Results - Last 24 Hours (Table) 08/21/23 08/22/23 08/22/23 Range/Units 11:46 08:43 10:20 WBC (3.8-10.6) k/uL RBC (4.30-5.90) m/uL Hgb (13.0-17.5) gm/dL Hct (39.0-53.0) % Neutrophils # (1.3-7.7) k/uL Lymphocytes # (1.0-4.8) k/uL PT (10.0-12.5) sec INR (<1.2) ABG pH (7.35-7.45) ABG pCO2 26 L (35-45) mmHg ABG pO2 127 H 121 H (83-108) mmHg ABG HCO3 16 L (21-25) mmol/L ABG Total CO2 17 L 26 H (19-24) mmol/L ABG O2 Saturation 99.8 H 99.6 H (94-97) % ABG Hematocrit 31 L (34.0-46.0) % ABG Sodium 147 H (135-146) mmol/L ABG Potassium 2.4 L* (3.4-4.5) mmol/L ABG Ionized Calcium 3.3 L* (4.5-5.3) mg/dL ABG Glucose 69 L 128 H (75-99) mg/dL ABG Lactic Acid 1.9 H (0.5-1.6) mmol/L Hemoglobin 10.0 L (13.0-17.5) gm/dL Sodium (137-145) mmol/L Carbon Dioxide (22-30) mmol/L Creatinine (0.66-1.25) mg/dL Glucose (74-99) mg/dL POC Glucose (mg/dL) (70-110) mg/dL Calcium (8.4-10.2) mg/dL Ionized Calcium Uriel (4.5-5.3) mg/dL ALT (4-49) U/L Alkaline Phosphatase (38-126) U/L Total Protein (6.3-8.2) g/dL Albumin (3.5-5.0) g/dL Arterial Blood Potassium 2.4 L* (3.4-4.5) mmol/L Arterial Blood Glucose 69 L 128 H (75-99) mg/dL Crossmatch See Detail 08/22/23 08/22/23 08/22/23 Range/Units 10:43 11:16 11:35 WBC (3.8-10.6) k/uL RBC (4.30-5.90) m/uL Hgb (13.0-17.5) gm/dL Hct (39.0-53.0) % Neutrophils # (1.3-7.7) k/uL Lymphocytes # (1.0-4.8) k/uL PT (10.0-12.5) sec INR (<1.2) ABG pH (7.35-7.45) ABG pCO2 (35-45) mmHg ABG pO2 177 H 197 H 146 H (83-108) mmHg ABG HCO3 (21-25) mmol/L ABG Total CO2 25 H 25 H (19-24) mmol/L ABG O2 Saturation 100.0 H 100.0 H 99.8 H (94-97) % ABG Hematocrit (34.0-46.0) % ABG Sodium (135-146) mmol/L ABG Potassium (3.4-4.5) mmol/L ABG Ionized Calcium 4.4 L 4.4 L 4.4 L (4.5-5.3) mg/dL ABG Glucose 115 H 107 H 110 H (75-99) mg/dL ABG Lactic Acid 1.9 H 2.4 H* 2.7 H* (0.5-1.6) mmol/L Hemoglobin 12.0 L 11.4 L 11.1 L (13.0-17.5) gm/dL Sodium (137-145) mmol/L Carbon Dioxide (22-30) mmol/L Creatinine (0.66-1.25) mg/dL Glucose (74-99) mg/dL POC Glucose (mg/dL) (70-110) mg/dL Calcium (8.4-10.2) mg/dL Ionized Calcium Uriel (4.5-5.3) mg/dL ALT (4-49) U/L Alkaline Phosphatase (38-126) U/L Total Protein (6.3-8.2) g/dL Albumin (3.5-5.0) g/dL Arterial Blood Potassium (3.4-4.5) mmol/L Arterial Blood Glucose 115 H 107 H 110 H (75-99) mg/dL Crossmatch 08/22/23 08/22/23 08/22/23 Range/Units 12:14 12:14 13:19 WBC (3.8-10.6) k/uL RBC (4.30-5.90) m/uL Hgb (13.0-17.5) gm/dL Hct (39.0-53.0) % Neutrophils # (1.3-7.7) k/uL Lymphocytes # (1.0-4.8) k/uL PT 13.5 H (10.0-12.5) sec INR 1.3 H (<1.2) ABG pH 7.33 L (7.35-7.45) ABG pCO2 46 H (35-45) mmHg ABG pO2 73 L (83-108) mmHg ABG HCO3 (21-25) mmol/L ABG Total CO2 26 H (19-24) mmol/L ABG O2 Saturation (94-97) % ABG Hematocrit (34.0-46.0) % ABG Sodium (135-146) mmol/L ABG Potassium (3.4-4.5) mmol/L ABG Ionized Calcium (4.5-5.3) mg/dL ABG Glucose (75-99) mg/dL ABG Lactic Acid (0.5-1.6) mmol/L Hemoglobin (13.0-17.5) gm/dL Sodium 136 L (137-145) mmol/L Carbon Dioxide 21 L (22-30) mmol/L Creatinine 0.63 L (0.66-1.25) mg/dL Glucose (74-99) mg/dL POC Glucose (mg/dL) (70-110) mg/dL Calcium 7.6 L (8.4-10.2) mg/dL Ionized Calcium Uriel 4.4 L (4.5-5.3) mg/dL ALT 63 H (4-49) U/L Alkaline Phosphatase 37 L (38-126) U/L Total Protein 5.3 L (6.3-8.2) g/dL Albumin 3.3 L (3.5-5.0) g/dL Arterial Blood Potassium (3.4-4.5) mmol/L Arterial Blood Glucose (75-99) mg/dL Crossmatch 08/22/23 08/22/23 08/22/23 Range/Units 14:14 14:50 14:53 WBC (3.8-10.6) k/uL RBC 3.79 L (4.30-5.90) m/uL Hgb 11.7 L D (13.0-17.5) gm/dL Hct 33.4 L (39.0-53.0) % Neutrophils # 7.9 H (1.3-7.7) k/uL Lymphocytes # (1.0-4.8) k/uL PT (10.0-12.5) sec INR (<1.2) ABG pH (7.35-7.45) ABG pCO2 (35-45) mmHg ABG pO2 (83-108) mmHg ABG HCO3 (21-25) mmol/L ABG Total CO2 (19-24) mmol/L ABG O2 Saturation (94-97) % ABG Hematocrit (34.0-46.0) % ABG Sodium (135-146) mmol/L ABG Potassium (3.4-4.5) mmol/L ABG Ionized Calcium (4.5-5.3) mg/dL ABG Glucose (75-99) mg/dL ABG Lactic Acid (0.5-1.6) mmol/L Hemoglobin (13.0-17.5) gm/dL Sodium (137-145) mmol/L Carbon Dioxide (22-30) mmol/L Creatinine (0.66-1.25) mg/dL Glucose (74-99) mg/dL POC Glucose (mg/dL) 137 H 152 H (70-110) mg/dL Calcium (8.4-10.2) mg/dL Ionized Calcium Uriel (4.5-5.3) mg/dL ALT (4-49) U/L Alkaline Phosphatase (38-126) U/L Total Protein (6.3-8.2) g/dL Albumin (3.5-5.0) g/dL Arterial Blood Potassium (3.4-4.5) mmol/L Arterial Blood Glucose (75-99) mg/dL Crossmatch 08/22/23 08/22/23 08/22/23 Range/Units 16:04 17:03 17:56 WBC (3.8-10.6) k/uL RBC (4.30-5.90) m/uL Hgb (13.0-17.5) gm/dL Hct (39.0-53.0) % Neutrophils # (1.3-7.7) k/uL Lymphocytes # (1.0-4.8) k/uL PT (10.0-12.5) sec INR (<1.2) ABG pH (7.35-7.45) ABG pCO2 (35-45) mmHg ABG pO2 (83-108) mmHg ABG HCO3 (21-25) mmol/L ABG Total CO2 (19-24) mmol/L ABG O2 Saturation (94-97) % ABG Hematocrit (34.0-46.0) % ABG Sodium (135-146) mmol/L ABG Potassium (3.4-4.5) mmol/L ABG Ionized Calcium (4.5-5.3) mg/dL ABG Glucose (75-99) mg/dL ABG Lactic Acid (0.5-1.6) mmol/L Hemoglobin (13.0-17.5) gm/dL Sodium (137-145) mmol/L Carbon Dioxide (22-30) mmol/L Creatinine (0.66-1.25) mg/dL Glucose (74-99) mg/dL POC Glucose (mg/dL) 168 H 199 H 186 H (70-110) mg/dL Calcium (8.4-10.2) mg/dL Ionized Calcium Uriel (4.5-5.3) mg/dL ALT (4-49) U/L Alkaline Phosphatase (38-126) U/L Total Protein (6.3-8.2) g/dL Albumin (3.5-5.0) g/dL Arterial Blood Potassium (3.4-4.5) mmol/L Arterial Blood Glucose (75-99) mg/dL Crossmatch 08/22/23 08/22/23 08/22/23 Range/Units 18:03 19:29 20:00 WBC 10.9 H (3.8-10.6) k/uL RBC 3.92 L (4.30-5.90) m/uL Hgb 12.0 L (13.0-17.5) gm/dL Hct 34.4 L (39.0-53.0) % Neutrophils # 9.7 H (1.3-7.7) k/uL Lymphocytes # 0.7 L (1.0-4.8) k/uL PT (10.0-12.5) sec INR (<1.2) ABG pH (7.35-7.45) ABG pCO2 (35-45) mmHg ABG pO2 (83-108) mmHg ABG HCO3 (21-25) mmol/L ABG Total CO2 (19-24) mmol/L ABG O2 Saturation (94-97) % ABG Hematocrit (34.0-46.0) % ABG Sodium (135-146) mmol/L ABG Potassium (3.4-4.5) mmol/L ABG Ionized Calcium (4.5-5.3) mg/dL ABG Glucose (75-99) mg/dL ABG Lactic Acid (0.5-1.6) mmol/L Hemoglobin (13.0-17.5) gm/dL Sodium (137-145) mmol/L Carbon Dioxide (22-30) mmol/L Creatinine (0.66-1.25) mg/dL Glucose (74-99) mg/dL POC Glucose (mg/dL) 148 H 149 H (70-110) mg/dL Calcium (8.4-10.2) mg/dL Ionized Calcium Uriel (4.5-5.3) mg/dL ALT (4-49) U/L Alkaline Phosphatase (38-126) U/L Total Protein (6.3-8.2) g/dL Albumin (3.5-5.0) g/dL Arterial Blood Potassium (3.4-4.5) mmol/L Arterial Blood Glucose (75-99) mg/dL Crossmatch 08/22/23 08/22/23 08/22/23 Range/Units 20:51 20:52 22:02 WBC 11.0 H (3.8-10.6) k/uL RBC 4.04 L (4.30-5.90) m/uL Hgb 12.2 L (13.0-17.5) gm/dL Hct 35.3 L (39.0-53.0) % Neutrophils # 9.8 H (1.3-7.7) k/uL Lymphocytes # 0.7 L (1.0-4.8) k/uL PT (10.0-12.5) sec INR (<1.2) ABG pH (7.35-7.45) ABG pCO2 (35-45) mmHg ABG pO2 (83-108) mmHg ABG HCO3 (21-25) mmol/L ABG Total CO2 (19-24) mmol/L ABG O2 Saturation (94-97) % ABG Hematocrit (34.0-46.0) % ABG Sodium (135-146) mmol/L ABG Potassium (3.4-4.5) mmol/L ABG Ionized Calcium (4.5-5.3) mg/dL ABG Glucose (75-99) mg/dL ABG Lactic Acid (0.5-1.6) mmol/L Hemoglobin (13.0-17.5) gm/dL Sodium (137-145) mmol/L Carbon Dioxide (22-30) mmol/L Creatinine (0.66-1.25) mg/dL Glucose (74-99) mg/dL POC Glucose (mg/dL) 145 H 146 H (70-110) mg/dL Calcium (8.4-10.2) mg/dL Ionized Calcium Uriel (4.5-5.3) mg/dL ALT (4-49) U/L Alkaline Phosphatase (38-126) U/L Total Protein (6.3-8.2) g/dL Albumin (3.5-5.0) g/dL Arterial Blood Potassium (3.4-4.5) mmol/L Arterial Blood Glucose (75-99) mg/dL Crossmatch 08/22/23 08/23/23 08/23/23 Range/Units 23:00 00:02 01:05 WBC (3.8-10.6) k/uL RBC (4.30-5.90) m/uL Hgb (13.0-17.5) gm/dL Hct (39.0-53.0) % Neutrophils # (1.3-7.7) k/uL Lymphocytes # (1.0-4.8) k/uL PT (10.0-12.5) sec INR (<1.2) ABG pH (7.35-7.45) ABG pCO2 (35-45) mmHg ABG pO2 (83-108) mmHg ABG HCO3 (21-25) mmol/L ABG Total CO2 (19-24) mmol/L ABG O2 Saturation (94-97) % ABG Hematocrit (34.0-46.0) % ABG Sodium (135-146) mmol/L ABG Potassium (3.4-4.5) mmol/L ABG Ionized Calcium (4.5-5.3) mg/dL ABG Glucose (75-99) mg/dL ABG Lactic Acid (0.5-1.6) mmol/L Hemoglobin (13.0-17.5) gm/dL Sodium (137-145) mmol/L Carbon Dioxide (22-30) mmol/L Creatinine (0.66-1.25) mg/dL Glucose (74-99) mg/dL POC Glucose (mg/dL) 140 H 133 H 129 H (70-110) mg/dL Calcium (8.4-10.2) mg/dL Ionized Calcium Uriel (4.5-5.3) mg/dL ALT (4-49) U/L Alkaline Phosphatase (38-126) U/L Total Protein (6.3-8.2) g/dL Albumin (3.5-5.0) g/dL Arterial Blood Potassium (3.4-4.5) mmol/L Arterial Blood Glucose (75-99) mg/dL Crossmatch 08/23/23 08/23/23 08/23/23 Range/Units 02:02 03:00 04:00 WBC 11.3 H (3.8-10.6) k/uL RBC 3.99 L (4.30-5.90) m/uL Hgb 12.1 L (13.0-17.5) gm/dL Hct 34.7 L (39.0-53.0) % Neutrophils # 9.2 H (1.3-7.7) k/uL Lymphocytes # (1.0-4.8) k/uL PT (10.0-12.5) sec INR (<1.2) ABG pH (7.35-7.45) ABG pCO2 (35-45) mmHg ABG pO2 (83-108) mmHg ABG HCO3 (21-25) mmol/L ABG Total CO2 (19-24) mmol/L ABG O2 Saturation (94-97) % ABG Hematocrit (34.0-46.0) % ABG Sodium (135-146) mmol/L ABG Potassium (3.4-4.5) mmol/L ABG Ionized Calcium (4.5-5.3) mg/dL ABG Glucose (75-99) mg/dL ABG Lactic Acid (0.5-1.6) mmol/L Hemoglobin (13.0-17.5) gm/dL Sodium (137-145) mmol/L Carbon Dioxide (22-30) mmol/L Creatinine (0.66-1.25) mg/dL Glucose (74-99) mg/dL POC Glucose (mg/dL) 126 H 116 H (70-110) mg/dL Calcium (8.4-10.2) mg/dL Ionized Calcium Uriel (4.5-5.3) mg/dL ALT (4-49) U/L Alkaline Phosphatase (38-126) U/L Total Protein (6.3-8.2) g/dL Albumin (3.5-5.0) g/dL Arterial Blood Potassium (3.4-4.5) mmol/L Arterial Blood Glucose (75-99) mg/dL Crossmatch 08/23/23 08/23/23 08/23/23 Range/Units 04:00 04:01 05:00 WBC (3.8-10.6) k/uL RBC (4.30-5.90) m/uL Hgb (13.0-17.5) gm/dL Hct (39.0-53.0) % Neutrophils # (1.3-7.7) k/uL Lymphocytes # (1.0-4.8) k/uL PT (10.0-12.5) sec INR (<1.2) ABG pH (7.35-7.45) ABG pCO2 (35-45) mmHg ABG pO2 (83-108) mmHg ABG HCO3 (21-25) mmol/L ABG Total CO2 (19-24) mmol/L ABG O2 Saturation (94-97) % ABG Hematocrit (34.0-46.0) % ABG Sodium (135-146) mmol/L ABG Potassium (3.4-4.5) mmol/L ABG Ionized Calcium (4.5-5.3) mg/dL ABG Glucose (75-99) mg/dL ABG Lactic Acid (0.5-1.6) mmol/L Hemoglobin (13.0-17.5) gm/dL Sodium 134 L (137-145) mmol/L Carbon Dioxide (22-30) mmol/L Creatinine (0.66-1.25) mg/dL Glucose 108 H (74-99) mg/dL POC Glucose (mg/dL) 114 H 131 H (70-110) mg/dL Calcium 8.2 L (8.4-10.2) mg/dL Ionized Calcium Uriel (4.5-5.3) mg/dL ALT 63 H (4-49) U/L Alkaline Phosphatase 34 L (38-126) U/L Total Protein 5.8 L (6.3-8.2) g/dL Albumin (3.5-5.0) g/dL Arterial Blood Potassium (3.4-4.5) mmol/L Arterial Blood Glucose (75-99) mg/dL Crossmatch 08/23/23 08/23/23 Range/Units 06:10 06:53 WBC (3.8-10.6) k/uL RBC (4.30-5.90) m/uL Hgb (13.0-17.5) gm/dL Hct (39.0-53.0) % Neutrophils # (1.3-7.7) k/uL Lymphocytes # (1.0-4.8) k/uL PT (10.0-12.5) sec INR (<1.2) ABG pH (7.35-7.45) ABG pCO2 (35-45) mmHg ABG pO2 (83-108) mmHg ABG HCO3 (21-25) mmol/L ABG Total CO2 (19-24) mmol/L ABG O2 Saturation (94-97) % ABG Hematocrit (34.0-46.0) % ABG Sodium (135-146) mmol/L ABG Potassium (3.4-4.5) mmol/L ABG Ionized Calcium (4.5-5.3) mg/dL ABG Glucose (75-99) mg/dL ABG Lactic Acid (0.5-1.6) mmol/L Hemoglobin (13.0-17.5) gm/dL Sodium (137-145) mmol/L Carbon Dioxide (22-30) mmol/L Creatinine (0.66-1.25) mg/dL Glucose (74-99) mg/dL POC Glucose (mg/dL) 128 H 123 H (70-110) mg/dL Calcium (8.4-10.2) mg/dL Ionized Calcium Uriel (4.5-5.3) mg/dL ALT (4-49) U/L Alkaline Phosphatase (38-126) U/L Total Protein (6.3-8.2) g/dL Albumin (3.5-5.0) g/dL Arterial Blood Potassium (3.4-4.5) mmol/L Arterial Blood Glucose (75-99) mg/dL Crossmatch
--- NOTE | 2023-08-23 07:47 | P.PN ---
Subjective Progress Note Date: 08/23/23 Principal diagnosis: Coronary artery disease. History of previous myocardial infarction and PCI in 2000, hypertension, hyperlipidemia, previous tobacco dependence. 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 He was successfully extubated last night at 17:40. Currently complains of postoperative expected pain, especially with deep breaths and coughing. Remains in sinus rhythm, hemodynamically stable on no inotropes or pressors. Remains on IV Cardizem and nitro for vessel spasm prophylaxis. Currently on 2 L nasal cannula with oxygen saturation in the low to mid 90s. Able to achieve 500 mL on his incentive spirometry. Right internal jugular Friendship/Cordis, right radial arterial line, left arm MICKI, mediastinal/left pleural chest tubes all remain. Chest x-ray, labs reviewed. No other new concerns. Objective - Vital Signs Vital signs: Vital Signs Temp 98.9 F 08/22/23 20:00 Pulse 81 08/23/23 07:00 Resp 24 08/23/23 07:00 BP 121/74 08/23/23 07:00 Pulse Ox 92 L 08/23/23 07:00 FiO2 50 08/22/23 17:30 Intake & Output 08/22/23 08/23/23 08/23/23 18:59 06:59 18:59 Intake Total 320.771 9355.546 8.551 Output Total 1610 1330 Balance -1001.307 -116.454 8.551 Weight 96.3 kg Intake: IV 592.0 1092.5 ACETAMINOPHEN IV (For NPO 100 ) 1,000 mg In Empty Bag 1 bag @ 400 mls/hr IVPB Q6HR [facility] Rx#:[id number] Diltiazem 125 mg In 30 65 Sodium Chloride 0.9% 100 ml @ 5 MG/HR 5 mls/hr IV .Q24H [facility] Rx#:[id number] Lactated Ringers 1,000 ml 200 650 @ 20 mls/hr IV .Q24H [facility] Rx#:[id number] Magnesium Sulfate-D5w Pmx 100 1 gm In Dextrose/Water 1 100ml.bag @ 100 mls/hr IVPB ONCE ONE Rx#: [id number] Nitroglycerin-D5w Pmx 50 9.0 19.5 mg In Dextrose/Water 1 250ml.bag @ 5 MCG/MIN 1.5 mls/hr IV .Q24H [facility] Rx#: [id number] Potassium Chloride 10 meq 200 In Water For Injection 1 100ml.bag @ 100 mls/hr IVPB Q1H [facility] Rx#: [id number] Pressure Bags 0.9/ CO/CI 258 Intake, IV Titration 16.693 121.046 8.551 Amount Diltiazem 125 mg In 71.833 Sodium Chloride 0.9% 100 ml @ 5 MG/HR 5 mls/hr IV .Q24H [facility] Rx#:[id number] Insulin Regular 100 unit 5.555 49.213 8.551 In Sodium Chloride 0.9% 100 ml @ Per Protocol IV .Q0M [facility] Rx#:[id number] propofoL 1,000 mg In 11.138 Empty Bag 1 bag @ Titrate IV .Q0M [facility] Rx#: [id number] Output: Chest Tube Drainage 300 600 Chest Tube Left Pleural/ 300 600 Mediastinal Drainage 30 Left Arm 30 Urine 910 700 Estimated Blood Loss 400 Other: Voiding Method Indwelling Catheter Indwelling Catheter ABP, PAP, CO, CI - Last Documented Arterial Blood Pressure 115/50 Pulmonary Artery Pressure 28/2 Cardiac Output 8.9 Cardiac Index 4.4 - Exam CONSTITUTIONAL: Appears comfortable, cooperative, no acute distress RESPIRATORY: Lungs sounds diminished bilaterally. Respirations even, nonlabored. Currently on 2 L nasal cannula with oxygen saturation 93%. Able to achieve 500 mL on incentive spirometry. Strong cough. CARDIOVASCULAR: S1, S2 present. Regular rate and rhythm, sinus rhythm on telemetry. Sternum stable. Palpable peripheral pulses bilaterally. No edema present. No calf pain or tenderness noted. Heart hugger in place with patient demonstrating appropriate use. Antiembolism stockings, SCDs present. GASTROINTESTINAL: Abdomen soft, nontender, nondistended. Hypoactive bowel sounds present 4 quadrants. Tolerating clear liquids. Denies flatus GENITOURINARY: Santiago present draining clear, yellow urine. Output overnight 25-50 mL per hour INTEGUMENTARY: Skin is warm and dry with evidence of good perfusion. Anterior chest incision well approximated and covered with dry intact dressing. Left radial artery harvest site with MICKI drain present, minimal drainage. Right lower extremity EVH site well approximated without redness or drainage. NEUROLOGIC: Cranial nerves II through XII intact MUSKULOSKELETAL: Able to move all extremities, strength equal bilaterally PSYCHIATRIC: Alert and oriented to person place and time, appropriate affect, intact judgment and insight INVASIVE LINES AND TUBES: Mediastinal/left pleural chest tubes present and connected to wall suction, no air leaks present, 440 mL serosanguineous drainage overnight, 900 mL since surgery. Right internal jugular Friendship/Cordis, right radial arterial line present. Last CO/CI 8.9/4.4, PA 33/8, CVP 4. - Allied health notes Allied health notes reviewed: nursing - Labs CBC & Chem 7: 08/23/23 04:00 08/23/23 04:00 Labs: Abnormal Lab Results - Last 24 Hours (Table) 08/21/23 08/22/23 08/22/23 Range/Units 11:46 08:43 10:20 WBC (3.8-10.6) k/uL RBC (4.30-5.90) m/uL Hgb (13.0-17.5) gm/dL Hct (39.0-53.0) % Neutrophils # (1.3-7.7) k/uL Lymphocytes # (1.0-4.8) k/uL PT (10.0-12.5) sec INR (<1.2) ABG pH (7.35-7.45) ABG pCO2 26 L (35-45) mmHg ABG pO2 127 H 121 H (83-108) mmHg ABG HCO3 16 L (21-25) mmol/L ABG Total CO2 17 L 26 H (19-24) mmol/L ABG O2 Saturation 99.8 H 99.6 H (94-97) % ABG Hematocrit 31 L (34.0-46.0) % ABG Sodium 147 H (135-146) mmol/L ABG Potassium 2.4 L* (3.4-4.5) mmol/L ABG Ionized Calcium 3.3 L* (4.5-5.3) mg/dL ABG Glucose 69 L 128 H (75-99) mg/dL ABG Lactic Acid 1.9 H (0.5-1.6) mmol/L Hemoglobin 10.0 L (13.0-17.5) gm/dL Sodium (137-145) mmol/L Carbon Dioxide (22-30) mmol/L Creatinine (0.66-1.25) mg/dL Glucose (74-99) mg/dL POC Glucose (mg/dL) (70-110) mg/dL Calcium (8.4-10.2) mg/dL Ionized Calcium Uriel (4.5-5.3) mg/dL ALT (4-49) U/L Alkaline Phosphatase (38-126) U/L Total Protein (6.3-8.2) g/dL Albumin (3.5-5.0) g/dL Arterial Blood Potassium 2.4 L* (3.4-4.5) mmol/L Arterial Blood Glucose 69 L 128 H (75-99) mg/dL Crossmatch See Detail 08/22/23 08/22/23 08/22/23 Range/Units 10:43 11:16 11:35 WBC (3.8-10.6) k/uL RBC (4.30-5.90) m/uL Hgb (13.0-17.5) gm/dL Hct (39.0-53.0) % Neutrophils # (1.3-7.7) k/uL Lymphocytes # (1.0-4.8) k/uL PT (10.0-12.5) sec INR (<1.2) ABG pH (7.35-7.45) ABG pCO2 (35-45) mmHg ABG pO2 177 H 197 H 146 H (83-108) mmHg ABG HCO3 (21-25) mmol/L ABG Total CO2 25 H 25 H (19-24) mmol/L ABG O2 Saturation 100.0 H 100.0 H 99.8 H (94-97) % ABG Hematocrit (34.0-46.0) % ABG Sodium (135-146) mmol/L ABG Potassium (3.4-4.5) mmol/L ABG Ionized Calcium 4.4 L 4.4 L 4.4 L (4.5-5.3) mg/dL ABG Glucose 115 H 107 H 110 H (75-99) mg/dL ABG Lactic Acid 1.9 H 2.4 H* 2.7 H* (0.5-1.6) mmol/L Hemoglobin 12.0 L 11.4 L 11.1 L (13.0-17.5) gm/dL Sodium (137-145) mmol/L Carbon Dioxide (22-30) mmol/L Creatinine (0.66-1.25) mg/dL Glucose (74-99) mg/dL POC Glucose (mg/dL) (70-110) mg/dL Calcium (8.4-10.2) mg/dL Ionized Calcium Uriel (4.5-5.3) mg/dL ALT (4-49) U/L Alkaline Phosphatase (38-126) U/L Total Protein (6.3-8.2) g/dL Albumin (3.5-5.0) g/dL Arterial Blood Potassium (3.4-4.5) mmol/L Arterial Blood Glucose 115 H 107 H 110 H (75-99) mg/dL Crossmatch 08/22/23 08/22/23 08/22/23 Range/Units 12:14 12:14 13:19 WBC (3.8-10.6) k/uL RBC (4.30-5.90) m/uL Hgb (13.0-17.5) gm/dL Hct (39.0-53.0) % Neutrophils # (1.3-7.7) k/uL Lymphocytes # (1.0-4.8) k/uL PT 13.5 H (10.0-12.5) sec INR 1.3 H (<1.2) ABG pH 7.33 L (7.35-7.45) ABG pCO2 46 H (35-45) mmHg ABG pO2 73 L (83-108) mmHg ABG HCO3 (21-25) mmol/L ABG Total CO2 26 H (19-24) mmol/L ABG O2 Saturation (94-97) % ABG Hematocrit (34.0-46.0) % ABG Sodium (135-146) mmol/L ABG Potassium (3.4-4.5) mmol/L ABG Ionized Calcium (4.5-5.3) mg/dL ABG Glucose (75-99) mg/dL ABG Lactic Acid (0.5-1.6) mmol/L Hemoglobin (13.0-17.5) gm/dL Sodium 136 L (137-145) mmol/L Carbon Dioxide 21 L (22-30) mmol/L Creatinine 0.63 L (0.66-1.25) mg/dL Glucose (74-99) mg/dL POC Glucose (mg/dL) (70-110) mg/dL Calcium 7.6 L (8.4-10.2) mg/dL Ionized Calcium Uriel 4.4 L (4.5-5.3) mg/dL ALT 63 H (4-49) U/L Alkaline Phosphatase 37 L (38-126) U/L Total Protein 5.3 L (6.3-8.2) g/dL Albumin 3.3 L (3.5-5.0) g/dL Arterial Blood Potassium (3.4-4.5) mmol/L Arterial Blood Glucose (75-99) mg/dL Crossmatch 08/22/23 08/22/23 08/22/23 Range/Units 14:14 14:50 14:53 WBC (3.8-10.6) k/uL RBC 3.79 L (4.30-5.90) m/uL Hgb 11.7 L D (13.0-17.5) gm/dL Hct 33.4 L (39.0-53.0) % Neutrophils # 7.9 H (1.3-7.7) k/uL Lymphocytes # (1.0-4.8) k/uL PT (10.0-12.5) sec INR (<1.2) ABG pH (7.35-7.45) ABG pCO2 (35-45) mmHg ABG pO2 (83-108) mmHg ABG HCO3 (21-25) mmol/L ABG Total CO2 (19-24) mmol/L ABG O2 Saturation (94-97) % ABG Hematocrit (34.0-46.0) % ABG Sodium (135-146) mmol/L ABG Potassium (3.4-4.5) mmol/L ABG Ionized Calcium (4.5-5.3) mg/dL ABG Glucose (75-99) mg/dL ABG Lactic Acid (0.5-1.6) mmol/L Hemoglobin (13.0-17.5) gm/dL Sodium (137-145) mmol/L Carbon Dioxide (22-30) mmol/L Creatinine (0.66-1.25) mg/dL Glucose (74-99) mg/dL POC Glucose (mg/dL) 137 H 152 H (70-110) mg/dL Calcium (8.4-10.2) mg/dL Ionized Calcium Uriel (4.5-5.3) mg/dL ALT (4-49) U/L Alkaline Phosphatase (38-126) U/L Total Protein (6.3-8.2) g/dL Albumin (3.5-5.0) g/dL Arterial Blood Potassium (3.4-4.5) mmol/L Arterial Blood Glucose (75-99) mg/dL Crossmatch 08/22/23 08/22/23 08/22/23 Range/Units 16:04 17:03 17:56 WBC (3.8-10.6) k/uL RBC (4.30-5.90) m/uL Hgb (13.0-17.5) gm/dL Hct (39.0-53.0) % Neutrophils # (1.3-7.7) k/uL Lymphocytes # (1.0-4.8) k/uL PT (10.0-12.5) sec INR (<1.2) ABG pH (7.35-7.45) ABG pCO2 (35-45) mmHg ABG pO2 (83-108) mmHg ABG HCO3 (21-25) mmol/L ABG Total CO2 (19-24) mmol/L ABG O2 Saturation (94-97) % ABG Hematocrit (34.0-46.0) % ABG Sodium (135-146) mmol/L ABG Potassium (3.4-4.5) mmol/L ABG Ionized Calcium (4.5-5.3) mg/dL ABG Glucose (75-99) mg/dL ABG Lactic Acid (0.5-1.6) mmol/L Hemoglobin (13.0-17.5) gm/dL Sodium (137-145) mmol/L Carbon Dioxide (22-30) mmol/L Creatinine (0.66-1.25) mg/dL Glucose (74-99) mg/dL POC Glucose (mg/dL) 168 H 199 H 186 H (70-110) mg/dL Calcium (8.4-10.2) mg/dL Ionized Calcium Uriel (4.5-5.3) mg/dL ALT (4-49) U/L Alkaline Phosphatase (38-126) U/L Total Protein (6.3-8.2) g/dL Albumin (3.5-5.0) g/dL Arterial Blood Potassium (3.4-4.5) mmol/L Arterial Blood Glucose (75-99) mg/dL Crossmatch 08/22/23 08/22/23 08/22/23 Range/Units 18:03 19:29 20:00 WBC 10.9 H (3.8-10.6) k/uL RBC 3.92 L (4.30-5.90) m/uL Hgb 12.0 L (13.0-17.5) gm/dL Hct 34.4 L (39.0-53.0) % Neutrophils # 9.7 H (1.3-7.7) k/uL Lymphocytes # 0.7 L (1.0-4.8) k/uL PT (10.0-12.5) sec INR (<1.2) ABG pH (7.35-7.45) ABG pCO2 (35-45) mmHg ABG pO2 (83-108) mmHg ABG HCO3 (21-25) mmol/L ABG Total CO2 (19-24) mmol/L ABG O2 Saturation (94-97) % ABG Hematocrit (34.0-46.0) % ABG Sodium (135-146) mmol/L ABG Potassium (3.4-4.5) mmol/L ABG Ionized Calcium (4.5-5.3) mg/dL ABG Glucose (75-99) mg/dL ABG Lactic Acid (0.5-1.6) mmol/L Hemoglobin (13.0-17.5) gm/dL Sodium (137-145) mmol/L Carbon Dioxide (22-30) mmol/L Creatinine (0.66-1.25) mg/dL Glucose (74-99) mg/dL POC Glucose (mg/dL) 148 H 149 H (70-110) mg/dL Calcium (8.4-10.2) mg/dL Ionized Calcium Uriel (4.5-5.3) mg/dL ALT (4-49) U/L Alkaline Phosphatase (38-126) U/L Total Protein (6.3-8.2) g/dL Albumin (3.5-5.0) g/dL Arterial Blood Potassium (3.4-4.5) mmol/L Arterial Blood Glucose (75-99) mg/dL Crossmatch 08/22/23 08/22/23 08/22/23 Range/Units 20:51 20:52 22:02 WBC 11.0 H (3.8-10.6) k/uL RBC 4.04 L (4.30-5.90) m/uL Hgb 12.2 L (13.0-17.5) gm/dL Hct 35.3 L (39.0-53.0) % Neutrophils # 9.8 H (1.3-7.7) k/uL Lymphocytes # 0.7 L (1.0-4.8) k/uL PT (10.0-12.5) sec INR (<1.2) ABG pH (7.35-7.45) ABG pCO2 (35-45) mmHg ABG pO2 (83-108) mmHg ABG HCO3 (21-25) mmol/L ABG Total CO2 (19-24) mmol/L ABG O2 Saturation (94-97) % ABG Hematocrit (34.0-46.0) % ABG Sodium (135-146) mmol/L ABG Potassium (3.4-4.5) mmol/L ABG Ionized Calcium (4.5-5.3) mg/dL ABG Glucose (75-99) mg/dL ABG Lactic Acid (0.5-1.6) mmol/L Hemoglobin (13.0-17.5) gm/dL Sodium (137-145) mmol/L Carbon Dioxide (22-30) mmol/L Creatinine (0.66-1.25) mg/dL Glucose (74-99) mg/dL POC Glucose (mg/dL) 145 H 146 H (70-110) mg/dL Calcium (8.4-10.2) mg/dL Ionized Calcium Uriel (4.5-5.3) mg/dL ALT (4-49) U/L Alkaline Phosphatase (38-126) U/L Total Protein (6.3-8.2) g/dL Albumin (3.5-5.0) g/dL Arterial Blood Potassium (3.4-4.5) mmol/L Arterial Blood Glucose (75-99) mg/dL Crossmatch 08/22/23 08/23/23 08/23/23 Range/Units 23:00 00:02 01:05 WBC (3.8-10.6) k/uL RBC (4.30-5.90) m/uL Hgb (13.0-17.5) gm/dL Hct (39.0-53.0) % Neutrophils # (1.3-7.7) k/uL Lymphocytes # (1.0-4.8) k/uL PT (10.0-12.5) sec INR (<1.2) ABG pH (7.35-7.45) ABG pCO2 (35-45) mmHg ABG pO2 (83-108) mmHg ABG HCO3 (21-25) mmol/L ABG Total CO2 (19-24) mmol/L ABG O2 Saturation (94-97) % ABG Hematocrit (34.0-46.0) % ABG Sodium (135-146) mmol/L ABG Potassium (3.4-4.5) mmol/L ABG Ionized Calcium (4.5-5.3) mg/dL ABG Glucose (75-99) mg/dL ABG Lactic Acid (0.5-1.6) mmol/L Hemoglobin (13.0-17.5) gm/dL Sodium (137-145) mmol/L Carbon Dioxide (22-30) mmol/L Creatinine (0.66-1.25) mg/dL Glucose (74-99) mg/dL POC Glucose (mg/dL) 140 H 133 H 129 H (70-110) mg/dL Calcium (8.4-10.2) mg/dL Ionized Calcium Uriel (4.5-5.3) mg/dL ALT (4-49) U/L Alkaline Phosphatase (38-126) U/L Total Protein (6.3-8.2) g/dL Albumin (3.5-5.0) g/dL Arterial Blood Potassium (3.4-4.5) mmol/L Arterial Blood Glucose (75-99) mg/dL Crossmatch 08/23/23 08/23/23 08/23/23 Range/Units 02:02 03:00 04:00 WBC 11.3 H (3.8-10.6) k/uL RBC 3.99 L (4.30-5.90) m/uL Hgb 12.1 L (13.0-17.5) gm/dL Hct 34.7 L (39.0-53.0) % Neutrophils # 9.2 H (1.3-7.7) k/uL Lymphocytes # (1.0-4.8) k/uL PT (10.0-12.5) sec INR (<1.2) ABG pH (7.35-7.45) ABG pCO2 (35-45) mmHg ABG pO2 (83-108) mmHg ABG HCO3 (21-25) mmol/L ABG Total CO2 (19-24) mmol/L ABG O2 Saturation (94-97) % ABG Hematocrit (34.0-46.0) % ABG Sodium (135-146) mmol/L ABG Potassium (3.4-4.5) mmol/L ABG Ionized Calcium (4.5-5.3) mg/dL ABG Glucose (75-99) mg/dL ABG Lactic Acid (0.5-1.6) mmol/L Hemoglobin (13.0-17.5) gm/dL Sodium (137-145) mmol/L Carbon Dioxide (22-30) mmol/L Creatinine (0.66-1.25) mg/dL Glucose (74-99) mg/dL POC Glucose (mg/dL) 126 H 116 H (70-110) mg/dL Calcium (8.4-10.2) mg/dL Ionized Calcium Uriel (4.5-5.3) mg/dL ALT (4-49) U/L Alkaline Phosphatase (38-126) U/L Total Protein (6.3-8.2) g/dL Albumin (3.5-5.0) g/dL Arterial Blood Potassium (3.4-4.5) mmol/L Arterial Blood Glucose (75-99) mg/dL Crossmatch 08/23/23 08/23/23 08/23/23 Range/Units 04:00 04:01 05:00 WBC (3.8-10.6) k/uL RBC (4.30-5.90) m/uL Hgb (13.0-17.5) gm/dL Hct (39.0-53.0) % Neutrophils # (1.3-7.7) k/uL Lymphocytes # (1.0-4.8) k/uL PT (10.0-12.5) sec INR (<1.2) ABG pH (7.35-7.45) ABG pCO2 (35-45) mmHg ABG pO2 (83-108) mmHg ABG HCO3 (21-25) mmol/L ABG Total CO2 (19-24) mmol/L ABG O2 Saturation (94-97) % ABG Hematocrit (34.0-46.0) % ABG Sodium (135-146) mmol/L ABG Potassium (3.4-4.5) mmol/L ABG Ionized Calcium (4.5-5.3) mg/dL ABG Glucose (75-99) mg/dL ABG Lactic Acid (0.5-1.6) mmol/L Hemoglobin (13.0-17.5) gm/dL Sodium 134 L (137-145) mmol/L Carbon Dioxide (22-30) mmol/L Creatinine (0.66-1.25) mg/dL Glucose 108 H (74-99) mg/dL POC Glucose (mg/dL) 114 H 131 H (70-110) mg/dL Calcium 8.2 L (8.4-10.2) mg/dL Ionized Calcium Uriel (4.5-5.3) mg/dL ALT 63 H (4-49) U/L Alkaline Phosphatase 34 L (38-126) U/L Total Protein 5.8 L (6.3-8.2) g/dL Albumin (3.5-5.0) g/dL Arterial Blood Potassium (3.4-4.5) mmol/L Arterial Blood Glucose (75-99) mg/dL Crossmatch 08/23/23 08/23/23 Range/Units 06:10 06:53 WBC (3.8-10.6) k/uL RBC (4.30-5.90) m/uL Hgb (13.0-17.5) gm/dL Hct (39.0-53.0) % Neutrophils # (1.3-7.7) k/uL Lymphocytes # (1.0-4.8) k/uL PT (10.0-12.5) sec INR (<1.2) ABG pH (7.35-7.45) ABG pCO2 (35-45) mmHg ABG pO2 (83-108) mmHg ABG HCO3 (21-25) mmol/L ABG Total CO2 (19-24) mmol/L ABG O2 Saturation (94-97) % ABG Hematocrit (34.0-46.0) % ABG Sodium (135-146) mmol/L ABG Potassium (3.4-4.5) mmol/L ABG Ionized Calcium (4.5-5.3) mg/dL ABG Glucose (75-99) mg/dL ABG Lactic Acid (0.5-1.6) mmol/L Hemoglobin (13.0-17.5) gm/dL Sodium (137-145) mmol/L Carbon Dioxide (22-30) mmol/L Creatinine (0.66-1.25) mg/dL Glucose (74-99) mg/dL POC Glucose (mg/dL) 128 H 123 H (70-110) mg/dL Calcium (8.4-10.2) mg/dL Ionized Calcium Uriel (4.5-5.3) mg/dL ALT (4-49) U/L Alkaline Phosphatase (38-126) U/L Total Protein (6.3-8.2) g/dL Albumin (3.5-5.0) g/dL Arterial Blood Potassium (3.4-4.5) mmol/L Arterial Blood Glucose (75-99) mg/dL Crossmatch - Imaging and Cardiology Chest x-ray: image reviewed Assessment and Plan Assessment: Coronary artery disease, complete occlusion of the right coronary artery, 70% ramus stenosis, proximal LAD stenosis 95%, status post three-vessel arterial CABG Previous myocardial infarction and PCI in 2000 Hypertension Hyperlipidemia, triglycerides 383, cholesterol 242, LDL 129 Previous tobacco dependence, preoperative FEV1 75% of predicted 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 Will increase beta cathie therapy as tolerated Discontinue IV nitro and Cardizem. Will start oral calcium channel cathie with hold parameters for radial artery spasm prophylaxis Wean O2 as tolerated. Encourage incentive spirometry use 10 times every hour while awake. Bronchodilators per pulmonology Increase activity, ambulate as tolerated. PT/OT/cardiac rehab consulted Will monitor daily labs and x-rays. Electrolyte replacement per protocol GI/DVT prophylaxis Pain control per current medication regimen. Toradol added for better pain control Insulin management per internal medicine service. Patient is not diabetic, hemoglobin A1c 5.9%. Needs to remain on insulin drip for 48 hours, then may tr ansition to subcutaneous per protocol Discontinue Friendship. Cannot Cordis to continuous CVP monitoring Discontinue MICKI drain Continue mediastinal/left pleural chest tube for another 24 hours, monitor outp ut Continue Santiago catheter for another 24 hours, continue to record strict accurate intake and output Daily weights Continue nasal mupirocin for 5 days total More recommendations to follow based on patient's progress
[2023-08-23] MEDS: HEPARIN SODIUM,PORCINE 5,000 UNIT/ML 1 ML VIAL SQ SCH ×3 (07:49→23:45)
[2023-08-23] MEDS: ASPIRIN 325 MG TAB PO SCH (07:51)
[2023-08-23] MEDS: METOPROLOL TARTRATE 25 MG TAB PO SCH ×2 (07:52→19:49)
[2023-08-23] MEDS: ATORVASTATIN 40 MG TAB PO SCH (07:55)
[2023-08-23] MEDS: CLOPIDOGREL 75 MG TAB PO SCH (07:55)
[2023-08-23] MEDS: IPRATROPIUM-ALBUTEROL 3 ML NEB INHALATION SCH ×4 (07:58→20:35)
[2023-08-23] MEDS: MUPIROCIN 2% OINT 22 GM TUBE NASAL SCH ×2 (07:59→19:49)
--- NOTE | 2023-08-23 08:11 | XR ---
EXAMINATION TYPE: XR chest 1V portable DATE OF EXAM: 08/23/2023 COMPARISON: 08/22/2023 HISTORY: Postop TECHNIQUE: Single frontal view of the chest is obtained. FINDINGS: ET and NG tube have been removed.. Mediastinal drain, chest tube, Hemlock-Phuc catheter are n oted. Median sternotomy changes noted. Bilateral infiltrate with small left effusion and interstitial pattern. Suspect mild venous congestion. Interval development of small right apical pneumothorax juventino suring approximately 5-10%. Pneumothorax. Hypertrophic degenerative changes of spine. Underlying COPD . The stomach is distended. IMPRESSION: 1. Interval development of small right pneumothorax. 2. Postoperative change with bilateral consolidation and small pleural effusion stable from prior exa m. Interstitium improved suggestive of reducing venous congestion.
[2023-08-23 08:55] LABS: Glucose,Whole Blood 116 mg/dL (70-110)
[2023-08-23] MEDS ORDERED: PANTOPRAZOLE 40 MG/10 ML VIAL IVP SCH (09:00)
[2023-08-23] MEDS ORDERED: METOPROLOL TARTRATE 12.5 MG TAB PO SCH (09:00)
[2023-08-23] MEDS ORDERED: bisacodyL 10 MG SUPP RECTAL PRN (09:00)
[2023-08-23] MEDS ORDERED: MAGNESIUM HYDROXIDE 2,400 MG/30 ML CUP PO PRN (09:00)
--- NOTE | 2023-08-23 09:00 | P.PN ---
Subjective Progress Note Date: 08/23/23 On 08/22/2023, seeing the patient after he arrived to the intensive care unit following his coronary artery bypass surgery. The patient underwent an off pump 3 vessel bypass surgery. He underwent LANE to LAD and left radial to intermediate and OM. The patient is currently on propofol which is running at 30 mcg/kg/m. His 1 cm a mechanical ventilator. He is on assist control mode at a rate of 12, tidal volume of 550, FiO2 was dropped down to 60% and PEEP of 5. The blood gas showed a pH of 7.43 with a pCO2 of 46 and pO2 of 73 and this was the most recent blood gases. The chest x-ray showed adequate expansion of both lungs. The patient has a left pleural and a mediastinal chest tube. No evidence of any pneumothorax. The [place]Phuc is in a good location. His cardiac output is at 5.5 with an index of 2.7. The patient was given IV albumin immediately after he arrived to the ICU. The patient is currently on nitroglycerin drip at 5 mcg/m and Cardizem drip at 5 mg an hour. The output from the chest tubes are minimal at this point in time and the patient has no evidence of any air leak. Patient is on no pressors., Comfortable. Cardiac rhythm is sinus. No other significant events . Urine output is adequate. The labs from today. Showed a sodium level of 136, BUN is at 40 with a creatinine of 0.63 and a serum bicarb is at 21. On 08/23/2023, the patient is extubated and patient is currently on oxygen at 2 L. The chest x-ray showed no acute abnormalities. The lungs are adequately expanded. Chest tubes are in place. No evidence of any pneumothorax. The patient has a left pleural and a mediastinal chest tube. There is no evidence of air leak. Output from the chest tube has been in the order of 1000 mL since arrival from the operating room. Noted the patient's weaning process was quite straightforward. No major respiratory issues. He had excellent weaning parameters. He was weaned off the mechanical ventilator and he was extubated without any major difficulties. The [place]-Phuc catheters were removed. The most recent cardiac output is at 6.1 with an index of 3.0. Is off the nitroglycerin drip. Cardizem drip will be discontinued at the later stage today. The patient is also on insulin drip at 2.5 units an hour with adequate blood sugar control. The cardiac rhythm is sinus at the rate of 80. He is awake, alert, communicatin g, burping, having some discomfort across his chest at the surgical site. Objective - Vital Signs Vital signs: Vital Signs Temp 100.2 F H 08/23/23 08:00 Pulse 79 08/23/23 08:01 Resp 16 08/23/23 08:01 BP 118/68 08/23/23 07:30 Pulse Ox 96 08/23/23 08:01 FiO2 50 08/22/23 17:30 Intake & Output 08/22/23 08/23/23 08/23/23 18:59 06:59 18:59 Intake Total 033.171 1596.546 72.551 Output Total 1610 1330 120 Balance -1001.307 -116.454 -47.449 Weight 96.3 kg Intake: IV 592.0 1092.5 64 ACETAMINOPHEN IV (For NPO 100 ) 1,000 mg In Empty Bag 1 bag @ 400 mls/hr IVPB Q6HR [facility] Rx#:[id number] Diltiazem 125 mg In 30 65 5 Sodium Chloride 0.9% 100 ml @ 5 MG/HR 5 mls/hr IV .Q24H [facility] Rx#:[id number] Lactated Ringers 1,000 ml 200 650 50 @ 20 mls/hr IV .Q24H [facility] Rx#:[id number] Magnesium Sulfate-D5w Pmx 100 1 gm In Dextrose/Water 1 100ml.bag @ 100 mls/hr IVPB ONCE ONE Rx#: [id number] Nitroglycerin-D5w Pmx 50 9.0 19.5 mg In Dextrose/Water 1 250ml.bag @ 5 MCG/MIN 1.5 mls/hr IV .Q24H [facility] Rx#: [id number] Potassium Chloride 10 meq 200 In Water For Injection 1 100ml.bag @ 100 mls/hr IVPB Q1H [facility] Rx#: [id number] Pressure Bags 0.9/ CO/CI 258 9 Intake, IV Titration 16.693 121.046 8.551 Amount Diltiazem 125 mg In 71.833 Sodium Chloride 0.9% 100 ml @ 5 MG/HR 5 mls/hr IV .Q24H [facility] Rx#:[id number] Insulin Regular 100 unit 5.555 49.213 8.551 In Sodium Chloride 0.9% 100 ml @ Per Protocol IV .Q0M [facility] Rx#:[id number] propofoL 1,000 mg In 11.138 Empty Bag 1 bag @ Titrate IV .Q0M [facility] Rx#: [id number] Output: Chest Tube Drainage 300 600 70 Chest Tube Left Pleural/ 300 600 70 Mediastinal Drainage 30 Left Arm 30 Urine 910 700 50 Estimated Blood Loss 400 Other: Voiding Method Indwelling Catheter Indwelling Catheter Indwelling Catheter ABP, PAP, CO, CI - Last Documented Arterial Blood Pressure 111/49 Pulmonary Artery Pressure 34/8 Cardiac Output 8.9 Cardiac Index 4.4 - Exam Gen. appearance, calm and comfortable, sedated, not in acute distress and the patient is on 2 L of oxygen nasal cannula Head exam was generally normal. There was no scleral icterus or corneal arcus. Mucous membranes were moist. Neck was supple and without jugular venous distension, thyromegaly, or carotid bruits. Carotids were easily palpable bilaterally. There was no adenopathy. The patient has a right IJ Cordis and the [place]-Phuc has been removed Lungs were clear to auscultation and percussion, and with normal diaphragmatic excursion. No wheezes or rales were noted. Cardiac exam revealed the PMI to be normally situated and sized. The rhythm was regular and no extrasystoles were noted during several minutes of auscultation. The first and second heart sounds were normal and physiologic splitting of the second heart sound was noted. There were no murmurs, rubs, clicks, or gallops. Abdominal exam revealed normal bowel sounds. The abdomen was soft, non-tender, and without masses, organomegaly, or appreciable enlargement of the abdominal aorta. Examination of the extremities revealed easily palpable radial, femoral and pedal pulses. There was no cyanosis, clubbing or edema. Examination of the skin revealed no evidence of significant rashes, suspicious appearing nevi or other concerning lesions. Neurologically, Neurologically, the patient is awake and alert and the patient does not have any focal neurological deficit. Cranial nerves are essentially intact. - Labs CBC & Chem 7: 08/23/23 04:00 08/23/23 04:00 Labs: Abnormal Lab Results - Last 24 Hours (Table) 08/21/23 08/22/2323 Range/Units 11:46 08:43 10:20 WBC (3.8-10.6) k/uL RBC (4.30-5.90) m/uL Hgb (13.0-17.5) gm/dL Hct (39.0-53.0) % Neutrophils # (1.3-7.7) k/uL Lymphocytes # (1.0-4.8) k/uL PT (10.0-12.5) sec INR (<1.2) ABG pH (7.35-7.45) ABG pCO2 26 L (35-45) mmHg ABG pO2 127 H 121 H (83-108) mmHg ABG HCO3 16 L (21-25) mmol/L ABG Total CO2 17 L 26 H (19-24) mmol/L ABG O2 Saturation 99.8 H 99.6 H (94-97) % ABG Hematocrit 31 L (34.0-46.0) % ABG Sodium 147 H (135-146) mmol/L ABG Potassium 2.4 L* (3.4-4.5) mmol/L ABG Ionized Calcium 3.3 L* (4.5-5.3) mg/dL ABG Glucose 69 L 128 H (75-99) mg/dL ABG Lactic Acid 1.9 H (0.5-1.6) mmol/L Hemoglobin 10.0 L (13.0-17.5) gm/dL Sodium (137-145) mmol/L Carbon Dioxide (22-30) mmol/L Creatinine (0.66-1.25) mg/dL Glucose (74-99) mg/dL POC Glucose (mg/dL) (70-110) mg/dL Calcium (8.4-10.2) mg/dL Ionized Calcium Uriel (4.5-5.3) mg/dL ALT (4-49) U/L Alkaline Phosphatase (38-126) U/L Total Protein (6.3-8.2) g/dL Albumin (3.5-5.0) g/dL Arterial Blood Potassium 2.4 L* (3.4-4.5) mmol/L Arterial Blood Glucose 69 L 128 H (75-99) mg/dL Crossmatch See Detail 08/22/23 08/22/23 08/22/23 Range/Units 10:43 11:16 11:35 WBC (3.8-10.6) k/uL RBC (4.30-5.90) m/uL Hgb (13.0-17.5) gm/dL Hct (39.0-53.0) % Neutrophils # (1.3-7.7) k/uL Lymphocytes # (1.0-4.8) k/uL PT (10.0-12.5) sec INR (<1.2) ABG pH (7.35-7.45) ABG pCO2 (35-45) mmHg ABG pO2 177 H 197 H 146 H (83-108) mmHg ABG HCO3 (21-25) mmol/L ABG Total CO2 25 H 25 H (19-24) mmol/L ABG O2 Saturation 100.0 H 100.0 H 99.8 H (94-97) % ABG Hematocrit (34.0-46.0) % ABG Sodium (135-146) mmol/L ABG Potassium (3.4-4.5) mmol/L ABG Ionized Calcium 4.4 L 4.4 L 4.4 L (4.5-5.3) mg/dL ABG Glucose 115 H 107 H 110 H (75-99) mg/dL ABG Lactic Acid 1.9 H 2.4 H* 2.7 H* (0.5-1.6) mmol/L Hemoglobin 12.0 L 11.4 L 11.1 L (13.0-17.5) gm/dL Sodium (137-145) mmol/L Carbon Dioxide (22-30) mmol/L Creatinine (0.66-1.25) mg/dL Glucose (74-99) mg/dL POC Glucose (mg/dL) (70-110) mg/dL Calcium (8.4-10.2) mg/dL Ionized Calcium Uriel (4.5-5.3) mg/dL ALT (4-49) U/L Alkaline Phosphatase (38-126) U/L Total Protein (6.3-8.2) g/dL Albumin (3.5-5.0) g/dL Arterial Blood Potassium (3.4-4.5) mmol/L Arterial Blood Glucose 115 H 107 H 110 H (75-99) mg/dL Crossmatch 08/22/23 08/22/23 08/22/23 Range/Units 12:14 12:14 13:19 WBC (3.8-10.6) k/uL RBC (4.30-5.90) m/uL Hgb (13.0-17.5) gm/dL Hct (39.0-53.0) % Neutrophils # (1.3-7.7) k/uL Lymphocytes # (1.0-4.8) k/uL PT 13.5 H (10.0-12.5) sec INR 1.3 H (<1.2) ABG pH 7.33 L (7.35-7.45) ABG pCO2 46 H (35-45) mmHg ABG pO2 73 L (83-108) mmHg ABG HCO3 (21-25) mmol/L ABG Total CO2 26 H (19-24) mmol/L ABG O2 Saturation (94-97) % ABG Hematocrit (34.0-46.0) % ABG Sodium (135-146) mmol/L ABG Potassium (3.4-4.5) mmol/L ABG Ionized Calcium (4.5-5.3) mg/dL ABG Glucose (75-99) mg/dL ABG Lactic Acid (0.5-1.6) mmol/L Hemoglobin (13.0-17.5) gm/dL Sodium 136 L (137-145) mmol/L Carbon Dioxide 21 L (22-30) mmol/L Creatinine 0.63 L (0.66-1.25) mg/dL Glucose (74-99) mg/dL POC Glucose (mg/dL) (70-110) mg/dL Calcium 7.6 L (8.4-10.2) mg/dL Ionized Calcium Uriel 4.4 L (4.5-5.3) mg/dL ALT 63 H (4-49) U/L Alkaline Phosphatase 37 L (38-126) U/L Total Protein 5.3 L (6.3-8.2) g/dL Albumin 3.3 L (3.5-5.0) g/dL Arterial Blood Potassium (3.4-4.5) mmol/L Arterial Blood Glucose (75-99) mg/dL Crossmatch 08/22/23 08/22/23 08/22/23 Range/Units 14:14 14:50 14:53 WBC (3.8-10.6) k/uL RBC 3.79 L (4.30-5.90) m/uL Hgb 11.7 L D (13.0-17.5) gm/dL Hct 33.4 L (39.0-53.0) % Neutrophils # 7.9 H (1.3-7.7) k/uL Lymphocytes # (1.0-4.8) k/uL PT (10.0-12.5) sec INR (<1.2) ABG pH (7.35-7.45) ABG pCO2 (35-45) mmHg ABG pO2 (83-108) mmHg ABG HCO3 (21-25) mmol/L ABG Total CO2 (19-24) mmol/L ABG O2 Saturation (94-97) % ABG Hematocrit (34.0-46.0) % ABG Sodium (135-146) mmol/L ABG Potassium (3.4-4.5) mmol/L ABG Ionized Calcium (4.5-5.3) mg/dL ABG Glucose (75-99) mg/dL ABG Lactic Acid (0.5-1.6) mmol/L Hemoglobin (13.0-17.5) gm/dL Sodium (137-145) mmol/L Carbon Dioxide (22-30) mmol/L Creatinine (0.66-1.25) mg/dL Glucose (74-99) mg/dL POC Glucose (mg/dL) 137 H 152 H (70-110) mg/dL Calcium (8.4-10.2) mg/dL Ionized Calcium Uriel (4.5-5.3) mg/dL ALT (4-49) U/L Alkaline Phosphatase (38-126) U/L Total Protein (6.3-8.2) g/dL Albumin (3.5-5.0) g/dL Arterial Blood Potassium (3.4-4.5) mmol/L Arterial Blood Glucose (75-99) mg/dL Crossmatch 08/22/23 08/22/23 08/22/23 Range/Units 16:04 17:03 17:56 WBC (3.8-10.6) k/uL RBC (4.30-5.90) m/uL Hgb (13.0-17.5) gm/dL Hct (39.0-53.0) % Neutrophils # (1.3-7.7) k/uL Lymphocytes # (1.0-4.8) k/uL PT (10.0-12.5) sec INR (<1.2) ABG pH (7.35-7.45) ABG pCO2 (35-45) mmHg ABG pO2 (83-108) mmHg ABG HCO3 (21-25) mmol/L ABG Total CO2 (19-24) mmol/L ABG O2 Saturation (94-97) % ABG Hematocrit (34.0-46.0) % ABG Sodium (135-146) mmol/L ABG Potassium (3.4-4.5) mmol/L ABG Ionized Calcium (4.5-5.3) mg/dL ABG Glucose (75-99) mg/dL ABG Lactic Acid (0.5-1.6) mmol/L Hemoglobin (13.0-17.5) gm/dL Sodium (137-145) mmol/L Carbon Dioxide (22-30) mmol/L Creatinine (0.66-1.25) mg/dL Glucose (74-99) mg/dL POC Glucose (mg/dL) 168 H 199 H 186 H (70-110) mg/dL Calcium (8.4-10.2) mg/dL Ionized Calcium Uriel (4.5-5.3) mg/dL ALT (4-49) U/L Alkaline Phosphatase (38-126) U/L Total Protein (6.3-8.2) g/dL Albumin (3.5-5.0) g/dL Arterial Blood Potassium (3.4-4.5) mmol/L Arterial Blood Glucose (75-99) mg/dL Crossmatch 08/22/23 08/22/23 08/22/23 Range/Units 18:03 19:29 20:00 WBC 10.9 H (3.8-10.6) k/uL RBC 3.92 L (4.30-5.90) m/uL Hgb 12.0 L (13.0-17.5) gm/dL Hct 34.4 L (39.0-53.0) % Neutrophils # 9.7 H (1.3-7.7) k/uL Lymphocytes # 0.7 L (1.0-4.8) k/uL PT (10.0-12.5) sec INR (<1.2) ABG pH (7.35-7.45) ABG pCO2 (35-45) mmHg ABG pO2 (83-108) mmHg ABG HCO3 (21-25) mmol/L ABG Total CO2 (19-24) mmol/L ABG O2 Saturation (94-97) % ABG Hematocrit (34.0-46.0) % ABG Sodium (135-146) mmol/L ABG Potassium (3.4-4.5) mmol/L ABG Ionized Calcium (4.5-5.3) mg/dL ABG Glucose (75-99) mg/dL ABG Lactic Acid (0.5-1.6) mmol/L Hemoglobin (13.0-17.5) gm/dL Sodium (137-145) mmol/L Carbon Dioxide (22-30) mmol/L Creatinine (0.66-1.25) mg/dL Glucose (74-99) mg/dL POC Glucose (mg/dL) 148 H 149 H (70-110) mg/dL Calcium (8.4-10.2) mg/dL Ionized Calcium Uriel (4.5-5.3) mg/dL ALT (4-49) U/L Alkaline Phosphatase (38-126) U/L Total Protein (6.3-8.2) g/dL Albumin (3.5-5.0) g/dL Arterial Blood Potassium (3.4-4.5) mmol/L Arterial Blood Glucose (75-99) mg/dL Crossmatch 08/22/23 08/22/23 08/22/23 Range/Units 20:51 20:52 22:02 WBC 11.0 H (3.8-10.6) k/uL RBC 4.04 L (4.30-5.90) m/uL Hgb 12.2 L (13.0-17.5) gm/dL Hct 35.3 L (39.0-53.0) % Neutrophils # 9.8 H (1.3-7.7) k/uL Lymphocytes # 0.7 L (1.0-4.8) k/uL PT (10.0-12.5) sec INR (<1.2) ABG pH (7.35-7.45) ABG pCO2 (35-45) mmHg ABG pO2 (83-108) mmHg ABG HCO3 (21-25) mmol/L ABG Total CO2 (19-24) mmol/L ABG O2 Saturation (94-97) % ABG Hematocrit (34.0-46.0) % ABG Sodium (135-146) mmol/L ABG Potassium (3.4-4.5) mmol/L ABG Ionized Calcium (4.5-5.3) mg/dL ABG Glucose (75-99) mg/dL ABG Lactic Acid (0.5-1.6) mmol/L Hemoglobin (13.0-17.5) gm/dL Sodium (137-145) mmol/L Carbon Dioxide (22-30) mmol/L Creatinine (0.66-1.25) mg/dL Glucose (74-99) mg/dL POC Glucose (mg/dL) 145 H 146 H (70-110) mg/dL Calcium (8.4-10.2) mg/dL Ionized Calcium Uriel (4.5-5.3) mg/dL ALT (4-49) U/L Alkaline Phosphatase (38-126) U/L Total Protein (6.3-8.2) g/dL Albumin (3.5-5.0) g/dL Arterial Blood Potassium (3.4-4.5) mmol/L Arterial Blood Glucose (75-99) mg/dL Crossmatch 08/22/23 08/23/23 08/23/23 Range/Units 23:00 00:02 01:05 WBC (3.8-10.6) k/uL RBC (4.30-5.90) m/uL Hgb (13.0-17.5) gm/dL Hct (39.0-53.0) % Neutrophils # (1.3-7.7) k/uL Lymphocytes # (1.0-4.8) k/uL PT (10.0-12.5) sec INR (<1.2) ABG pH (7.35-7.45) ABG pCO2 (35-45) mmHg ABG pO2 (83-108) mmHg ABG HCO3 (21-25) mmol/L ABG Total CO2 (19-24) mmol/L ABG O2 Saturation (94-97) % ABG Hematocrit (34.0-46.0) % ABG Sodium (135-146) mmol/L ABG Potassium (3.4-4.5) mmol/L ABG Ionized Calcium (4.5-5.3) mg/dL ABG Glucose (75-99) mg/dL ABG Lactic Acid (0.5-1.6) mmol/L Hemoglobin (13.0-17.5) gm/dL Sodium (137-145) mmol/L Carbon Dioxide (22-30) mmol/L Creatinine (0.66-1.25) mg/dL Glucose (74-99) mg/dL POC Glucose (mg/dL) 140 H 133 H 129 H (70-110) mg/dL Calcium (8.4-10.2) mg/dL Ionized Calcium Uriel (4.5-5.3) mg/dL ALT (4-49) U/L Alkaline Phosphatase (38-126) U/L Total Protein (6.3-8.2) g/dL Albumin (3.5-5.0) g/dL Arterial Blood Potassium (3.4-4.5) mmol/L Arterial Blood Glucose (75-99) mg/dL Crossmatch 08/23/23 08/23/23 08/23/23 Range/Units 02:02 03:00 04:00 WBC 11.3 H (3.8-10.6) k/uL RBC 3.99 L (4.30-5.90) m/uL Hgb 12.1 L (13.0-17.5) gm/dL Hct 34.7 L (39.0-53.0) % Neutrophils # 9.2 H (1.3-7.7) k/uL Lymphocytes # (1.0-4.8) k/uL PT (10.0-12.5) sec INR (<1.2) ABG pH (7.35-7.45) ABG pCO2 (35-45) mmHg ABG pO2 (83-108) mmHg ABG HCO3 (21-25) mmol/L ABG Total CO2 (19-24) mmol/L ABG O2 Saturation (94-97) % ABG Hematocrit (34.0-46.0) % ABG Sodium (135-146) mmol/L ABG Potassium (3.4-4.5) mmol/L ABG Ionized Calcium (4.5-5.3) mg/dL ABG Glucose (75-99) mg/dL ABG Lactic Acid (0.5-1.6) mmol/L Hemoglobin (13.0-17.5) gm/dL Sodium (137-145) mmol/L Carbon Dioxide (22-30) mmol/L Creatinine (0.66-1.25) mg/dL Glucose (74-99) mg/dL POC Glucose (mg/dL) 126 H 116 H (70-110) mg/dL Calcium (8.4-10.2) mg/dL Ionized Calcium Uriel (4.5-5.3) mg/dL ALT (4-49) U/L Alkaline Phosphatase (38-126) U/L Total Protein (6.3-8.2) g/dL Albumin (3.5-5.0) g/dL Arterial Blood Potassium (3.4-4.5) mmol/L Arterial Blood Glucose (75-99) mg/dL Crossmatch 08/23/23 08/23/23 08/23/23 Range/Units 04:00 04:01 05:00 WBC (3.8-10.6) k/uL RBC (4.30-5.90) m/uL Hgb (13.0-17.5) gm/dL Hct (39.0-53.0) % Neutrophils # (1.3-7.7) k/uL Lymphocytes # (1.0-4.8) k/uL PT (10.0-12.5) sec INR (<1.2) ABG pH (7.35-7.45) ABG pCO2 (35-45) mmHg ABG pO2 (83-108) mmHg ABG HCO3 (21-25) mmol/L ABG Total CO2 (19-24) mmol/L ABG O2 Saturation (94-97) % ABG Hematocrit (34.0-46.0) % ABG Sodium (135-146) mmol/L ABG Potassium (3.4-4.5) mmol/L ABG Ionized Calcium (4.5-5.3) mg/dL ABG Glucose (75-99) mg/dL ABG Lactic Acid (0.5-1.6) mmol/L Hemoglobin (13.0-17.5) gm/dL Sodium 134 L (137-145) mmol/L Carbon Dioxide (22-30) mmol/L Creatinine (0.66-1.25) mg/dL Glucose 108 H (74-99) mg/dL POC Glucose (mg/dL) 114 H 131 H (70-110) mg/dL Calcium 8.2 L (8.4-10.2) mg/dL Ionized Calcium Uriel (4.5-5.3) mg/dL ALT 63 H (4-49) U/L Alkaline Phosphatase 34 L (38-126) U/L Total Protein 5.8 L (6.3-8.2) g/dL Albumin (3.5-5.0) g/dL Arterial Blood Potassium (3.4-4.5) mmol/L Arterial Blood Glucose (75-99) mg/dL Crossmatch 08/23/23 08/23/23 08/23/23 Range/Units 06:10 06:53 08:53 WBC (3.8-10.6) k/uL RBC (4.30-5.90) m/uL Hgb (13.0-17.5) gm/dL Hct (39.0-53.0) % Neutrophils # (1.3-7.7) k/uL Lymphocytes # (1.0-4.8) k/uL PT (10.0-12.5) sec INR (<1.2) ABG pH (7.35-7.45) ABG pCO2 (35-45) mmHg ABG pO2 (83-108) mmHg ABG HCO3 (21-25) mmol/L ABG Total CO2 (19-24) mmol/L ABG O2 Saturation (94-97) % ABG Hematocrit (34.0-46.0) % ABG Sodium (135-146) mmol/L ABG Potassium (3.4-4.5) mmol/L ABG Ionized Calcium (4.5-5.3) mg/dL ABG Glucose (75-99) mg/dL ABG Lactic Acid (0.5-1.6) mmol/L Hemoglobin (13.0-17.5) gm/dL Sodium (137-145) mmol/L Carbon Dioxide (22-30) mmol/L Creatinine (0.66-1.25) mg/dL Glucose (74-99) mg/dL POC Glucose (mg/dL) 128 H 123 H 116 H (70-110) mg/dL Calcium (8.4-10.2) mg/dL Ionized Calcium Uriel (4.5-5.3) mg/dL ALT (4-49) U/L Alkaline Phosphatase (38-126) U/L Total Protein (6.3-8.2) g/dL Albumin (3.5-5.0) g/dL Arterial Blood Potassium (3.4-4.5) mmol/L Arterial Blood Glucose (75-99) mg/dL Crossmatch Assessment and Plan Plan: Severe triple-vessel coronary artery disease, with anticipated bypass surgery, 08/22/2023. Patient underwent three-vessel bypass surgery, off pump and the patient is currently postop day #1. Doing well. Hemodynamically stable. Currently on a combination of Cardizem drip and off nitroglycerin drip. The patient is hemodynamically stable. Cardiac output is stable. The [place]-Phuc catheter has been removed and the patient is currently hemodynamically stable Postthoracotomy, currently extubated on 2 L of oxygen by nasal cannula. Output from the chest tubes are minimal and there is no evidence of air leak. Chest x- ray shows postsurgical changes. No pneumothorax. Previous PCI, 2000. History of hypertension. History of hyperlipidemia. Former nicotine dependence. Mild COPD, with an FEV1 percent at 75% of predicted. Hyperglycemia, currently on insulin drip at 2.5 units an hour Plan: Continue using the senna spirometer [place]-Phuc catheter has been removed Monitor the output from the chest tubes Monitor the air leak Continue the Cardizem drip and this will be continued until no and then stopped Patient is off nitroglycerin Patient is currently on aspirin, Plavix, Lipitor, and metoprolol at a dose of 25 mg twice a day We'll continue to follow
[2023-08-23 10:21] LABS: Glucose,Whole Blood 133 mg/dL (70-110)
[2023-08-23] MEDS: amLODIPine 2.5 MG TAB PO SCH (11:15)
[2023-08-23 11:27] LABS: Glucose,Whole Blood 127 mg/dL (70-110)
[2023-08-23 11:52] VITALS: BMI 32.3
[2023-08-23 13:05] LABS: Glucose,Whole Blood 140 mg/dL (70-110)
[2023-08-23 14:02] LABS: Glucose,Whole Blood 148 mg/dL (70-110)
[2023-08-23 15:07] LABS: Glucose,Whole Blood 124 mg/dL (70-110)
[2023-08-23 16:10] LABS: Glucose,Whole Blood 130 mg/dL (70-110)
[2023-08-23 18:06] LABS: Glucose,Whole Blood 150 mg/dL (70-110)
[2023-08-23] MEDS: SENNOSIDES-DOCUSATE SODIUM 1 EACH TAB PO SCH (19:49)
[2023-08-23] MEDS: LACTATED RINGERS 1,000 ML IV SCH (19:50)
[2023-08-23] MEDS: INSULIN REGULAR 100 UNIT in SODIUM CHLORIDE 0.9% 100 ML IV SCH (20:19)
[2023-08-23 20:20] LABS: Glucose,Whole Blood 126 mg/dL (70-110)
[2023-08-23 21:53] LABS: Glucose,Whole Blood 133 mg/dL (70-110)
[2023-08-23 23:53] LABS: Glucose,Whole Blood 130 mg/dL (70-110)
[2023-08-24 02:04] LABS: Glucose,Whole Blood 117 mg/dL (70-110)
[2023-08-24 03:01] LABS: Glucose,Whole Blood 116 mg/dL (70-110)
[2023-08-24 04:10] LABS: Glucose,Whole Blood 139 mg/dL (70-110)
[2023-08-24] MEDS: HYDROcodone/APAP 5-325MG 1 EACH TAB PO PRN ×2 (04:14→20:38)
[2023-08-24 04:26] LABS: Ionized Calcium 4.7 mg/dL (4.5-5.3)
[2023-08-24 04:35] LABS: ALT 46 U/L (4-49); AST 45 U/L (17-59); African American GFR (CKD) >90 (>60 ml/min/1.73 sqM); Albumin 3.3 g/dL (3.5-5.0); Alkaline Phosphatase 41 U/L (38-126); Anion Gap 11 mmol/L; Blood Urea Nitrogen 12 mg/dL (9-20); Calcium 8.3 mg/dL (8.4-10.2); Carbon Dioxide 22 mmol/L (22-30); Chloride 101 mmol/L (98-107); Glucose 132 mg/dL (74-99); Non-African American GFR(CKD) >90 (>60 ml/min/1.73 sqM); Potassium 4.1 mmol/L (3.5-5.1); Sodium 134 mmol/L (137-145); Total Bilirubin 0.9 mg/dL (0.2-1.3); Total Protein 5.6 g/dL (6.3-8.2)
[2023-08-24 04:55] LABS: Basophils % (A) 0 %; Eosinophils # (A) 0.1 k/uL (0-0.7); Eosinophils % (A) 2 %; HCT 33.1 % (39.0-53.0); HGB 11.3 gm/dL (13.0-17.5); Lymphocytes # (A) 1.3 k/uL (1.0-4.8); Lymphocytes % (A) 14 %; MCH 30.4 pg (25.0-35.0); MCHC 34.1 g/dL (31.0-37.0); MCV 89.1 fL (80.0-100.0); Mean Platelet Volume 7.3; Monocytes # (A) 0.5 k/uL (0-1.0); Monocytes % (A) 6 %; Neutrophils # (A) 7.1 k/uL (1.3-7.7); Neutrophils % (A) 77 %; Platelet Count 147 k/uL (150-450); RBC 3.71 m/uL (4.30-5.90); RDW 13.5 % (11.5-15.5); WBC 9.2 k/uL (3.8-10.6)
[2023-08-24] MEDS: KETOROLAC 15 MG/ML 1 ML VIAL IVP SCH ×3 (06:11→18:02)
[2023-08-24] MEDS: PANTOPRAZOLE 40 MG TABLET PO SCH (06:11)
[2023-08-24 06:21] LABS: Glucose,Whole Blood 132 mg/dL (70-110)
--- NOTE | 2023-08-24 07:26 | P.PN ---
Subjective Progress Note Date: 08/24/23 PROGRESS NOTE The patient is a 57-year-old male who underwent cardiac catheterization and was found to have severe obstructive disease, underwent coronary artery bypass grafting yesterday by Dr. Walls, he received a LANE to the LAD and left radial to the intermediate and to the OM. He is extubated, sitting up in the chair, in sinus mechanism, hemodynamically stable. He has a prior history of CAD stenting of the right coronary artery and the LAD in 2000. Preoperatively his systolic function was preserved. He has a prior history of smoking, hypertension and hyperlipidemia. He is complaining of chest wall tenderness and mild cough August 24: The patient feels better today, he has less chest wall discomfort in his breathing is stable. He denies any dizziness or palpitations, no nausea. He is tolerating oral medication. He has ambulated and has been using his incentive spirometry. He continues to be in sinus mechanism. Is x-ray shows effusion on the left side Medications: Aspirin, Lipitor 40 mg daily, amlodipine 2.5 mg daily, Plavix 75 mg daily, metoprolol tartrate 50 mg twice a day PHYSICAL EXAMINATION: Blood pressure 138/87 heart rate 92 LUNGS: Few scattered rhonchi at the bases HEART: Regular rate and rhythm, S1, S2. No S3. No systolic murmur, no rub ABDOMEN: Soft, nontender, no organomegaly EXTREMETIES: No edema LAB: Hemoglobin 7.3, BUN 12, creatinine 0.82 IMPRESSION: 1. Status post CABG 2. History of prior stenting 3. Hyperlipidemia 4. Hypertension 5. Prior history of smoking PLAN: 1. Continue present therapy 2. Follow blood pressure and if stable add MADELAINE inhibitor 3. Incentive spirometry 4. Increase physical activity Objective - Vital Signs Vital signs: Vital Signs Temp 98.9 F 08/24/23 04:00 Pulse 92 08/24/23 07:00 Resp 19 08/24/23 07:00 BP 138/87 08/24/23 07:00 Pulse Ox 94 L 08/24/23 07:00 FiO2 50 08/22/23 17:30 Intake & Output 08/23/23 08/24/23 08/24/23 18:59 06:59 18:59 Intake Total 1118.232 462.763 36 Output Total 1400 1940 130 Balance -281.768 -1477.237 -94 Weight 96.3 kg 96.3 kg Intake: IV 502 432 36 Diltiazem 125 mg In 20 Sodium Chloride 0.9% 100 ml @ 5 MG/HR 5 mls/hr IV .Q24H [facility] Rx#:[id number] Lactated Ringers 1,000 ml 410 360 30 @ 20 mls/hr IV .Q24H [facility] Rx#:[id number] Pressure Bags 0.9/ CO/CI 72 72 6 Intake, IV Titration 46.232 30.763 Amount Insulin Regular 100 unit 46.232 30.763 In Sodium Chloride 0.9% 100 ml @ Per Protocol IV .Q0M [facility] Rx#:[id number] Oral 570 Output: Chest Tube Drainage 410 290 80 Chest Tube Left Pleural/ 410 290 80 Mediastinal Urine 990 1650 50 Other: Voiding Method Indwelling Catheter Indwelling Catheter ABP, PAP, CO, CI - Last Documented Arterial Blood Pressure 123/49 Pulmonary Artery Pressure 33/10 Cardiac Output 6.1 Cardiac Index 3 - Labs CBC & Chem 7: 08/24/23 04:10 08/24/23 04:10 Labs: Abnormal Lab Results - Last 24 Hours (Table) 08/23/23 08/23/23 08/23/23 Range/Units 08:53 10:20 11:26 RBC (4.30-5.90) m/uL Hgb (13.0-17.5) gm/dL Hct (39.0-53.0) % Plt Count (150-450) k/uL Sodium (137-145) mmol/L Glucose (74-99) mg/dL POC Glucose (mg/dL) 116 H 133 H 127 H (70-110) mg/dL Calcium (8.4-10.2) mg/dL Total Protein (6.3-8.2) g/dL Albumin (3.5-5.0) g/dL 08/23/23 08/23/23 08/23/23 Range/Units 13:03 14:01 15:06 RBC (4.30-5.90) m/uL Hgb (13.0-17.5) gm/dL Hct (39.0-53.0) % Plt Count (150-450) k/uL Sodium (137-145) mmol/L Glucose (74-99) mg/dL POC Glucose (mg/dL) 140 H 148 H 124 H (70-110) mg/dL Calcium (8.4-10.2) mg/dL Total Protein (6.3-8.2) g/dL Albumin (3.5-5.0) g/dL 08/23/23 08/23/23 08/23/23 Range/Units 16:09 18:05 20:18 RBC (4.30-5.90) m/uL Hgb (13.0-17.5) gm/dL Hct (39.0-53.0) % Plt Count (150-450) k/uL Sodium (137-145) mmol/L Glucose (74-99) mg/dL POC Glucose (mg/dL) 130 H 150 H 126 H (70-110) mg/dL Calcium (8.4-10.2) mg/dL Total Protein (6.3-8.2) g/dL Albumin (3.5-5.0) g/dL 08/23/23 08/23/23 08/24/23 Range/Units 21:50 23:50 02:02 RBC (4.30-5.90) m/uL Hgb (13.0-17.5) gm/dL Hct (39.0-53.0) % Plt Count (150-450) k/uL Sodium (137-145) mmol/L Glucose (74-99) mg/dL POC Glucose (mg/dL) 133 H 130 H 117 H (70-110) mg/dL Calcium (8.4-10.2) mg/dL Total Protein (6.3-8.2) g/dL Albumin (3.5-5.0) g/dL 08/24/23 08/24/23 08/24/23 Range/Units 03:00 04:08 04:10 RBC 3.71 L (4.30-5.90) m/uL Hgb 11.3 L (13.0-17.5) gm/dL Hct 33.1 L (39.0-53.0) % Plt Count 147 L (150-450) k/uL Sodium (137-145) mmol/L Glucose (74-99) mg/dL POC Glucose (mg/dL) 116 H 139 H (70-110) mg/dL Calcium (8.4-10.2) mg/dL Total Protein (6.3-8.2) g/dL Albumin (3.5-5.0) g/dL 08/24/23 08/24/23 Range/Units 04:10 06:18 RBC (4.30-5.90) m/uL Hgb (13.0-17.5) gm/dL Hct (39.0-53.0) % Plt Count (150-450) k/uL Sodium 134 L (137-145) mmol/L Glucose 132 H (74-99) mg/dL POC Glucose (mg/dL) 132 H (70-110) mg/dL Calcium 8.3 L (8.4-10.2) mg/dL Total Protein 5.6 L (6.3-8.2) g/dL Albumin 3.3 L (3.5-5.0) g/dL
[2023-08-24 08:12] LABS: Glucose,Whole Blood 218 mg/dL (70-110)
[2023-08-24] MEDS: CLOPIDOGREL 75 MG TAB PO SCH (08:17)
[2023-08-24] MEDS: ASPIRIN 325 MG TAB PO SCH (08:17)
[2023-08-24] MEDS: ATORVASTATIN 40 MG TAB PO SCH (08:17)
[2023-08-24] MEDS: MUPIROCIN 2% OINT 22 GM TUBE NASAL SCH ×2 (08:18→20:37)
[2023-08-24] MEDS: METOPROLOL TARTRATE 50 MG TAB PO SCH ×2 (08:18→20:38)
[2023-08-24] MEDS: HEPARIN SODIUM,PORCINE 5,000 UNIT/ML 1 ML VIAL SQ SCH ×2 (08:18→17:59)
[2023-08-24] MEDS: IPRATROPIUM-ALBUTEROL 3 ML NEB INHALATION SCH ×4 (08:19→20:56)
--- NOTE | 2023-08-24 08:40 | XR ---
EXAMINATION TYPE: XR chest 1V portable DATE OF EXAM: 08/24/2023 COMPARISON: 08/23/2023 HISTORY: Postop TECHNIQUE: Single frontal view of the chest is obtained. FINDINGS: Left-sided chest tubes are seen and there is median sternotomy findings. The heart is enla rged as of bilateral consolidation. No sizable pneumothorax. [place]-Phuc catheter has been removed. Med iastinal drain noted. Mild underlying venous congestion. IMPRESSION: 1. Stable postoperative change with bilateral consolidation and small effusion. Correlate for mild ve nous congestion.
--- NOTE | 2023-08-24 09:33 | P.PN ---
Subjective Progress Note Date: 08/24/23 Principal diagnosis: Coronary artery disease. Past medical history significant for myocardial infarction and PCI in 2000, hypertension, hyperlipidemia, previous tobacco dependence. 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 POD #2 off-pump coronary artery bypass grafting 3 with left internal mammary artery to the left anterior descending artery, sequential graft left radial artery to the intermediate and obtuse marginal coronary arteries, endovascular harvest left radial artery, endovascular harvest right greater saphenous vein from the ankle to the groin, ligation of the left atrial appendage with a 40 mm AtriCure clip, intraoperative transesophageal echocardiogram by anesthesia. Postoperative acute blood loss anemia, expected given hemodilution. The patient was seen and examined in follow-up today 08/24/2023 at his bedside in the intensive care unit. He is sitting up to the bedside chair, is awake, alert, oriented 3 and in no acute distress. Oxygen saturations are 97% on 2 L nasal cannula and he is achieving 1000 mL on his incentive spirometry up encouragement. He remains hemodynamically stable and is currently on no inotropic or pressor support. Right IJ cordis remains in place with continuous CVP monitoring, current CVP pressure is 10 mmHg. Bedside telemetry showing normal sinus rhythm heart rate 93 BPM. He remains on amlodipine 2.5 mg by mouth daily for radial artery spasm prophylaxis. Mediastinal and left pleural chest tubes remained in place to low continuous wall suction -20 cm H2O. No air leak is present. Draining thin serosanguineous drainage with 220 mL output in the last 8 hours and 650 mL output in the last 24 hours. Laboratory and chest x-ray results reviewed. Objective - Vital Signs Vital signs: Vital Signs Temp 98.3 F 08/24/23 08:00 Pulse 92 08/24/23 08:31 Resp 20 08/24/23 08:00 BP 131/76 08/24/23 08:00 Pulse Ox 93 L 08/24/23 08:00 FiO2 50 08/22/23 17:30 Intake & Output 08/23/23 08/24/23 08/24/23 18:59 06:59 18:59 Intake Total 1118.232 462.763 288.093 Output Total 1400 1940 255 Balance -281.768 -1477.237 33.093 Weight 96.3 kg 96.3 kg Intake: IV 502 432 72 Diltiazem 125 mg In 20 Sodium Chloride 0.9% 100 ml @ 5 MG/HR 5 mls/hr IV .Q24H [facility] Rx#:[id number] Lactated Ringers 1,000 ml 410 360 60 @ 20 mls/hr IV .Q24H [facility] Rx#:[id number] Pressure Bags 0.9/ CO/CI 72 72 12 Intake, IV Titration 46.232 30.763 16.093 Amount Insulin Regular 100 unit 46.232 30.763 16.093 In Sodium Chloride 0.9% 100 ml @ Per Protocol IV .Q0M [facility] Rx#:[id number] Oral 570 200 Output: Chest Tube Drainage 410 290 80 Chest Tube Left Pleural/ 410 290 80 Mediastinal Urine 990 1650 175 Other: Voiding Method Indwelling Catheter Indwelling Catheter Indwelling Catheter ABP, PAP, CO, CI - Last Documented Arterial Blood Pressure 123/49 Pulmonary Artery Pressure 33/10 Cardiac Output 6.1 Cardiac Index 3 - Exam CONSTITUTIONAL: Sitting up to the bedside chair in the intensive care unit, appears comfortable, cooperative, no apparent acute distress. HEENT: Neck is supple, no JVD, no lymphadenopathy. Right IJ Cordis in place and functioning. RESPIRATORY: Lungs sounds essentially clear throughout, diminished to his bilateral bases, with few scattered crackles to his left lower lobe. Respirations are symmetrical and nonlabored. Currently on 2 L nasal cannula with oxygen saturations 97%. Able to achieve 1000 mL on his incentive spirometry. Strong cough. CARDIOVASCULAR: Regular rhythm and rate. S1 and S2 present, negative for S3, gallop or murmur. Sternum is stable. Palpable peripheral pulses bilaterally, No edema to his bilateral lower extremities. No calf pain or tenderness noted. Heart hugger in place with patient demonstrating appropriate use. Knee-high ARIELLE hose and sequential compression devices in place to his bilateral lower extremities. GASTROINTESTINAL: Abdomen soft, nontender, and slightly distended. Active bowel sounds present 4 quadrants. Tolerating diet. Denies flatus. No guarding or rigidity. GENITOURINARY: Santiago present draining clear, yellow urine. Urine output 1050 mL in the last 8 hours. INTEGUMENTARY: Skin is warm and dry with no evidence of clubbing or cyanosis. Midline sternal incision clean dry and well approximated, covered with dry intact dressing. Right lower extremity EVH sites well approximated without redness or drainage. Left arm radial artery harvest sites clean, dry and approximated. No drainage or redness is present. NEUROLOGIC: Cranial nerves II through XII intact. No focal deficits. MUSKULOSKELETAL: Able to move all extremities, strength equal bilaterally, generalized weakness. PSYCHIATRIC: Alert and oriented to person place and time, appropriate affect, intact judgment and insight. INVASIVE LINES AND TUBES: Mediastinal/left pleural chest tubes present and connected to low continuous wall suction, no air leaks present. Mediastinal/left pleural chest tubes with 220 mL of thin serosanguineous drainage overnight, 650 mL output in the last 24 hours. Right internal jugular Cordis, right radial arterial line present. Last CVP 10 mmHg. - Allied health notes Allied health notes reviewed: nursing - Labs CBC & Chem 7: 08/24/23 04:10 08/24/23 04:10 Labs: Abnormal Lab Results - Last 24 Hours (Table) 08/23/23 08/23/23 08/23/23 Range/Units 10:20 11:26 13:03 RBC (4.30-5.90) m/uL Hgb (13.0-17.5) gm/dL Hct (39.0-53.0) % Plt Count (150-450) k/uL Sodium (137-145) mmol/L Glucose (74-99) mg/dL POC Glucose (mg/dL) 133 H 127 H 140 H (70-110) mg/dL Calcium (8.4-10.2) mg/dL Total Protein (6.3-8.2) g/dL Albumin (3.5-5.0) g/dL 08/23/23 08/23/23 08/23/23 Range/Units 14:01 15:06 16:09 RBC (4.30-5.90) m/uL Hgb (13.0-17.5) gm/dL Hct (39.0-53.0) % Plt Count (150-450) k/uL Sodium (137-145) mmol/L Glucose (74-99) mg/dL POC Glucose (mg/dL) 148 H 124 H 130 H (70-110) mg/dL Calcium (8.4-10.2) mg/dL Total Protein (6.3-8.2) g/dL Albumin (3.5-5.0) g/dL 08/23/23 08/23/23 08/23/23 Range/Units 18:05 20:18 21:50 RBC (4.30-5.90) m/uL Hgb (13.0-17.5) gm/dL Hct (39.0-53.0) % Plt Count (150-450) k/uL Sodium (137-145) mmol/L Glucose (74-99) mg/dL POC Glucose (mg/dL) 150 H 126 H 133 H (70-110) mg/dL Calcium (8.4-10.2) mg/dL Total Protein (6.3-8.2) g/dL Albumin (3.5-5.0) g/dL 08/23/23 08/24/23 08/24/23 Range/Units 23:50 02:02 03:00 RBC (4.30-5.90) m/uL Hgb (13.0-17.5) gm/dL Hct (39.0-53.0) % Plt Count (150-450) k/uL Sodium (137-145) mmol/L Glucose (74-99) mg/dL POC Glucose (mg/dL) 130 H 117 H 116 H (70-110) mg/dL Calcium (8.4-10.2) mg/dL Total Protein (6.3-8.2) g/dL Albumin (3.5-5.0) g/dL 08/24/23 08/24/23 08/24/23 Range/Units 04:08 04:10 04:10 RBC 3.71 L (4.30-5.90) m/uL Hgb 11.3 L (13.0-17.5) gm/dL Hct 33.1 L (39.0-53.0) % Plt Count 147 L (150-450) k/uL Sodium 134 L (137-145) mmol/L Glucose 132 H (74-99) mg/dL POC Glucose (mg/dL) 139 H (70-110) mg/dL Calcium 8.3 L (8.4-10.2) mg/dL Total Protein 5.6 L (6.3-8.2) g/dL Albumin 3.3 L (3.5-5.0) g/dL 08/24/23 08/24/23 Range/Units 06:18 08:11 RBC (4.30-5.90) m/uL Hgb (13.0-17.5) gm/dL Hct (39.0-53.0) % Plt Count (150-450) k/uL Sodium (137-145) mmol/L Glucose (74-99) mg/dL POC Glucose (mg/dL) 132 H 218 H (70-110) mg/dL Calcium (8.4-10.2) mg/dL Total Protein (6.3-8.2) g/dL Albumin (3.5-5.0) g/dL - Imaging and Cardiology Chest x-ray: report reviewed, image reviewed Assessment and Plan Assessment: Coronary artery disease, complete occlusion of the right coronary artery, 70% ramus stenosis, proximal LAD stenosis 95%, status post three-vessel arterial CABG Previous myocardial infarction and PCI in 2000 Hypertension Hyperlipidemia, triglycerides 383, cholesterol 242, LDL 129 Previous tobacco dependence, preoperative FEV1 75% of predicted 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 Will increase metoprolol tartrate to 50 mg by mouth twice a day. Continue amlodipine 2.5 mg by mouth daily with hold parameters for radial artery spasm prophylaxis. Wean O2 as tolerated. Encourage incentive spirometry use 10 times every hour while awake. Bronchodilators per pulmonology. Increase activity, ambulate as tolerated. PT/OT/cardiac rehab following. Will monitor daily labs and chest x-rays. Electrolyte replacement per protocol. GI/DVT prophylaxis. Pain control per current medication regimen. Continue Toradol additional pain control. Insulin management per internal medicine service. Patient is not diabetic, hemoglobin A1c 5.9%. Needs to remain on insulin drip for 48 hours, then may transition to subcutaneous per protocol. Discontinue right IJ Cordis. Remove right radial arterial line. Remove mediastinal chest tube, keep left pleural chest tube for another 24 hours, monitor output. Remove Santiago catheter, continue to record strict accurate intake and output. Me bladder scan every 6 hours and when necessary postvoid residual, if greater than or equal to 300 mL of urine may straight cath. Daily weights. Continue nasal mupirocin for 5 days total. Transfer orders will be placed to the third floor cardiac stepdown unit. More recommendations to follow based on patient's clinical course. Time with Patient: Greater than 30
[2023-08-24 09:45] LABS: Glucose,Whole Blood 158 mg/dL (70-110)
--- NOTE | 2023-08-24 10:35 | P.PN ---
Subjective Progress Note Date: 08/24/23 On 08/22/2023, seeing the patient after he arrived to the intensive care unit following his coronary artery bypass surgery. The patient underwent an off pump 3 vessel bypass surgery. He underwent LANE to LAD and left radial to intermediate and OM. The patient is currently on propofol which is running at 30 mcg/kg/m. His 1 cm a mechanical ventilator. He is on assist control mode at a rate of 12, tidal volume of 550, FiO2 was dropped down to 60% and PEEP of 5. The blood gas showed a pH of 7.43 with a pCO2 of 46 and pO2 of 73 and this was the most recent blood gases. The chest x-ray showed adequate expansion of both lungs. The patient has a left pleural and a mediastinal chest tube. No evidence of any pneumothorax. The Manor-Phuc is in a good location. His cardiac output is at 5.5 with an index of 2.7. The patient was given IV albumin immediately after he arrived to the ICU. The patient is currently on nitroglycerin drip at 5 mcg/m and Cardizem drip at 5 mg an hour. The output from the chest tubes are minimal at this point in time and the patient has no evidence of any air leak. Patient is on no pressors., Comfortable. Cardiac rhythm is sinus. No other significant events . Urine output is adequate. The labs from today. Showed a sodium level of 136, BUN is at 40 with a creatinine of 0.63 and a serum bicarb is at 21. On 08/23/2023, the patient is extubated and patient is currently on oxygen at 2 L. The chest x-ray showed no acute abnormalities. The lungs are adequately expanded. Chest tubes are in place. No evidence of any pneumothorax. The patient has a left pleural and a mediastinal chest tube. There is no evidence of air leak. Output from the chest tube has been in the order of 1000 mL since arrival from the operating room. Noted the patient's weaning process was quite straightforward. No major respiratory issues. He had excellent weaning parameters. He was weaned off the mechanical ventilator and he was extubated without any major difficulties. The Manor-Phuc catheters were removed. The most recent cardiac output is at 6.1 with an index of 3.0. Is off the nitroglycerin drip. Cardizem drip will be discontinued at the later stage today. The patient is also on insulin drip at 2.5 units an hour with adequate blood sugar control. The cardiac rhythm is sinus at the rate of 80. He is awake, alert, communicatin g, burping, having some discomfort across his chest at the surgical site. On 08/24/2023, the patient is on oxygen at 2 L/m nasal cannula. Chest is a bit removed. The patient using the incentive spirometer. Pulling more than 2000. No respiratory distress. Chest x-ray from today showing adequate expansion of both lungs. There is no evidence of any pneumothorax. Sternal wires are in place and there is some post thoracotomy changes. The patient has some small effusion/atelectatic changes in the left lung base. Some minor platelike atelectasis on the right. I do not appreciate any pneumothorax at this point in time. Also, the bili was as of 9.2 with a hemoglobin of 11.3 and a platelet count of 147, BUN is 12 with a creatinine of 0.8 and a sodium level is at 134. Remains on aspirin. Remains on Plavix. Remains on metoprolol 50 mg twice a day. Remains on Norvasc 2.5 mg by mouth daily. Remains on Lipitor 40 mg by mouth daily. Insulin drip is still running at the rate of 4.5 units an hour. Objective - Vital Signs Vital signs: Vital Signs Temp 98.3 F 08/24/23 08:00 Pulse 84 08/24/23 10:00 Resp 19 08/24/23 10:00 BP 146/75 08/24/23 10:00 Pulse Ox 94 L 08/24/23 10:00 FiO2 50 08/22/23 17:30 Intake & Output 08/23/23 08/24/23 08/24/23 18:59 06:59 18:59 Intake Total 1118.232 462.763 571.052 Output Total 1400 1940 275 Balance -281.768 -1477.237 296.052 Weight 96.3 kg 96.3 kg Intake: IV 502 432 144 Diltiazem 125 mg In 20 Sodium Chloride 0.9% 100 ml @ 5 MG/HR 5 mls/hr IV .Q24H [facility] Rx#:[id number] Lactated Ringers 1,000 ml 410 360 120 @ 20 mls/hr IV .Q24H [facility] Rx#:[id number] Pressure Bags 0.9/ CO/CI 72 72 24 Intake, IV Titration 46.232 30.763 27.052 Amount Insulin Regular 100 unit 46.232 30.763 27.052 In Sodium Chloride 0.9% 100 ml @ Per Protocol IV .Q0M [facility] Rx#:[id number] Oral 570 400 Output: Chest Tube Drainage 410 290 100 Chest Tube Left Pleural/ 410 290 100 Mediastinal Urine 990 1650 175 Other: Voiding Method Indwelling Catheter Indwelling Catheter Indwelling Catheter ABP, PAP, CO, CI - Last Documented Arterial Blood Pressure 123/49 Pulmonary Artery Pressure 33/10 Cardiac Output 6.1 Cardiac Index 3 - Exam Gen. appearance, calm and comfortable, sedated, not in acute distress and the patient is on 2 L of oxygen nasal cannula Head exam was generally normal. There was no scleral icterus or corneal arcus. Mucous membranes were moist. Neck was supple and without jugular venous distension, thyromegaly, or carotid bruits. Carotids were easily palpable bilaterally. There was no adenopathy. The patient has a right IJ Cordis and the Manor-Phuc has been removed Lungs were clear to auscultation and percussion, and with normal diaphragmatic excursion. No wheezes or rales were noted. Cardiac exam revealed the PMI to be normally situated and sized. The rhythm was regular and no extrasystoles were noted during several minutes of auscultation. The first and second heart sounds were normal and physiologic splitting of the second heart sound was noted. There were no murmurs, rubs, clicks, or gallops. Abdominal exam revealed normal bowel sounds. The abdomen was soft, non-tender, and without masses, organomegaly, or appreciable enlargement of the abdominal aorta. Examination of the extremities revealed easily palpable radial, femoral and pedal pulses. There was no cyanosis, clubbing or edema. Examination of the skin revealed no evidence of significant rashes, suspicious appearing nevi or other concerning lesions. Neurologically, Neurologically, the patient is awake and alert and the patient does not have any focal neurological deficit. Cranial nerves are essentially intact. - Labs CBC & Chem 7: 08/24/23 04:10 08/24/23 04:10 Labs: Abnormal Lab Results - Last 24 Hours (Table) 08/23/23 08/23/23 08/23/23 Range/Units 11:26 13:03 14:01 RBC (4.30-5.90) m/uL Hgb (13.0-17.5) gm/dL Hct (39.0-53.0) % Plt Count (150-450) k/uL Sodium (137-145) mmol/L Glucose (74-99) mg/dL POC Glucose (mg/dL) 127 H 140 H 148 H (70-110) mg/dL Calcium (8.4-10.2) mg/dL Total Protein (6.3-8.2) g/dL Albumin (3.5-5.0) g/dL 08/23/23 08/23/23 08/23/23 Range/Units 15:06 16:09 18:05 RBC (4.30-5.90) m/uL Hgb (13.0-17.5) gm/dL Hct (39.0-53.0) % Plt Count (150-450) k/uL Sodium (137-145) mmol/L Glucose (74-99) mg/dL POC Glucose (mg/dL) 124 H 130 H 150 H (70-110) mg/dL Calcium (8.4-10.2) mg/dL Total Protein (6.3-8.2) g/dL Albumin (3.5-5.0) g/dL 08/23/23 08/23/23 08/23/23 Range/Units 20:18 21:50 23:50 RBC (4.30-5.90) m/uL Hgb (13.0-17.5) gm/dL Hct (39.0-53.0) % Plt Count (150-450) k/uL Sodium (137-145) mmol/L Glucose (74-99) mg/dL POC Glucose (mg/dL) 126 H 133 H 130 H (70-110) mg/dL Calcium (8.4-10.2) mg/dL Total Protein (6.3-8.2) g/dL Albumin (3.5-5.0) g/dL 08/24/23 08/24/23 08/24/23 Range/Units 02:02 03:00 04:08 RBC (4.30-5.90) m/uL Hgb (13.0-17.5) gm/dL Hct (39.0-53.0) % Plt Count (150-450) k/uL Sodium (137-145) mmol/L Glucose (74-99) mg/dL POC Glucose (mg/dL) 117 H 116 H 139 H (70-110) mg/dL Calcium (8.4-10.2) mg/dL Total Protein (6.3-8.2) g/dL Albumin (3.5-5.0) g/dL 08/24/23 08/24/23 08/24/23 Range/Units 04:10 04:10 06:18 RBC 3.71 L (4.30-5.90) m/uL Hgb 11.3 L (13.0-17.5) gm/dL Hct 33.1 L (39.0-53.0) % Plt Count 147 L (150-450) k/uL Sodium 134 L (137-145) mmol/L Glucose 132 H (74-99) mg/dL POC Glucose (mg/dL) 132 H (70-110) mg/dL Calcium 8.3 L (8.4-10.2) mg/dL Total Protein 5.6 L (6.3-8.2) g/dL Albumin 3.3 L (3.5-5.0) g/dL 08/24/23 08/24/23 Range/Units 08:11 09:44 RBC (4.30-5.90) m/uL Hgb (13.0-17.5) gm/dL Hct (39.0-53.0) % Plt Count (150-450) k/uL Sodium (137-145) mmol/L Glucose (74-99) mg/dL POC Glucose (mg/dL) 218 H 158 H (70-110) mg/dL Calcium (8.4-10.2) mg/dL Total Protein (6.3-8.2) g/dL Albumin (3.5-5.0) g/dL Assessment and Plan Plan: Severe triple-vessel coronary artery disease Patient underwent three-vessel bypass surgery, off pump and the patient is currently postop day #2. Doing well. Hemodynamically stable. Currently off Cardizem drip and off nitroglycerin drip. The patient is hemodynamically stable. Cardiac output is stable. The Manor-Phuc catheter has been removed and the patient is currently hemodynamically stable Postthoracotomy, currently extubated on 2 L of oxygen by nasal cannula. The mediastinal chest tube was then removed and the patient has his left tube in place Previous PCI, 2000. History of hypertension. History of hyperlipidemia. Former nicotine dependence. Mild COPD, with an FEV1 percent at 75% of predicted. Hyperglycemia, currently on insulin drip at 4.5 units an hour Plan: Continue using the senna spirometer Manor-Phuc catheter has been removed Mediastinal chest tube is removed and the pleural chest tube output is minimal at this point in time. No evidence of any air leak Currently on 2 L of action by nasal cannula and using incentive spirometer Patient is off nitroglycerin Patient is currently on aspirin, Plavix, Lipitor, and metoprolol at a dose of 50 mg twice a day, the patient is also on amlodipine 2.5 mg by mouth daily Increase mobility and ambulates Discontinue the insulin drip and give the patient 10 units of Levemir plus a sliding scale coverage. We'll continue to follow
[2023-08-24] MEDS: INSULIN ASPART (NovoLOG) 100 UNIT/ML VIAL SQ SCH ×3 (11:38→20:36)
[2023-08-24 11:39] LABS: Glucose,Whole Blood 122 mg/dL (70-110)
[2023-08-24] MEDS ORDERED: FUROSEMIDE 10 MG/ML 2 ML VIAL IV ONE (12:00)
[2023-08-24] MEDS ORDERED: POTASSIUM CHLORIDE ER 10 MEQ TAB.ER.PRT PO STA (12:01)
[2023-08-24] MEDS: amLODIPine 2.5 MG TAB PO SCH (12:01)
[2023-08-24] MEDS: LACTATED RINGERS 1,000 ML IV SCH (14:15)
[2023-08-24] MEDS: guaiFENesin 600 MG TABLET.ER PO SCH ×2 (14:19→20:38)
[2023-08-24 17:03] LABS: Glucose,Whole Blood 113 mg/dL (70-110)
[2023-08-24 20:17] LABS: Glucose,Whole Blood 136 mg/dL (70-110)
[2023-08-24] MEDS: SENNOSIDES-DOCUSATE SODIUM 1 EACH TAB PO SCH (20:38)
[2023-08-24] MEDS ORDERED: INSULIN DETEMIR (LEVEMIR) 100 UNIT/ML SYR SQ SCH (21:00)
[2023-08-25] MEDS: KETOROLAC 15 MG/ML 1 ML VIAL IVP SCH ×4 (00:52→20:29)
[2023-08-25] MEDS: HEPARIN SODIUM,PORCINE 5,000 UNIT/ML 1 ML VIAL SQ SCH ×3 (00:52→16:13)
[2023-08-25 05:58] LABS: Basophils # (A) 0.1 k/uL (0-0.2); Basophils % (A) 1 %; Eosinophils # (A) 0.2 k/uL (0-0.7); Eosinophils % (A) 2 %; HCT 32.6 % (39.0-53.0); HGB 10.9 gm/dL (13.0-17.5); Lymphocytes # (A) 2.1 k/uL (1.0-4.8); Lymphocytes % (A) 28 %; MCH 30.2 pg (25.0-35.0); MCHC 33.5 g/dL (31.0-37.0); MCV 90.1 fL (80.0-100.0); Monocytes # (A) 0.5 k/uL (0-1.0); Monocytes % (A) 6 %; Neutrophils # (A) 4.7 k/uL (1.3-7.7); Neutrophils % (A) 60 %; Platelet Count 168 k/uL (150-450); RBC 3.62 m/uL (4.30-5.90); RDW 13.6 % (11.5-15.5); WBC 7.8 k/uL (3.8-10.6)
[2023-08-25 06:22] LABS: Glucose,Whole Blood 129 mg/dL (70-110)
[2023-08-25 06:25] LABS: ALT 46 U/L (4-49); AST 39 U/L (17-59); African American GFR (CKD) >90 (>60 ml/min/1.73 sqM); Albumin 3.2 g/dL (3.5-5.0); Alkaline Phosphatase 59 U/L (38-126); Anion Gap 7 mmol/L; Blood Urea Nitrogen 13 mg/dL (9-20); Calcium 8.4 mg/dL (8.4-10.2); Carbon Dioxide 29 mmol/L (22-30); Chloride 100 mmol/L (98-107); Glucose 113 mg/dL (74-99); Non-African American GFR(CKD) >90 (>60 ml/min/1.73 sqM); Potassium 4.1 mmol/L (3.5-5.1); Sodium 136 mmol/L (137-145); Total Bilirubin 0.6 mg/dL (0.2-1.3); Total Protein 5.6 g/dL (6.3-8.2)
[2023-08-25] MEDS: INSULIN ASPART (NovoLOG) 100 UNIT/ML VIAL SQ SCH ×4 (06:32→22:16)
--- NOTE | 2023-08-25 07:39 | P.PN ---
Subjective Progress Note Date: 08/25/23 PROGRESS NOTE The patient is a 57-year-old male who underwent cardiac catheterization and was found to have severe obstructive disease, underwent coronary artery bypass grafting yesterday by Dr. Walls, he received a LANE to the LAD and left radial to the intermediate and to the OM. He is extubated, sitting up in the chair, in sinus mechanism, hemodynamically stable. He has a prior history of CAD stenting of the right coronary artery and the LAD in 2000. Preoperatively his systolic function was preserved. He has a prior history of smoking, hypertension and hyperlipidemia. He is complaining of chest wall tenderness and mild cough August 24: The patient feels better today, he has less chest wall discomfort in his breathing is stable. He denies any dizziness or palpitations, no nausea. He is tolerating oral medication. He has ambulated and has been using his incentive spirometry. He continues to be in sinus mechanism. His x-ray shows effusion on the left side August 25: The patient feels well this morning, he continues to have chest wall tenderness but better. His breathing is stable. He continues to be in sinus mechanism and hemodynamically stable. He has been walking and has felt better. He has no nausea or vomiting. His blood pressure has been stable. He is using incentive spirometry. Medications: Aspirin, Lipitor 40 mg daily, amlodipine 2.5 mg daily, Plavix 75 mg daily, metoprolol tartrate 50 mg twice a day, insulin PHYSICAL EXAMINATION: Blood pressure 128/80 heart rate 79 LUNGS: Few scattered rhonchi at the bases HEART: Regular rate and rhythm, S1, S2. No S3. No systolic murmur, no rub ABDOMEN: Soft, nontender, no organomegaly EXTREMETIES: No edema LAB: Hemoglobin 10.9, BUN 13, creatinine 0.83 IMPRESSION: 1. Status post CABG, stable 2. History of prior stenting 3. Hyperlipidemia 4. Hypertension 5. Prior history of smoking PLAN: 1. Continue present therapy 2. Increase physical activity 3. Depending on his progress further recommendations will be made Objective - Vital Signs Vital signs: Vital Signs Temp 98.0 F 08/25/23 04:00 Pulse 79 08/25/23 04:00 Resp 19 08/25/23 04:00 BP 128/82 08/25/23 04:00 Pulse Ox 92 L 08/25/23 04:00 FiO2 50 08/22/23 17:30 Intake & Output 08/24/23 08/25/23 08/25/23 18:59 06:59 18:59 Intake Total 827.052 250 Output Total 920 1880 70 Balance -92.948 -1630 -70 Weight 93.6 kg Intake: IV 200 Lactated Ringers 1,000 ml 170 @ 20 mls/hr IV .Q24H [facility] Rx#:[id number] Pressure Bags 0.9/ CO/CI 30 Intake, IV Titration 27.052 Amount Insulin Regular 100 unit 27.052 In Sodium Chloride 0.9% 100 ml @ Per Protocol IV .Q0M [facility] Rx#:[id number] Oral 600 250 Output: Chest Tube Drainage 145 30 70 Chest Tube Left Pleural/ 100 Mediastinal Pleural Catheter Left 45 30 70 Urine 775 1850 Other: Voiding Method Urinal Urinal ABP, PAP, CO, CI - Last Documented Arterial Blood Pressure 123/49 Pulmonary Artery Pressure 33/10 Cardiac Output 6.1 Cardiac Index 3 - Labs CBC & Chem 7: 08/25/23 05:22 08/25/23 05:22 Labs: Abnormal Lab Results - Last 24 Hours (Table) 08/24/23 08/24/23 08/24/23 Range/Units 08:11 09:44 11:27 RBC (4.30-5.90) m/uL Hgb (13.0-17.5) gm/dL Hct (39.0-53.0) % Sodium (137-145) mmol/L Glucose (74-99) mg/dL POC Glucose (mg/dL) 218 H 158 H 122 H (70-110) mg/dL Total Protein (6.3-8.2) g/dL Albumin (3.5-5.0) g/dL 08/24/23 08/24/23 08/25/23 Range/Units 17:01 20:16 05:22 RBC 3.62 L (4.30-5.90) m/uL Hgb 10.9 L (13.0-17.5) gm/dL Hct 32.6 L (39.0-53.0) % Sodium (137-145) mmol/L Glucose (74-99) mg/dL POC Glucose (mg/dL) 113 H 136 H (70-110) mg/dL Total Protein (6.3-8.2) g/dL Albumin (3.5-5.0) g/dL 08/25/23 08/25/23 Range/Units 05:22 06:21 RBC (4.30-5.90) m/uL Hgb (13.0-17.5) gm/dL Hct (39.0-53.0) % Sodium 136 L (137-145) mmol/L Glucose 113 H (74-99) mg/dL POC Glucose (mg/dL) 129 H (70-110) mg/dL Total Protein 5.6 L (6.3-8.2) g/dL Albumin 3.2 L (3.5-5.0) g/dL
--- NOTE | 2023-08-25 08:00 | P.PN ---
Subjective Progress Note Date: 08/25/23 Principal diagnosis: Coronary artery disease. Past medical history significant for myocardial infarction and PCI in 2000, hypertension, hyperlipidemia, previous tobacco dependence. 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 POD #3 off-pump coronary artery bypass grafting 3 with left internal mammary artery to the left anterior descending artery, sequential graft left radial artery to the intermediate and obtuse marginal coronary arteries, endovascular harvest left radial artery, endovascular harvest right greater saphenous vein from the ankle to the groin, ligation of the left atrial appendage with a 40 mm AtriCure clip, intraoperative transesophageal echocardiogram by anesthesia. Postoperative acute blood loss anemia, expected given hemodilution. The patient was seen and examined in follow-up today 08/25/2023 at his bedside in the intensive care unit. He is currently sitting up to the bedside chair, is awake, alert, oriented 3 and is in no acute apparent distress. He denies any complaints of pain with sitting, although reports he has pain with coughing to his chest tube insertion site rating his pain with coughing 7 out of 10 on the pain scale. Denies any complaints of shortness of breath at this time. Oxygen saturations are 94% on room air and he is achieving 1000 mL on his incentive spirometry with encouragement. Bedside telemetry showing normal sinus rhythm heart rate 86 BPM. His metoprolol tartrate was increased to 50 mg by mouth twice a day yesterday. He remains hemodynamically stable and is currently on no inotropic or pressor support. His mediastinal chest tube, right IJ Cordis and right radial arterial line were discontinued yesterday without incident. Left pleural chest tube remains in place to low continuous wall suction -20 cm H2O. No air leak is present. Draining thin serosanguineous drainage with 30 mL outp ut in the last 8 hours and 210 mL output in the last 24 hours. Laboratory and chest x-ray results reviewed. Objective - Vital Signs Vital signs: Vital Signs Temp 98.0 F 08/25/23 04:00 Pulse 79 08/25/23 04:00 Resp 19 08/25/23 04:00 BP 128/82 08/25/23 04:00 Pulse Ox 92 L 08/25/23 04:00 FiO2 50 08/22/23 17:30 Intake & Output 08/24/23 08/25/23 08/25/23 18:59 06:59 18:59 Intake Total 827.052 250 Output Total 920 1880 570 Balance -92.948 -1630 -570 Weight 93.6 kg Intake: IV 200 Lactated Ringers 1,000 ml 170 @ 20 mls/hr IV .Q24H [facility] Rx#:[id number] Pressure Bags 0.9/ CO/CI 30 Intake, IV Titration 27.052 Amount Insulin Regular 100 unit 27.052 In Sodium Chloride 0.9% 100 ml @ Per Protocol IV .Q0M [facility] Rx#:[id number] Oral 600 250 Output: Chest Tube Drainage 145 30 70 Chest Tube Left Pleural/ 100 Mediastinal Pleural Catheter Left 45 30 70 Urine 775 1850 500 Other: Voiding Method Urinal Urinal ABP, PAP, CO, CI - Last Documented Arterial Blood Pressure 123/49 Pulmonary Artery Pressure 33/10 Cardiac Output 6.1 Cardiac Index 3 - Exam CONSTITUTIONAL: Sitting up to the bedside chair in the intensive care unit, appears comfortable, cooperative, no apparent acute distress. HEENT: Neck is supple, no JVD, no lymphadenopathy. . RESPIRATORY: Lungs sounds essentially clear throughout, diminished to his bilateral basese. Respirations are symmetrical and nonlabored. Currently on ro om air with oxygen saturations 94%. Able to achieve 1000 mL on his incentive spirometry. Strong cough. CARDIOVASCULAR: Regular rhythm and rate. S1 and S2 present, negative for S3, gallop or murmur. Sternum is stable. Palpable peripheral pulses bilaterally, No edema to his bilateral lower extremities. No calf pain or tenderness noted. Heart hugger in place with patient demonstrating appropriate use. Knee-high ARIELLE hose and sequential compression devices in place to his bilateral lower e xtremities. GASTROINTESTINAL: Abdomen soft, nontender, and nondistended. Active bowel sounds present 4 quadrants. Tolerating diet. Passing flatus. No guarding or rigidity. GENITOURINARY: Continues to void. Urine output 500 mL in the last 8 hours. INTEGUMENTARY: Skin is warm and dry with no evidence of clubbing or cyanosis. Midline sternal incision clean dry and well approximated, covered with dry intact dressing. Right lower extremity EVH sites well approximated without redness or drainage. Left arm radial artery harvest sites clean, dry and approximated. No drainage or redness is present. NEUROLOGIC: Cranial nerves II through XII intact. No focal deficits. MUSKULOSKELETAL: Able to move all extremities, strength equal bilaterally, generalized weakness. PSYCHIATRIC: Alert and oriented to person place and time, appropriate affect, intact judgment and insight. INVASIVE LINES AND TUBES: Left pleural chest tubes present and connected to low continuous wall suction, no air leaks present. Left pleural chest tubes with 30 mL of thin serosanguineous drainage overnight, 210 mL output in the last 24 hours. - Allied health notes Allied health notes reviewed: nursing - Labs CBC & Chem 7: 08/25/23 05:22 08/25/23 05:22 Labs: Abnormal Lab Results - Last 24 Hours (Table) 08/24/23 08/24/23 08/24/23 Range/Units 08:11 09:44 11:27 RBC (4.30-5.90) m/uL Hgb (13.0-17.5) gm/dL Hct (39.0-53.0) % Sodium (137-145) mmol/L Glucose (74-99) mg/dL POC Glucose (mg/dL) 218 H 158 H 122 H (70-110) mg/dL Total Protein (6.3-8.2) g/dL Albumin (3.5-5.0) g/dL 08/24/23 08/24/23 08/25/23 Range/Units 17:01 20:16 05:22 RBC 3.62 L (4.30-5.90) m/uL Hgb 10.9 L (13.0-17.5) gm/dL Hct 32.6 L (39.0-53.0) % Sodium (137-145) mmol/L Glucose (74-99) mg/dL POC Glucose (mg/dL) 113 H 136 H (70-110) mg/dL Total Protein (6.3-8.2) g/dL Albumin (3.5-5.0) g/dL 08/25/23 08/25/23 Range/Units 05:22 06:21 RBC (4.30-5.90) m/uL Hgb (13.0-17.5) gm/dL Hct (39.0-53.0) % Sodium 136 L (137-145) mmol/L Glucose 113 H (74-99) mg/dL POC Glucose (mg/dL) 129 H (70-110) mg/dL Total Protein 5.6 L (6.3-8.2) g/dL Albumin 3.2 L (3.5-5.0) g/dL - Imaging and Cardiology Chest x-ray: report reviewed, image reviewed Assessment and Plan Assessment: Coronary artery disease, complete occlusion of the right coronary artery, 70% ramus stenosis, proximal LAD stenosis 95%, status post three-vessel arterial CABG Previous myocardial infarction and PCI in 2000 Hypertension Hyperlipidemia, triglycerides 383, cholesterol 242, LDL 129 Previous tobacco dependence, preoperative FEV1 75% of predicted 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 Will increase metoprolol tartrate as tolerated, with hold parameters. Continue amlodipine 2.5 mg by mouth daily with hold parameters for radial artery spasm prophylaxis. Wean O2 as tolerated. Encourage incentive spirometry use 10 times every hour while awake. Bronchodilators per pulmonology. Increase activity, ambulate as tolerated. PT/OT/cardiac rehab following. Will monitor daily labs and chest x-rays. Electrolyte replacement per protocol. GI/DVT prophylaxis. Pain control per current medication regimen. Continue Toradol additional pain control. Insulin management per internal medicine service. Patient is not diabetic, hemoglobin A1c 5.9%. Needs to remain on insulin drip for 48 hours, then may tra nsition to subcutaneous per protocol. Remove left pleural chest tube. Continue to record strict accurate intake and output. Me bladder scan every 6 hours and when necessary postvoid residual, if greater than or equal to 300 mL of urine may straight cath. Daily weights. Continue nasal mupirocin for 5 days total. Transfer to third floor cardiac stepdown unit when bed available More recommendations to follow based on patient's clinical course. Time with Patient: Greater than 30
[2023-08-25] MEDS: ASPIRIN 325 MG TAB PO SCH (08:10)
[2023-08-25] MEDS: ATORVASTATIN 40 MG TAB PO SCH (08:10)
[2023-08-25] MEDS: CLOPIDOGREL 75 MG TAB PO SCH (08:10)
[2023-08-25] MEDS: METOPROLOL TARTRATE 50 MG TAB PO SCH ×2 (08:10→20:32)
[2023-08-25] MEDS: guaiFENesin 600 MG TABLET.ER PO SCH ×2 (08:10→20:32)
[2023-08-25] MEDS: PANTOPRAZOLE 40 MG TABLET PO SCH (08:10)
[2023-08-25] MEDS: MUPIROCIN 2% OINT 22 GM TUBE NASAL SCH ×2 (08:17→20:34)
[2023-08-25] MEDS: IPRATROPIUM-ALBUTEROL 3 ML NEB INHALATION SCH ×4 (08:22→21:09)
[2023-08-25] MEDS ORDERED: FUROSEMIDE 10 MG/ML 2 ML VIAL IV ONE (08:23)
[2023-08-25] MEDS ORDERED: POTASSIUM CHLORIDE ER 10 MEQ TAB.ER.PRT PO STA (08:23)
--- NOTE | 2023-08-25 08:52 | XR ---
EXAMINATION TYPE: XR chest 1V portable DATE OF EXAM: 08/25/2023 COMPARISON: 08/24/2023 HISTORY: Postoperative TECHNIQUE: Single frontal view of the chest is obtained. FINDINGS: Left-sided chest tubes are seen and there is median sternotomy findings. The heart is enla rged as of bilateral consolidation. No sizable pneumothorax. [place]-Phuc catheter has been removed. Med iastinal drain noted. Mild underlying venous congestion. IMPRESSION: 1. Stable postoperative change with bilateral consolidation and small effusion. Correlate for mild ve nous congestion.
--- NOTE | 2023-08-25 10:45 | P.PN ---
Subjective Progress Note Date: 08/25/23 On 08/22/2023, seeing the patient after he arrived to the intensive care unit following his coronary artery bypass surgery. The patient underwent an off pump 3 vessel bypass surgery. He underwent LANE to LAD and left radial to intermediate and OM. The patient is currently on propofol which is running at 30 mcg/kg/m. His 1 cm a mechanical ventilator. He is on assist control mode at a rate of 12, tidal volume of 550, FiO2 was dropped down to 60% and PEEP of 5. The blood gas showed a pH of 7.43 with a pCO2 of 46 and pO2 of 73 and this was the most recent blood gases. The chest x-ray showed adequate expansion of both lungs. The patient has a left pleural and a mediastinal chest tube. No evidence of any pneumothorax. The [place]uc is in a good location. His cardiac output is at 5.5 with an index of 2.7. The patient was given IV albumin immediately after he arrived to the ICU. The patient is currently on nitroglycerin drip at 5 mcg/m and Cardizem drip at 5 mg an hour. The output from the chest tubes are minimal at this point in time and the patient has no evidence of any air leak. Patient is on no pressors., Comfortable. Cardiac rhythm is sinus. No other significant events . Urine output is adequate. The labs from today. Showed a sodium level of 136, BUN is at 40 with a creatinine of 0.63 and a serum bicarb is at 21. On 08/23/2023, the patient is extubated and patient is currently on oxygen at 2 L. The chest x-ray showed no acute abnormalities. The lungs are adequately expanded. Chest tubes are in place. No evidence of any pneumothorax. The patient has a left pleural and a mediastinal chest tube. There is no evidence of air leak. Output from the chest tube has been in the order of 1000 mL since arrival from the operating room. Noted the patient's weaning process was quite straightforward. No major respiratory issues. He had excellent weaning parameters. He was weaned off the mechanical ventilator and he was extubated without any major difficulties. The [place] catheters were removed. The most recent cardiac output is at 6.1 with an index of 3.0. Is off the nitroglycerin drip. Cardizem drip will be discontinued at the later stage today. The patient is also on insulin drip at 2.5 units an hour with adequate blood sugar control. The cardiac rhythm is sinus at the rate of 80. He is awake, alert, communicatin g, burping, having some discomfort across his chest at the surgical site. On 08/24/2023, the patient is on oxygen at 2 L/m nasal cannula. Chest is a bit removed. The patient using the incentive spirometer. Pulling more than 2000. No respiratory distress. Chest x-ray from today showing adequate expansion of both lungs. There is no evidence of any pneumothorax. Sternal wires are in place and there is some post thoracotomy changes. The patient has some small effusion/atelectatic changes in the left lung base. Some minor platelike atelectasis on the right. I do not appreciate any pneumothorax at this point in time. Also, the bili was as of 9.2 with a hemoglobin of 11.3 and a platelet count of 147, BUN is 12 with a creatinine of 0.8 and a sodium level is at 134. Remains on aspirin. Remains on Plavix. Remains on metoprolol 50 mg twice a day. Remains on Norvasc 2.5 mg by mouth daily. Remains on Lipitor 40 mg by mouth daily. Insulin drip is still running at the rate of 4.5 units an hour. 08/25/2023, the patient is on room air oxygen. All of the chest is a bit removed. The chest x-ray from today shows adequate expansion of both lungs. No evidence of any pneumothorax. There is some atelectatic changes and cardiomegaly and some increase in pulmonary vessel markings.. His labs from today show a bili 7.8, hemoglobin 10.9, BUN is at 13 and the creatinine is at 0.8. Sodium levels of 136. The patient is clinically stable. The patient is hemodynamically stable. No focal neurological deficits at this point in time. He'll be given a dose of Lasix 20 mg IV push 1. He was given a dose of Lasix yesterday. He is on aspirin. He is on Plavix. He is on metoprolol 50 mg twice a day. He is also on amlodipine 2.5 mg by mouth daily. In terms of his blood sugar control, the patient is on insulin sliding scale coverage. Objective - Vital Signs Vital signs: Vital Signs Temp 98.0 F 08/25/23 04:00 Pulse 88 08/25/23 08:37 Resp 15 08/25/23 08:00 BP 121/74 08/25/23 08:00 Pulse Ox 94 L 08/25/23 08:00 FiO2 50 08/22/23 17:30 Intake & Output 08/24/23 08/25/23 08/25/23 18:59 06:59 18:59 Intake Total 827.052 250 Output Total 920 1880 1045 Balance -92.948 -1630 -1045 Weight 93.6 kg Intake: IV 200 Lactated Ringers 1,000 ml 170 @ 20 mls/hr IV .Q24H [facility] Rx#:[id number] Pressure Bags 0.9/ CO/CI 30 Intake, IV Titration 27.052 Amount Insulin Regular 100 unit 27.052 In Sodium Chloride 0.9% 100 ml @ Per Protocol IV .Q0M [facility] Rx#:[id number] Oral 600 250 Output: Chest Tube Drainage 145 30 70 Chest Tube Left Pleural/ 100 Mediastinal Pleural Catheter Left 45 30 70 Urine 775 1850 975 Other: Voiding Method Urinal Urinal Urinal ABP, PAP, CO, CI - Last Documented Arterial Blood Pressure 123/49 Pulmonary Artery Pressure 33/10 Cardiac Output 6.1 Cardiac Index 3 - Exam Gen. appearance, calm and comfortable, sedated, not in acute distress and the patient is on RA Head exam was generally normal. There was no scleral icterus or corneal arcus. Mucous membranes were moist. Neck was supple and without jugular venous distension, thyromegaly, or carotid bruits. Carotids were easily palpable bilaterally. There was no adenopathy. Lungs were clear to auscultation and percussion, and with normal diaphragmatic excursion. No wheezes or rales were noted. Cardiac exam revealed the PMI to be normally situated and sized. The rhythm was regular and no extrasystoles were noted during several minutes of auscultation. The first and second heart sounds were normal and physiologic splitting of the second heart sound was noted. There were no murmurs, rubs, clicks, or gallops. Abdominal exam revealed normal bowel sounds. The abdomen was soft, non-tender, and without masses, organomegaly, or appreciable enlargement of the abdominal aorta. Examination of the extremities revealed easily palpable radial, femoral and pedal pulses. There was no cyanosis, clubbing or edema. Examination of the skin revealed no evidence of significant rashes, suspicious appearing nevi or other concerning lesions. Neurologically, Neurologically, the patient is awake and alert and the patient does not have any focal neurological deficit. Cranial nerves are essentially intact. - Labs CBC & Chem 7: 08/25/23 05:22 08/25/23 05:22 Labs: Abnormal Lab Results - Last 24 Hours (Table) 08/24/23 08/24/23 08/24/23 Range/Units 11:27 17:01 20:16 RBC (4.30-5.90) m/uL Hgb (13.0-17.5) gm/dL Hct (39.0-53.0) % Sodium (137-145) mmol/L Glucose (74-99) mg/dL POC Glucose (mg/dL) 122 H 113 H 136 H (70-110) mg/dL Total Protein (6.3-8.2) g/dL Albumin (3.5-5.0) g/dL 08/25/23 08/25/23 08/25/23 Range/Units 05:22 05:22 06:21 RBC 3.62 L (4.30-5.90) m/uL Hgb 10.9 L (13.0-17.5) gm/dL Hct 32.6 L (39.0-53.0) % Sodium 136 L (137-145) mmol/L Glucose 113 H (74-99) mg/dL POC Glucose (mg/dL) 129 H (70-110) mg/dL Total Protein 5.6 L (6.3-8.2) g/dL Albumin 3.2 L (3.5-5.0) g/dL Assessment and Plan Plan: Severe triple-vessel coronary artery disease Patient underwent three-vessel bypass surgery, off pump and the patient is currently postop day #3. Doing well. Hemodynamically stable. Currently off Cardizem drip and off nitroglycerin drip. The patient is hemodynamically stable. Cardiac output is s table. The [place] catheter has been removed and the patient is currently hemodynamically stable Postthoracotomy, currently extubated on RA oxygen by nasal cannula. The mediastinal chest tube pleural chest tube has been removed. Previous PCI, 2000. History of hypertension. History of hyperlipidemia. Former nicotine dependence. Mild COPD, with an FEV1 percent at 75% of predicted. Hyperglycemia, improved and the patient is currently on sliding scale insulin coverage Plan: Continue using the senna spirometer [place] catheter has been removed Chest tubes have been removed Patient is currently on room air oxygen and using incentive spirometer Patient is currently on aspirin, Plavix, Lipitor, and metoprolol at a dose of 50 mg twice a day, the patient is also on amlodipine 2.5 mg by mouth daily Increase mobility and ambulates the insulin sliding scale coverage. We'll continue to follow
[2023-08-25 12:43] LABS: Glucose,Whole Blood 149 mg/dL (70-110)
[2023-08-25] MEDS: amLODIPine 2.5 MG TAB PO SCH (12:47)
[2023-08-25 16:33] LABS: Glucose,Whole Blood 142 mg/dL (70-110)
[2023-08-25] MEDS: SENNOSIDES-DOCUSATE SODIUM 1 EACH TAB PO SCH (20:32)
[2023-08-25 22:14] LABS: Glucose,Whole Blood 179 mg/dL (70-110)
[2023-08-26] MEDS: KETOROLAC 15 MG/ML 1 ML VIAL IVP SCH ×3 (00:46→11:30)
[2023-08-26] MEDS: HEPARIN SODIUM,PORCINE 5,000 UNIT/ML 1 ML VIAL SQ SCH ×2 (00:46→07:54)
[2023-08-26 06:17] LABS: Glucose,Whole Blood 119 mg/dL (70-110)
[2023-08-26] MEDS: INSULIN ASPART (NovoLOG) 100 UNIT/ML VIAL SQ SCH ×2 (06:21→13:10)
[2023-08-26] MEDS: PANTOPRAZOLE 40 MG TABLET PO SCH (06:26)
[2023-08-26] MEDS: guaiFENesin 600 MG TABLET.ER PO SCH (07:53)
[2023-08-26] MEDS: ATORVASTATIN 40 MG TAB PO SCH (07:54)
[2023-08-26] MEDS: ASPIRIN 325 MG TAB PO SCH (07:54)
[2023-08-26] MEDS: CLOPIDOGREL 75 MG TAB PO SCH (07:54)
[2023-08-26] MEDS: METOPROLOL TARTRATE 50 MG TAB PO SCH (07:54)
[2023-08-26] MEDS: MUPIROCIN 2% OINT 22 GM TUBE NASAL SCH (07:54)
[2023-08-26] MEDS: IPRATROPIUM-ALBUTEROL 3 ML NEB INHALATION SCH ×3 (07:59→15:42)
--- NOTE | 2023-08-26 08:45 | XR ---
EXAMINATION TYPE: XR chest 2V DATE OF EXAM: 08/26/2023 COMPARISON: 08/25/2023 TECHNIQUE: PA and lateral views submitted. HISTORY: POST OP CABG FINDINGS: Left-sided chest tubes has removed and there is median sternotomy findings. The heart is enlarged as of bilateral consolidation. No sizable pneumothorax. [place]-Phuc catheter has been removed. Mediastinal drain noted. Mild underlying venous congestion. IMPRESSION: 1. Stable postoperative change with bilateral consolidation and small effusion. Correlate for mild ve nous congestion.
[2023-08-26 08:57] LABS: African American GFR (CKD) >90 (>60 ml/min/1.73 sqM); Anion Gap 12 mmol/L; Blood Urea Nitrogen 16 mg/dL (9-20); Carbon Dioxide 25 mmol/L (22-30); Chloride 99 mmol/L (98-107); Glucose 111 mg/dL (74-99); Non-African American GFR(CKD) >90 (>60 ml/min/1.73 sqM); Potassium 4.2 mmol/L (3.5-5.1); Sodium 136 mmol/L (137-145)
[2023-08-26 08:58] LABS: HCT 33.9 % (39.0-53.0); HGB 11.6 gm/dL (13.0-17.5); MCH 30.5 pg (25.0-35.0); MCHC 34.2 g/dL (31.0-37.0); MCV 89.4 fL (80.0-100.0); Mean Platelet Volume 7.2; Platelet Count 226 k/uL (150-450); RDW 13.2 % (11.5-15.5); WBC 6.8 k/uL (3.8-10.6)
[2023-08-26 11:26] VITALS: PULSE 84
[2023-08-26 11:50] VITALS: BP 144/71; RESP 16; TEMP 98
[2023-08-26] MEDS ORDERED: amLODIPine 5 MG TAB PO SCH (12:00)
--- NOTE | 2023-08-26 13:36 | P.PN ---
Subjective Progress Note Date: 08/26/23 PROGRESS NOTE The patient is a 57-year-old male who underwent cardiac catheterization and was found to have severe obstructive disease, underwent coronary artery bypass grafting yesterday by Dr. Walls, he received a LANE to the LAD and left radial to the intermediate and to the OM. He is extubated, sitting up in the chair, in sinus mechanism, hemodynamically stable. He has a prior history of CAD stenting of the right coronary artery and the LAD in 2000. Preoperatively his systolic function was preserved. He has a prior history of smoking, hypertension and hyperlipidemia. He is complaining of chest wall tenderness and mild cough August 24: The patient feels better today, he has less chest wall discomfort in his breathing is stable. He denies any dizziness or palpitations, no nausea. He is tolerating oral medication. He has ambulated and has been using his incentive spirometry. He continues to be in sinus mechanism. His x-ray shows effusion on the left side August 25: The patient feels well this morning, he continues to have chest wall tenderness but better. His breathing is stable. He continues to be in sinus mechanism and hemodynamically stable. He has been walking and has felt better. He has no nausea or vomiting. His blood pressure has been stable. He is using incentive spirometry. August 26: Patient has been transferred out of the intensive care unit seen today on the cardiac stepdown unit. Patient states that his breathing is okay. No chest pain but he does have chest soreness. He has been ambulating without difficulty. No symptoms with ambulation. Blood pressure 144/71, heart rate 84. Hemoglobin 11.6, creatinine 0.73. Medications: Aspirin, Lipitor 40 mg daily, amlodipine 2.5 mg daily, Plavix 75 mg daily, metoprolol tartrate 50 mg twice a day, insulin PHYSICAL EXAMINATION: Blood pressure 128/80 heart rate 79 LUNGS: Few scattered rhonchi at the bases HEART: Regular rate and rhythm, S1, S2. No S3. No systolic murmur, no rub ABDOMEN: Soft, nontender, no organomegaly EXTREMETIES: No edema LAB: Hemoglobin 11.6, BUN 16, creatinine 0.73 IMPRESSION: 1. Status post CABG, stable 2. History of prior stenting 3. Hyperlipidemia 4. Hypertension 5. Prior history of smoking PLAN: 1. Continue present therapy 2. Increase physical activity 3. Depending on his progress further recommendations will be made Nurse practitioner note has been reviewed, I agree with the documented findings and plan of care. Patient was seen and examined. Objective - Vital Signs Vital signs: Vital Signs Temp 97.9 F 08/26/23 07:45 Pulse 88 08/26/23 08:09 Resp 18 08/26/23 08:00 BP 134/86 08/26/23 07:45 Pulse Ox 94 L 08/26/23 07:59 FiO2 50 08/22/23 17:30 Intake & Output 08/25/23 08/26/23 08/26/23 18:59 06:59 18:59 Intake Total 540 360 Output Total 8162 147 2487 Balance -1295 -135 -1140 Weight 93.4 kg Intake: Oral 540 360 Output: Chest Tube Drainage 70 Pleural Catheter Left 70 Urine 1725 327 8212 Other: Voiding Method Urinal Urinal # Voids 1 # Bowel Movements 1 1 ABP, PAP, CO, CI - Last Documented Arterial Blood Pressure 123/49 Pulmonary Artery Pressure 33/10 Cardiac Output 6.1 Cardiac Index 3 - Labs CBC & Chem 7: 08/26/23 07:32 08/26/23 07:32 Labs: Abnormal Lab Results - Last 24 Hours (Table) 08/25/23 08/25/23 08/25/23 Range/Units 12:41 16:31 22:13 RBC (4.30-5.90) m/uL Hgb (13.0-17.5) gm/dL Hct (39.0-53.0) % Sodium (137-145) mmol/L Glucose (74-99) mg/dL POC Glucose (mg/dL) 149 H 142 H 179 H (70-110) mg/dL 08/26/23 08/26/23 08/26/23 Range/Units 06:16 07:32 07:32 RBC 3.80 L (4.30-5.90) m/uL Hgb 11.6 L (13.0-17.5) gm/dL Hct 33.9 L (39.0-53.0) % Sodium 136 L (137-145) mmol/L Glucose 111 H (74-99) mg/dL POC Glucose (mg/dL) 119 H (70-110) mg/dL
--- NOTE | 2023-08-26 14:32 | P.DS ---
Providers Date of admission: 08/18/23 10:06 Expected date of discharge: 08/26/23 Attending physician: Jesse Walls Consults: 08/18/23 10:50 Consult Physician Urgent Consulting Provider: Jesse Walls Consult Reason/Comments: CABG Do you want consulting provider notified?: Yes 08/18/23 13:30 Consult Physician Routine Consulting Provider: Carlos Gómez Consult Reason/Comments: known patient, heart cath Do you want consulting provider notified?: Already Contacted 08/18/23 15:14 Consult Physician Routine Consulting Provider: Jono Perez Consult Reason/Comments: preop cabg Do you want consulting provider notified?: Yes 08/21/23 08:47 Consult to Anesthesia Routine Consulting Provider: Anesthesia,Services Consult Reason/Comments: Cardiac Surgery Pre-Op 08/22/23 12:29 Consult Physician Routine Consulting Provider: Armand Cevallos Consult Reason/Comments: med mgmt Do you want consulting provider notified?: Already Contacted Primary care physician: Stated None Hospital Course: FINAL DIAGNOSIS: Coronary artery disease, complete occlusion of the right coronary artery, 70% ramus stenosis, proximal LAD stenosis 95%, status post three-vessel arterial CABG Previous myocardial infarction and PCI in 2000 Hypertension Hyperlipidemia, triglycerides 383, cholesterol 242, LDL 129 Previous tobacco dependence, preoperative FEV1 75% of predicted 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 Off-pump coronary artery bypass grafting 3 with left internal mammary artery to the left anterior descending coronary artery, sequential graft left radial artery to the intermediate and obtuse marginal coronary arteries 2. Endovascular harvest of the left radial artery 3. Endovascular harvest right greater saphenous vein from the ankle to the groin 4. Ligation of the left atrial appendage with a 40 mm AtriCure clip 5. Intraoperative transesophageal echocardiogram by anesthesia HISTORY OF PRESENT ILLNESS: This is a 57-year-old gentleman who follows in outpatient basis with [facility] for his primary care. Recently, he has had symptoms of chest pain/pressure with moderate amount of activity. He underwent a stress test on 08/15/2023 with evidence of inferior STT wave changes, reversi ble defect in the inferior wall with preserved ejection fraction. For further evaluation he was recommended to undergo a cardiac catheterization which was completed at [facility] by Dr. BETTY Gómez. The heart catheterization demonstrated severe triple vessel disease, complete occlusion of the right coronary artery, a 70% stenosis to his ramus coronary artery, and a 95% stenosis to his proximal left anterior descending coronary artery, and collaterals from the left system predominantly circumflex supplying the distal branches of the right coronary artery as well as the main trunk. For further evaluation he underwent a transthoracic 2-D echocardiogram which demonstrated a normal left ventricular size and systolic function with an ejection fraction of 55% and no significant valvular pathology. Subsequently, due to the findings on myocardial revascularization surgery recommendations. The patient was admitted to the hospital, met with Dr. Walls, treatment options were discussed including myocardial revascularization surgery. Risks and benefits of surgery were discussed including the STS risk score and knowing and understanding the risks the patient wished to proceed with the surgical option. HOSPITAL COURSE: the patient was brought to the preoperative area on 08/22/2023, prepared in the usual fashion and subsequently taken to the operating room where Dr. Jesse Walls performed an off-pump coronary artery bypass grafting 3 with left internal mammary artery to the left anterior descending coronary artery, sequential graft left radial artery to the intermediate and obtuse marginal coronary arteries. Upon completion of the surgery the patient was transferred to the cardiovascular intensive care unit where he was recovered and monitored hemodynamically. He was subsequently extubated, all lines, tubes and supportive drips were discontinued when appropriate and he was transferred to the cardiac stepdown unit for further monitoring and rehabilitation. His oxygen was titrated down, he continued to work with physical/occupational therapy, cardiac rehabilitation, he was tolerating an oral diet, his pain was well controlled without narcotics and he was ready to be discharged home with a [facility] care on postoperative day #4. The patient has received verbal and written instructions regarding his medications, activity restrictions, signs and symptoms requiring physician notification and his follow-up appointments. Plan - Discharge Summary Discharge Rx Participant: Yes New Discharge Prescriptions: New Aspirin 325 mg PO DAILY #30 tab Atorvastatin [Lipitor] 40 mg PO DAILY #30 tab Metoprolol Tartrate [Lopressor] 50 mg PO BID #60 tab Acetaminophen Tab [Tylenol] 650 mg PO Q4HR PRN tab PRN Reason: Fever And/ Or Pain amLODIPine [Norvasc] 5 mg PO DAILY@1200 #30 tab Clopidogrel [Plavix] 75 mg PO DAILY #30 tab Pantoprazole [Protonix] 40 mg PO AC-BRKFST #30 tab Sennosides-Docusate Sodium [Senokot-S] 2 each PO HS #14 tab Continue Loratadine [Claritin] 10 mg PO DAILY Ergocalciferol (Vitamin D2) [Drisdol (50,000 Iu)] 1,250 mcg PO TH [place]-3/Dha/Epa/Fish Oil [Fish Oil 1,000 mg Softgel] 1 cap PO DAILY Cyanocobalamin (Vitamin B-12) [Vitamin B-12] 1,000 mcg PO DAILY Discontinued Nitroglycerin Sl Tabs [Nitrostat] 0.4 mg SUBLINGUAL Q5M PRN PRN Reason: Chest Pain Aspirin 81 mg PO DAILY lisinopriL [Zestril] 20 mg PO DAILY atenoloL [Tenormin] 50 mg PO DAILY Discharge Medication List Cyanocobalamin (Vitamin B-12) [Vitamin B-12] 1,000 mcg PO DAILY 08/18/23 [History] Ergocalciferol (Vitamin D2) [Drisdol (50,000 Iu)] 1,250 mcg PO TH 08/18/23 [History] Loratadine [Claritin] 10 mg PO DAILY 08/18/23 [History] [place]-3/Dha/Epa/Fish Oil [Fish Oil 1,000 mg Softgel] 1 cap PO DAILY 08/18/23 [History] Acetaminophen Tab [Tylenol] 650 mg PO Q4HR PRN tab 08/26/23 [Rx] Aspirin 325 mg PO DAILY #30 tab 08/26/23 [Rx] Atorvastatin [Lipitor] 40 mg PO DAILY #30 tab 08/26/23 [Rx] Clopidogrel [Plavix] 75 mg PO DAILY #30 tab 08/26/23 [Rx] Metoprolol Tartrate [Lopressor] 50 mg PO BID #60 tab 08/26/23 [Rx] Pantoprazole [Protonix] 40 mg PO AC-BRKFST #30 tab 08/26/23 [Rx] Sennosides-Docusate Sodium [Senokot-S] 2 each PO HS #14 tab 08/26/23 [Rx] amLODIPine [Norvasc] 5 mg PO DAILY@1200 #30 tab 08/26/23 [Rx] Follow up Appointment(s)/Referral(s): Jag Jansen MD [Medical Doctor] - 10 Days (Spoke with Jann at [facility] she will be calling with a follow-up appointment.) Nilo Tejeda,Home Care [NON-STAFF] - (Nilo Tejeda will call you to arrange a visit) Jesse Walls MD [STAFF PHYSICIAN] - 09/08/23 9:30 am Bryson Pink NPC [Nurse Practitioner] - 09/01/23 11:30 am (Please follow-up at [address] [place] [address], [address], [place] [address]. Office number is [phone]) Jnoo Perez DO [Doctor of Osteopathic Medicine] - 09/13/23 10:00 am [facility],Clinic [REFERRING] - 09/02/23 2:30 pm (Dr Padilla) Ambulatory/Diagnostic Orders: Complete Blood Count w/diff [LAB.AMB] Time Frame: 08/29/23, Facility: [facility], Location: Laboratory [facility] Comprehensive Metabolic Panel [LAB.AMB] Time Frame: 08/29/23, Facility: [facility], Location: [facility] Activity/Diet/Wound Care/Special Instructions: DISCHARGE INSTRUCTIONS: 1. No driving for 4 weeks, or until physician gives their ok. 2. The patient should sleep in their own bed, no medical bed needed. 3. Stairs are not an issue. If the bedroom is upstairs, it is advised that the patient go up at night and down in the morning for the first week. Go slowly, using handrail and take 1 step at a time. 4. ARIELLE hose are to be worn for 30 days or until physician discontinues. 5. Heart hugger is to be worn 100% of the time until physician discontinues.(except when showering) 6. No lifting, pushing, or pulling more than 10 pounds for 12 weeks. The physician will advise of any restriction changes. 7. The patient is expected to continue the prescribed walking program. 8. Continue pain control per as needed orders. 9. Continue with incentive spirometry and splinting/heart hugger until otherwise directed by the physician. 10. Must shower daily using liquid antibacterial soap and a separate white washcloth for each individual incision. 11. Routine sternal incision care, no ointments, lotions or powders on the incisions. 12. Please notify surgeon/nurse practitioner for temperature greater than 101F or purulent drainage from incisions 13. Prescriptions for first 30 days given per cardiac surgery service. After 30 days, all prescription refills obtained through cardiology/primary care physician. 14. A red arm and has been placed on this patient it should be worn for 30 days post surgery and will be removed by the cardiothoracic surgeons. If an ER visit is necessary, please make sure the number on the red arm band is called. HOME HEALTH SERVICES TO PROVIDE: RN SKILLED HOME CARE SERVICES FOR POST-OP SURGICAL PATIENTS WITH THE FOLLOWING: Coronary Artery Bypass Surgery (CABG), Mitral Valve Replacement/Repair ( MVR), Aortic Valve Replacement/Repair (AVR) RN TO CONTINUE EDUCATION FROM ``ROAD TO A HEALTH HEART PATIENT EDUCATION MANUAL" (GIVEN TO PATIENT IN THE HOSPITAL) MEDICATION RECONCILIATION WITH EDUCATION NEEDED ON FIRST HOME VISIT EMPHASIZE IMPORTANCE OF WEARING BREAST SUPPORT/HEART HUGGER ENCOURAGE USE OF INCENTIVE SPIROMETER 10 X EVERY HOUR WHILE AWAKE ENCOURAGE UTILIZATION OF LOWER EXTREMITY COMPRESSION STOCKINGS/ARIELLE HOSE and ELEVATE LEGS ABOVE LEVEL OF HEART WHILE AT REST. ENCOURAGE AMBULATION 3-5x/day INCREASING TOLERATES, WHILE AVOID EXTREMES IN TEMPERATURE FREQUENCY: RN TO OPEN THE PATIENT WITHIN 24 HOURS OF DISCHARGE FROM THE HOSPITAL WITH TELEHEALTH INSTALLED AT [facility], RN TO VISIT 2-3 X A WEEK FOR 4 WEEKS ESTABLISHED BY PATIENT NEEDS. REMOVAL OF SUTURES: NURSING SERVICES TO REMOVE SUTURES TWO WEEKS POST SURGICAL DATE [ default ]. If any questions regarding suture removal please call the office at [phone]. LABORATORY: CBC, CMP TO BE DRAWN ON THE THIRD DAY HOME, (RAN STAT) FAX RESULTS TO [phone]. TELEHEALTH PARAMETERS: WEIGHT: NOTIFY MD OF WEIGHT GAIN OF 2 LBS IN 24 HOURS OR 5 LBS IN ONE WEEK HR: NOTIFY MD OF HR <55 BPM OR HR>100 BPM BP: NOTIFY MD IF BP <90/55 OR BP>140/100 O2 SAT: NOTIFY MD IF PO2<93% ON ROOM AIR SEND TELEHEALTH REPORT TO PHOTOGRAPHIC DOUBLE AND CARDIOVASCULAR SURGEON THE FIRST WEEK OF CARE AND THEN BI-WEEKLY. PLEASE ADDITIONALLY COMMUNICATE ANY ABNORMALS AND NEW FINDINGS TO THE SURGEONS OFFICE. Discharge Disposition: HOME WITH HOME HEALTH SERVICES
--- NOTE | 2023-08-26 16:24 | P.PN ---
Subjective Progress Note Date: 08/26/23 On 08/22/2023, seeing the patient after he arrived to the intensive care unit following his coronary artery bypass surgery. The patient underwent an off pump 3 vessel bypass surgery. He underwent LANE to LAD and left radial to intermediate and OM. The patient is currently on propofol which is running at 30 mcg/kg/m. His 1 cm a mechanical ventilator. He is on assist control mode at a rate of 12, tidal volume of 550, FiO2 was dropped down to 60% and PEEP of 5. The blood gas showed a pH of 7.43 with a pCO2 of 46 and pO2 of 73 and this was the most recent blood gases. The chest x-ray showed adequate expansion of both lungs. The patient has a left pleural and a mediastinal chest tube. No evidence of any pneumothorax. The Ocilla-Phuc is in a good location. His cardiac output is at 5.5 with an index of 2.7. The patient was given IV albumin immediately after he arrived to the ICU. The patient is currently on nitroglycerin drip at 5 mcg/m and Cardizem drip at 5 mg an hour. The output from the chest tubes are minimal at this point in time and the patient has no evidence of any air leak. Patient is on no pressors., Comfortable. Cardiac rhythm is sinus. No other significant events . Urine output is adequate. The labs from today. Showed a sodium level of 136, BUN is at 40 with a creatinine of 0.63 and a serum bicarb is at 21. On 08/23/2023, the patient is extubated and patient is currently on oxygen at 2 L. The chest x-ray showed no acute abnormalities. The lungs are adequately expanded. Chest tubes are in place. No evidence of any pneumothorax. The patient has a left pleural and a mediastinal chest tube. There is no evidence of air leak. Output from the chest tube has been in the order of 1000 mL since arrival from the operating room. Noted the patient's weaning process was quite straightforward. No major respiratory issues. He had excellent weaning parameters. He was weaned off the mechanical ventilator and he was extubated without any major difficulties. The Ocilla-Phuc catheters were removed. The most recent cardiac output is at 6.1 with an index of 3.0. Is off the nitroglycerin drip. Cardizem drip will be discontinued at the later stage today. The patient is also on insulin drip at 2.5 units an hour with adequate blood sugar control. The cardiac rhythm is sinus at the rate of 80. He is awake, alert, communicatin g, burping, having some discomfort across his chest at the surgical site. On 08/24/2023, the patient is on oxygen at 2 L/m nasal cannula. Chest is a bit removed. The patient using the incentive spirometer. Pulling more than 2000. No respiratory distress. Chest x-ray from today showing adequate expansion of both lungs. There is no evidence of any pneumothorax. Sternal wires are in place and there is some post thoracotomy changes. The patient has some small effusion/atelectatic changes in the left lung base. Some minor platelike atelectasis on the right. I do not appreciate any pneumothorax at this point in time. Also, the bili was as of 9.2 with a hemoglobin of 11.3 and a platelet count of 147, BUN is 12 with a creatinine of 0.8 and a sodium level is at 134. Remains on aspirin. Remains on Plavix. Remains on metoprolol 50 mg twice a day. Remains on Norvasc 2.5 mg by mouth daily. Remains on Lipitor 40 mg by mouth daily. Insulin drip is still running at the rate of 4.5 units an hour. 08/25/2023, the patient is on room air oxygen. All of the chest is a bit removed. The chest x-ray from today shows adequate expansion of both lungs. No evidence of any pneumothorax. There is some atelectatic changes and cardiomegaly and some increase in pulmonary vessel markings.. His labs from today show a bili 7.8, hemoglobin 10.9, BUN is at 13 and the creatinine is at 0.8. Sodium levels of 136. The patient is clinically stable. The patient is hemodynamically stable. No focal neurological deficits at this point in time. He'll be given a dose of Lasix 20 mg IV push 1. He was given a dose of Lasix yesterday. He is on aspirin. He is on Plavix. He is on metoprolol 50 mg twice a day. He is also on amlodipine 2.5 mg by mouth daily. In terms of his blood sugar control, the patient is on insulin sliding scale coverage. on 08/26/2023, seeing the patient for a follow-up. The patient is doing well. Chest tubes are out. Chest x-ray shows no acute abnormalities. Some minimal atelectatic change in the lung base. Otherwise, the patient on room air oxygen. The patient is ambulating. No respiratory difficulties for now. Clinically and hemodynamically stable. Blood sugars under adequate control. The patient has no complaints. Discharge planning is in progress.White cell count is at 6.8, hemoglobin the 0.6 and a platelet count 226. Sodium level is at 136, potassium is at 4.2, BUN is at 60 with a creatinine of 0.7. Objective - Vital Signs Vital signs: Vital Signs Temp 97.9 F 08/26/23 07:45 Pulse 88 08/26/23 11:28 Resp 18 08/26/23 08:00 BP 134/86 08/26/23 07:45 Pulse Ox 94 L 08/26/23 07:59 FiO2 50 08/22/23 17:30 Intake & Output 08/25/23 08/26/23 08/26/23 18:59 06:59 18:59 Intake Total 540 360 Output Total 5927 889 4412 Balance -1295 -135 -1140 Weight 93.4 kg Intake: Oral 540 360 Output: Chest Tube Drainage 70 Pleural Catheter Left 70 Urine 8098 562 2123 Other: Voiding Method Urinal Urinal # Voids 1 # Bowel Movements 1 1 ABP, PAP, CO, CI - Last Documented Arterial Blood Pressure 123/49 Pulmonary Artery Pressure 33/10 Cardiac Output 6.1 Cardiac Index 3 - Exam Gen. appearance, calm and comfortable, sedated, not in acute distress and the patient is on RA Head exam was generally normal. There was no scleral icterus or corneal arcus. Mucous membranes were moist. Neck was supple and without jugular venous distension, thyromegaly, or carotid bruits. Carotids were easily palpable bilaterally. There was no adenopathy. Lungs were clear to auscultation and percussion, and with normal diaphragmatic excursion. No wheezes or rales were noted. Cardiac exam revealed the PMI to be normally situated and sized. The rhythm was regular and no extrasystoles were noted during several minutes of auscultation. The first and second heart sounds were normal and physiologic splitting of the second heart sound was noted. There were no murmurs, rubs, clicks, or gallops. Abdominal exam revealed normal bowel sounds. The abdomen was soft, non-tender, and without masses, organomegaly, or appreciable enlargement of the abdominal aorta. Examination of the extremities revealed easily palpable radial, femoral and pedal pulses. There was no cyanosis, clubbing or edema. Examination of the skin revealed no evidence of significant rashes, suspicious appearing nevi or other concerning lesions. Neurologically, Neurologically, the patient is awake and alert and the patient does not have any focal neurological deficit. Cranial nerves are essentially intact. - Labs CBC & Chem 7: 08/26/23 07:32 08/26/23 07:32 Labs: Abnormal Lab Results - Last 24 Hours (Table) 08/25/23 08/25/23 08/25/23 Range/Units 12:41 16:31 22:13 RBC (4.30-5.90) m/uL Hgb (13.0-17.5) gm/dL Hct (39.0-53.0) % Sodium (137-145) mmol/L Glucose (74-99) mg/dL POC Glucose (mg/dL) 149 H 142 H 179 H (70-110) mg/dL 08/26/23 08/26/23 08/26/23 Range/Units 06:16 07:32 07:32 RBC 3.80 L (4.30-5.90) m/uL Hgb 11.6 L (13.0-17.5) gm/dL Hct 33.9 L (39.0-53.0) % Sodium 136 L (137-145) mmol/L Glucose 111 H (74-99) mg/dL POC Glucose (mg/dL) 119 H (70-110) mg/dL Assessment and Plan Plan: Severe triple-vessel coronary artery disease Patient underwent three-vessel bypass surgery, off pump and the patient is currently postop day #4. Doing well. Hemodynamically stable. Postthoracotomy, currently extubated on RA oxygen by nasal cannula. The mediastinal chest tube pleural chest tube has been removed.patient is on room air oxygen. No respiratory difficulties. Previous PCI, 2000. History of hypertension. History of hyperlipidemia. Former nicotine dependence. Mild COPD, with an FEV1 percent at 75% of predicted. Hyperglycemia, improved and the patient is currently on sliding scale insulin coverage Plan: Continue using the senna spirometer Chest tubes have been removed Patient is currently on room air oxygen and using incentive spirometer Patient is currently on aspirin, Plavix, Lipitor, and metoprolol at a dose of 50 mg twice a day, the patient is also on amlodipine 5 mg by mouth daily Increase mobility and ambulates the insulin sliding scale coverage. we'll discharge this patient home today.
--- NOTE | 2023-08-27 08:29 | PN ---
PROGRESS NOTE DATE OF SERVICE: 08/20/2023 CHIEF COMPLAINT: Coronary artery disease. HISTORY OF PRESENT ILLNESS: This gentleman is doing well. Surgery is Tuesday. He is a little bit anxious. PHYSICAL EXAMINATION: CHEST: Clear. CARDIAC: Normal. ABDOMEN: Soft, nontender. IMPRESSION: Coronary artery disease. PLAN: Coronary artery bypass graft Tuesday. MMODL / IJN: [id number] /
--- NOTE | 2023-08-27 08:37 | PN ---
PROGRESS NOTE DATE OF SERVICE: 08/21/2023 CHIEF COMPLAINT: Unstable angina. HISTORY OF PRESENT ILLNESS: This gentleman is doing well. He is going to the operating room tomorrow. He is somewhat anxious. PHYSICAL EXAMINATION: CHEST: Clear. CARDIAC: Normal. ABDOMEN: Soft, nontender. IMPRESSION: 1. Coronary artery disease. 2. Anxiety. PLAN: He will be given a small dose of anxiolytic. MMODL / IJN: [id number] /
--- NOTE | 2023-08-27 08:44 | PN ---
PROGRESS NOTE DATE OF SERVICE: 08/22/2023 CHIEF COMPLAINT: Coronary artery disease. HISTORY OF PRESENT ILLNESS: This gentleman is going to the operating room today for his CABG. He is comfortable and doing well. PHYSICAL EXAMINATION: GENERAL: Color is good. CHEST: Clear. CARDIAC: Normal. ABDOMEN: Soft, nontender. IMPRESSION: Coronary artery disease. PLAN: CABG today. MMODL / IJN: [id number] /
--- NOTE | 2023-08-27 08:49 | PN ---
PROGRESS NOTE DATE OF SERVICE: 08/23/2023 CHIEF COMPLAINT: CAD, status post CABG. HISTORY OF PRESENT ILLNESS: This gentleman is doing well. He is awake and alert. He has no confusion or neurologic deficits. He is not having any significant shortness of breath. PHYSICAL EXAMINATION: GENERAL: Color is good. He is awake, alert, and oriented. CHEST: Clear. CARDIAC: Demonstrates sinus rhythm. VITAL SIGNS: Normal. IMPRESSION: Status post CABG. PLAN: Continue to follow with Neurology, Intensive Medicine, Vascular Surgery. MMODL / IJN: [id number] /
--- NOTE | 2023-08-27 08:52 | PN ---
PROGRESS NOTE DATE OF SERVICE: 08/24/2023 CHIEF COMPLAINT: Status post CABG. HISTORY OF PRESENT ILLNESS: This gentleman is doing quite well. He has had no significant shortness of breath, palpitations, chest pain, etc. PHYSICAL EXAMINATION: VITAL SIGNS: Normal. CHEST: Clear. CARDIAC: Normal. IMPRESSION: Status post CABG. PLAN: Continue with postop care and management. MMODL / IJN: [id number] /
--- NOTE | 2023-08-27 08:59 | PN ---
PROGRESS NOTE DATE OF SERVICE: 08/25/2023 CHIEF COMPLAINT: Status post CABG. HISTORY OF PRESENT ILLNESS: This gentleman is doing very well. He has had little bit of nausea, but he is doing well otherwise. He has had no chest pain or shortness of breath. PHYSICAL EXAMINATION: GENERAL: He is afebrile. VITAL SIGNS: Normal. CHEST: Clear. CARDIAC: Normal and the dressing is dry. IMPRESSION: Status post CABG. PLAN: Increase activity and probably out of the unit today or tomorrow. MMODL / IJN: [id number] /
--- NOTE | 2023-08-27 19:34 | DS ---
DISCHARGE SUMMARY CHIEF COMPLAINT: Myocardial infarction. HISTORY OF PRESENT ILLNESS AND PHYSICAL EXAM: Details of this man's history and physical can be found in the initial workup. LABORATORY STUDIES: While he was in the hospital, he had laboratory studies, details of which can be found in the laboratory section of his chart. COURSE IN THE HOSPITAL: After admission, he was placed on bedrest, started on intravenous fluids and was put on the schedule for his CABG. This was done and he did very well postoperatively without any complications or problems. He was moved out to telemetry and doing well enough that Cardiology and Cardiac Surgery felt that he could be discharged on the . FINAL DIAGNOSES: 1. Acute non ST segment myocardial infarction. 2. Coronary artery disease. OPERATIONS: Coronary artery bypass graft. CONSULTATIONS: Cardiology, Cardiac Surgery. He is improved. WALTER / RAGHU: [id number] /
== END 2023-08-26 17:13 | disposition home health service (06) | DRG 236 ==
LOC: 3SCARD 10:06 → 2SICU 08-22 06:08 → 3SCARD 08-25 22:07
PROVIDERS: ADMIT Thoracic Surgery (Cardiothoracic Vascular Surgery); ATTEND Thoracic Surgery (Cardiothoracic Vascular Surgery)
PROC: 02L70CK Occlusion of Left Atrial Appendage with Extraluminal Device, Open Approach (ICD-10-PCS; 2023-08-22)
PROC: B24BZZ4 Ultrasonography of Heart with Aorta, Transesophageal (ICD-10-PCS; 2023-08-22)
PROC: 30233J1 Transfusion of Nonautologous Serum Albumin into Peripheral Vein, Percutaneous Approach (ICD-10-PCS; 2023-08-22)
PROC: 02100Z9 Bypass Coronary Artery, One Artery from Left Internal Mammary, Open Approach (ICD-10-PCS; principal; 2023-08-22 08:00)
PROC: 02110A3 Bypass Coronary Artery, Two Arteries from Coronary Artery with Autologous Arterial Tissue, Open Approach (ICD-10-PCS; 2023-08-22 08:00)
PROC: 03BC4ZZ Excision of Left Radial Artery, Percutaneous Endoscopic Approach (ICD-10-PCS; 2023-08-22 08:00)
PROC: 06BP4ZZ Excision of Right Saphenous Vein, Percutaneous Endoscopic Approach (ICD-10-PCS; 2023-08-22 08:00)
DX: I21.4 Non-ST elevation (NSTEMI) myocardial infarction (principal); D62 Acute posthemorrhagic anemia; J44.9 Chronic obstructive pulmonary disease, unspecified; I11.9 Hypertensive heart disease without heart failure; I25.110 Atherosclerotic heart disease of native coronary artery with unstable angina pectoris; E78.5 Hyperlipidemia, unspecified; F41.9 Anxiety disorder, unspecified; Z22.322 Carrier or suspected carrier of Methicillin resistant Staphylococcus aureus; I25.2 Old myocardial infarction; Z87.891 Personal history of nicotine dependence; Z95.5 Presence of coronary angioplasty implant and graft; Z79.82 Long term (current) use of aspirin; Z79.899 Other long term (current) drug therapy; Z88.0 Allergy status to penicillin; Z28.310 Unvaccinated for COVID-19
CPT/HCPCS: 71045; 71046; 80048; 80053; 80061; 80074; 81003; 82330; 82805; 83036; 83735; 84132; 84443; 85025; 85027; 85610; 85730; 86850; 86891; 86900; 86901; 86920; 87070; 93880; 93922; 93970; 94150; 94640; 94760

== ENCOUNTER → 2023-12-08 | Outpatient (CLI) | payer BC ==
--- NOTE | 2023-12-09 22:57 | CA ---
Transthoracic Echo Report Name: Jelani Ledesma Age: 58 Gender: M : 1965 Exam Date: 12/08/2023 15:02 Exam Location: [facility] Ht (in): 69 Wt (lb): 193 Ordering Physician: Jag Jansen MD ([id number]) Attending/Referring Phys: Clinical Outcomes Manager Krista Arias RDCS Procedure CPT: Indications: I25.9,I42.9,I50.9 HEART FAILURE, UNSPECIFIED Cardiac Hx: Technical Quality: Fair Contrast 1: Total Dose (mL): Contrast 2: Total Dose (mL): MEASUREMENTS (Male / Female) Normal Values 2D ECHO LV Diastolic Diameter PLAX 4.1 cm 4.2 - 5.9 / 3.9 - 5.3 cm LV Systolic Diameter PLAX 2.1 cm IVS Diastolic Thickness 1.4 cm 0.6 - 1.0 / 0.6 - 0.9 cm LVPW Diastolic Thickness 1.3 cm 0.6 - 1.0 / 0.6 - 0.9 cm LV Relative Wall Thickness 0.7 RV Internal Dim ED PLAX 2.9 cm LA Volume 69.9 cm??? 18 - 58 / 22 - 52 cm??? LA Volume Index 33.6 cm???/m??? 16 - 28 cm???/m??? M-MODE Aortic Root Diameter MM 3.0 cm LA Systolic Diameter MM 4.4 cm LA Ao Ratio MM 1.4 AV Cusp Separation MM 2.1 cm DOPPLER AV Peak Velocity 147.8 cm/s AV Peak Gradient 8.7 mmHg AV Mean Velocity 97.8 cm/s AV Mean Gradient 4.3 mmHg AV Velocity Time Integral 30.5 cm LVOT Peak Velocity 88.8 cm/s LVOT Peak Gradient 3.2 mmHg LVOT Velocity Time Integral 17.1 cm MV Area PHT 3.0 cm??? Mitral E Point Velocity 66.6 cm/s Mitral A Point Velocity 44.3 cm/s Mitral E to A Ratio 1.5 MV Deceleration Time 251.3 ms MV E' Velocity 8.4 cm/s Mitral E to MV E' Ratio 7.9 TR Peak Velocity 251.4 cm/s TR Peak Gradient 25.3 mmHg Right Ventricular Systolic Press 30.3 mmHg FINDINGS Left Ventricle Moderately increased left ventricular wall thickness. Left ventricular cavity size normal. Abnormal (paradoxical) septal motion consistent with postoperative state. Left ventricular ejection fraction is estimated at 50-55 %. Right Ventricle Normal right ventricular size and function. Right ventricular systolic pressure within normal limits. Right Atrium Mild right atrial dilatation. Left Atrium Mildly increased left atrial volume. Mildly increased left atrial area. Mitral Valve Structurally normal mitral valve.mild mitral annular calcification. No mitral stenosis. Mild mitral regurgitation. Aortic Valve Trileaflet aortic valve. No aortic valve stenosis or regurgitation. Tricuspid Valve Structurally normal tricuspid valve. Mild tricuspid regurgitation. Pulmonic Valve Structurally normal pulmonic valve. Pericardium No pericardial effusion. Aorta Normal size aortic root and proximal ascending aorta. CONCLUSIONS Left ventricular ejection fraction is estimated at 50-55 %. No obvious regional wall motion abnormality. Mild paradoxical septal motion No significant valvular dysfunction Mild biatrial dilatation. Normal RV size. No pericardial effusion. Previewed by: Dr Jag Jansen (Electronically Signed) Final Date: 09 December 2023 22:57
== END | disposition home or self-care (01) ==
LOC: RADECHMAIN 14:57
PROVIDERS: ATTEND Student in an Organized Health Care Education/Training Program
DX: I25.9 Chronic ischemic heart disease, unspecified (principal); I42.9 Cardiomyopathy, unspecified; I50.9 Heart failure, unspecified
CPT/HCPCS: 93306